=== PATIENT | male | born 1970 | race Caucasian/White ===

== ENCOUNTER 2020-06-16 12:19 | Emergency (ER) | payer BC, SELFPAY ==
[2020-06-16 12:20] VITALS: BP 138/101; PULSE 63; RESP 19; TEMP 36.5; O2SAT 97; BMI 29.3
--- NOTE | 2020-06-16 12:33 | HMH.EDUTC ---
[facility] [place] [facility] [place] Clinical Impression: Acute bronchitis Qualifiers: Bronchitis organism: unspecified organism Qualified Code(s): J20.9 - Acute bronchitis, unspecified Sinusitis Qualifiers: Sinusitis location: unspecified location Chronicity: acute Recurrence: non-recurrent Qualified Code(s): J01.90 - Acute sinusitis, unspecified Disposition: Home, Self-Care Condition on Discharge: Good Instructions: DI for Sinusitis, DI for Acute Bronchitis Additional Instructions: Drink plenty of fluids. Take tylenol or ibuprofen for pain or fever. Take the medications as directed. Follow up with your regular doctor. GO TO THE ER FOR ANY WORSENING SYMPTOMS The cough medication (promethazine dm) will make you drowsy, so don't drive or operate heavy machinery after taking it. Prescriptions: Albuterol Sulfate [Albuterol Sulfate Hfa] 2 puffs IH Q6HP PRN 30 Days #1 hfa.aer.ad PRN Reason: Shortness Of Breath Transmission Status: Received by [facility] Promethazine/Dextromethorphan [Promethazine-Dm Syrup] 5 ml PO Q6HP PRN #240 syrup PRN Reason: Cough Transmission Status: Received by [facility] Amoxicillin/Potassium Clav [Augmentin 875-125 Tablet] 1 tab PO Q12H 10 Days #20 tab Transmission Status: Received by [facility] predniSONE [Prednisone 20mg Tab] 20 mg PO BID 5 Days #10 tab Transmission Status: Received by [facility] Referrals: PCP,No [Primary Care Provider] - Forms: Work/School Release Time of Disposition: 12:52 Medical Decision Making - Medical Records Medical records reviewed: No: I reviewed the patient's medical records. - Fran Inquiry Pt receiving controlled substance: No Vital Signs: 06/16/20 12:20 06/16/20 13:15 Temperature 97.7 F 98 F Temperature Source Oral Pulse Rate 67 Pulse Rate [Right] 63 Respiratory Rate 19 16 Blood Pressure 133/90 Blood Pressure [Right Arm] 138/101 H Blood Pressure Mean [Right Arm] 113 Blood Pressure Source [Right Arm] Automatic Cuff Blood Pressure Position [Right Arm] Sitting 02 Sat by Pulse Oximetry 97 Oxygen Delivery Method Room Air [facility] [place] [facility] [place] - General Stated complaint: possible bronchitis, ear pian, sinus Time Seen by Provider: 06/16/20 12:33 - History of Present Illness Provider Complaint: He states that for the past 3 days he has been getting more congested in his chest and sinuses. He usually gets a sinus infection and bronchitis at this time every year. He denies that he has had any contact with someone with covid-19. He refuses a covid test today. - Related Data Previous Rx's Medication Instructions Recorded Ibuprofen [Ibuprofen 600mg Tab] 600 mg PO Q6H PRN #20 tab 07/21/17 Sulfamethoxazole/Trimethoprim 1 each PO BID #20 tab 07/21/17 [Bactrim DS tablet] cephALEXin [Keflex 500mg Cap] 500 mg PO QID #40 cap 07/21/17 Albuterol Sulfate [Albuterol 2 puffs IH Q6HP PRN 30 Days #1 06/16/20 Sulfate Hfa] hfa.aer.ad Amoxicillin/Potassium Clav 1 tab PO Q12H 10 Days #20 tab 06/16/20 [Augmentin 875-125 Tablet] Promethazine/Dextromethorphan 5 ml PO Q6HP PRN #240 syrup 06/16/20 [Promethazine-Dm Syrup] predniSONE [Prednisone 20mg 20 mg PO BID 5 Days #10 tab 06/16/20 Tab] Allergies Allergy/AdvReac Type Severity Reaction Status Date / Time grass pollen-perennial rye, Allergy Verified 07/21/17 13:52 standar shellfish derived Allergy Verified 07/21/17 13:52 [facility] History - Hepatitis A Screen Attestation statement:: This patient has been screened for Hepatitis A risk factors. I have reviewed the patient's past medical history: Yes - Social History Smoking Status: Current every day smoker Tobacco Type: cigarettes Alcohol Intake: never ROS Obtained: Yes All systems reviewed & no additional complaints - Constitutional Constitutional: Denies body ache, Denies chills, Denies fever(s), Reports poor appetite, Reports malaise - Eyes Eyes: Denies eye disch
[2020-06-16 13:15] VITALS: BP 133/90; PULSE 67; RESP 16; TEMP 36.6
== END 2020-06-16 13:16 | disposition home or self-care (01) ==
PROVIDERS: Emergency Provider Nurse Practitioner Family
DX: J20.9 Acute bronchitis, unspecified (principal); J01.90 Acute sinusitis, unspecified; F17.210 Nicotine dependence, cigarettes, uncomplicated
CPT/HCPCS: 99202; G0463

== ENCOUNTER 2020-09-14 19:10 | Emergency (ER) | payer BC, SELFPAY ==
[2020-09-14 19:39] VITALS: BP 142/100; PULSE 70; RESP 20; TEMP 36.4; O2SAT 98; BMI 29.9
[2020-09-14 19:43] VITALS: BP 142/100; PULSE 70; RESP 20; TEMP 36.4; O2SAT 98
--- NOTE | 2020-09-14 19:51 | HMH.EDUTC ---
[facility] [place] Clinical Impression: Schamberg's disease Tinea pedis Qualifiers: Laterality: bilateral Qualified Code(s): B35.3 - Tinea pedis Foot pain Qualifiers: Laterality: bilateral Qualified Code(s): M79.671 - Pain in right foot Disposition: Home, Self-Care Condition on Discharge: Good Instructions: DI for Athlete's Foot Additional Instructions: Use the medication as directed. Rest and elevated your feet frequently for next few days. Follow up with your primary care doctor. Follow up with the school bus driver/teacher assistant (Dr. Carlton). I put in a referral but you will need to call her office to schedule an appointment. Her office number will be on this paperwork. GO TO THE ER FOR ANY WORSENING SYMPTOMS OR CONCERNS Prescriptions: Clotrimazole 1 applicatio TP BID 14 Days #1 tube Transmission Status: Received by [id number] Referrals: Provider,Referral, [Primary Care Provider] - Akilah Foster DPM [Staff Physician] - Forms: Work/School Release Time of Disposition: 20:08 Medical Decision Making - Medical Records Medical records reviewed: No: I reviewed the patient's medical records. - Fran Inquiry Pt receiving controlled substance: No Vital Signs: 09/14/20 19:39 09/14/20 19:43 Temperature 97.5 F L 97.5 F L Temperature Source Oral Pulse Rate 70 Pulse Rate [Left] 70 Respiratory Rate 20 20 Blood Pressure 142/100 H Blood Pressure [Right Arm] 142/100 H Blood Pressure Mean [Right Arm] 114 02 Sat by Pulse Oximetry 98 [facility] [place] - General Stated complaint: Rash on both feet Time Seen by Provider: 09/14/20 19:51 Mode of Arrival: Ambulatory Source of Information: Patient Limitations: No Limitations Description of Symptoms (Recalled from Triage Doc. by RN): Rash with blisters on bilateral feet that pt noticed tonight. HEENT Symptoms (Recalled from RN notes): No Resp Symptoms (Recalled from RN notes): No Skin Symptoms (Recalled from RN notes): Yes MS Symptoms (Recalled from RN notes): No Functional Status (Recalled from RN notes): wnl - History of Present Illness Provider Complaint: He states that for the past 2 weeks he has noted orangish small spots on both his feet. He also has had itching between his toes on both his feet. He denies any history of diabetes. - Related Data Previous Rx's Medication Instructions Recorded Ibuprofen [Ibuprofen 600mg Tab] 600 mg PO Q6H PRN #20 tab 07/21/17 Albuterol Sulfate [Albuterol 2 puffs IH Q6HP PRN 30 Days #1 06/16/20 Sulfate Hfa] hfa.aer.ad Clotrimazole 1 applicatio TP BID 14 Days #1 tube 09/14/20 Allergies Allergy/AdvReac Type Severity Reaction Status Date / Time grass pollen-perennial rye, Allergy Verified 09/14/20 19:42 standar shellfish derived Allergy Verified 09/14/20 19:42 - Worker's Comp Is this a Worker's Comp case?: No [facility] History - Hepatitis A Screen Drug use history?: No High risk sexual behaviors?: No History of sexually transmitted infection?: No Currently employed?: No Childcare worker?: No Do you have indoor plumbing?: Yes Do you have electricity?: Yes Attestation statement:: This patient has been screened for Hepatitis A risk factors. I have reviewed the patient's past medical history: Yes Medical History: Reports:: Anxiety, Gastroesophageal Reflux Disease(GERD), Hypertension Comment: Exploratory surgery of testicles - Social History Smoking Status: Current every day smoker Tobacco Type: cigarettes # Packs/Day (cigarettes): 1 Alcohol Intake: never Occupational Status: other - Psychiatric History Pschychiatric History:: Reports:: Anxiety Family Hx:: Cancer ROS Obtained: Yes All systems reviewed & no additional complaints - Constitutional Constitutional: Denies chills, Denies fever(s) - Musculoskeletal Musculoskeletal: Reports system reviewed and no additional complaints, except as docu, Denies joint pain, Denies neck pain - Integumentary/Breasts Skin/Breast: Reports
== END 2020-09-14 20:11 | disposition home or self-care (01) ==
PROVIDERS: Emergency Provider Nurse Practitioner Family
DX: L81.7 Pigmented purpuric dermatosis (principal); B35.3 Tinea pedis; K21.9 Gastro-esophageal reflux disease without esophagitis; I10 Essential (primary) hypertension; F41.9 Anxiety disorder, unspecified; F17.210 Nicotine dependence, cigarettes, uncomplicated
CPT/HCPCS: 99202; G0463

== ENCOUNTER 2020-11-05 23:43 | Emergency (ER) | payer BC, SELFPAY ==
[2020-11-06 00:13] VITALS: BP 135/85; PULSE 85; RESP 16; TEMP 36.8; O2SAT 96; BMI 29.9
--- NOTE | 2020-11-06 00:19 | XR_ITS ---
PROCEDURE INFORMATION: Exam: XR Left Knee Exam date and time: 11/06/2020 12:19 AM Age: 50 years old Clinical indication: Patient HX: Pain and swelling left knee no known injury; Additional info: Pain, swelling TECHNIQUE: Imaging protocol: XR Left knee. Views: 3 views. COMPARISON: No relevant prior studies available. FINDINGS: Bones/joints: No acute fracture. No dislocation. No joint effusion. Joint space is preserved. Soft tissues: Normal. IMPRESSION: No acute findings.
--- NOTE | 2020-11-06 02:40 | HMH.EDGENADL ---
ED Disposition Clinical Impression: Swelling Disposition: Home, Self-Care Condition on Discharge: Good Referrals: Preston Vallejo APRN [Primary Care Provider] - - Critical Care Critical Care Time: No Attestation: On 11/05/20, the high probability of a clinically significant, sudden or life threatening deterioration of the following system(s) required my full and direct attention, intervention and personal management. The time I documented below is in addition to time spent performing reported procedures but includes the following listed in this critical care notation. Medical Decision Making - Fran Inquiry Pt receiving controlled substance: No Vital Signs: 11/06/20 00:13 Temperature 98.3 F Temperature Source Oral Pulse Rate [Right Brachial] 85 Respiratory Rate 16 Blood Pressure [Right Arm] 135/85 Blood Pressure Mean [Right Arm] 101 02 Sat by Pulse Oximetry 96 Oxygen Delivery Method Room Air Medical Decision Narrative: The patient is a 50-year-old male who presents to the emergency department with bilateral lower extremity swelling worse at the end of the day that seems to improve by morning. He reports it is worse when he is on his feet all day. He denies any current pain but reports when he is swelling his legs feel tight. He denies any difficulty with ambulation. He denies any calf pain. On physical exam he has no tenderness, edema, full range of motion. X-ray of left knee obtained because he complained of pain to the nurse. X-rays were negative. This was all discussed with the patient. I recommended compression socks and elevation. He will follow-up with his primary care doctor next week for further work-up. He was given return precautions and discharged. General Adult HPI - General Chief complaint: PAIN Stated complaint: Swelling in Left Leg Time Seen by Provider: 11/06/20 00:02 Mode of Arrival: Ambulatory Source of Information: Patient Limitations: No Limitations Description of Symptoms (Recalled from ER Triage Doc. by RN): Pt here with pain in the left knee. No known injury. Reports swelling, pain, and difficulty bearing weight. - History of Present Illness HPI narrative: The patient is a 50-year-old male who presents to the emergency department with bilateral swelling. He reports it is worse at the end of the day after he is on his feet all day. He reports his left leg is sometimes worse. He denies pain but does report they sometimes feel tight near the end of the day and sometimes looks slightly reddish in color. The symptoms resolved by the next morning. He denies any chest pain or shortness of breath. He has never had a blood clot. He denies any issues with his heart. He denies any current pain or swelling he has not taken any medication for his symptoms. He did complain to the nurse of left knee pain which he denies for me and has full range of motion with no tenderness to palpation. - Related Data Home Medications Medication Instructions Recorded Confirmed Cariprazine HCl [Vraylar] 3 mg PO DAILY 11/06/20 11/06/20 Clotrimazole 1 applicatio TP BID 11/06/20 11/06/20 hydroCHLOROthiazide 12.5 mg PO DAILY 11/06/20 11/06/20 [Hydrochlorothiazide 12.5mg Tab] Previous Rx's Medication Instructions Recorded albuterol sulfate 90 mcg/actuation 2 inh INHALATION Q4-6H PRN #1 each 10/19/20 breath activated powder inhaler Allergies Allergy/AdvReac Type Severity Reaction Status Date / Time grass pollen-perennial rye, Allergy Verified 11/06/20 00:17 standar shellfish derived Allergy Verified 11/06/20 00:17 [facility] History - Hepatitis A Screen Drug use history?: No High risk sexual behaviors?: No History of sexually transmitted infection?: No Currently employed?: No Childcare worker?: No Do you have indoor plumbing?: Yes Do you have electricity?: Yes Attestation statement:: This patient has been screened for Hepatitis A risk factors. Medical Histor
[2020-11-06 02:49] VITALS: BP 129/75; PULSE 81; RESP 16; TEMP 36.8; O2SAT 98
== END 2020-11-06 02:50 | disposition home or self-care (01) ==
PROVIDERS: Emergency Provider Emergency Medicine; PCP Nurse Practitioner Family
DX: R60.0 Localized edema (principal); M25.562 Pain in left knee; K21.9 Gastro-esophageal reflux disease without esophagitis; I10 Essential (primary) hypertension; F41.9 Anxiety disorder, unspecified; F17.210 Nicotine dependence, cigarettes, uncomplicated
CPT/HCPCS: 73562; 99282

== ENCOUNTER 2020-12-10 09:11 | Emergency (ER) | payer SELFPAY ==
[2020-12-10 09:51] VITALS: BP 172/102; PULSE 65; RESP 22; TEMP 36.8; O2SAT 95; BMI 29.5
[2020-12-10 09:57] VITALS: BP 172/102; PULSE 65; RESP 21; TEMP 36.8
--- NOTE | 2020-12-10 10:30 | XR_ITS ---
PROCEDURE: XR CHEST 2V CLINICAL HISTORY: cough, congestion COMPARISON: No exams were available for comparison FINDINGS: The cardiomediastinal silhouette and pulmonary vascularity are within normal limits. The lungs are clear without infiltrates, suspicious nodules, or pleural effusions. No acute bony abnormalities. IMPRESSION: No acute findings. Dictated by: Carlos A Mcmahon MD 12/10/2020 11:03 Carlos A Mcmahon MD in [place] 12/10/2020 11:03
--- NOTE | 2020-12-10 11:13 | HMH.EDUTC ---
[facility] [place] Clinical Impression: Acute bronchitis Qualifiers: Bronchitis organism: unspecified organism Qualified Code(s): J20.9 - Acute bronchitis, unspecified Sinusitis Qualifiers: Sinusitis location: unspecified location Chronicity: acute Recurrence: non-recurrent Qualified Code(s): J01.90 - Acute sinusitis, unspecified Disposition: Home, Self-Care Condition on Discharge: Good Instructions: How to Use a Metered-Dose Inhaler, DI for Sinusitis, DI for Acute Bronchitis, Albuterol Oral Inhalation Additional Instructions: Drink plenty of fluids. Take tylenol or ibuprofen for pain or fever. Take the medications as directed. Follow up with your regular doctor. GO TO THE ER FOR ANY WORSENING SYMPTOMS Quarantine until you know the results of your covid-19 test. If it is positive, the health department should call you and give you further instructions about your length of Quarantine and other things. Notify your school or workplace of your results and follow their instructions regarding return to work/school. The cough medication (promethazine dm) will make you drowsy, so don't drive or operate heavy machinery after taking it. Take it at bed time if you are coughing too bad to sleep. The tessalon perles should help your cough some during the day and not make you drowsy. Follow up with your primary care physician regarding your elevated blood pressure. Prescriptions: Albuterol Sulfate [Albuterol Sulfate Hfa] 2 puffs IH Q6HP PRN 30 Days #1 each PRN Reason: Shortness Of Breath Transmission Status: Received by [facility] Promethazine/Dextromethorphan [Promethazine-Dm Syrup] 5 ml PO Q6HP PRN #240 ml PRN Reason: Cough Transmission Status: Received by [facility] Amoxicillin/Potassium Clav [Augmentin 875-125 Tablet] 1 tab PO Q12H 10 Days #20 tab Transmission Status: Received by [facility] methylPREDNISolone [Medrol] 4 mg PO DIRECTED 6 Days #21 packet Transmission Status: Received by [facility] Benzonatate [Tessalon Perle 100mg Cap] 100 mg PO TIDP PRN #30 cap PRN Reason: Cough Transmission Status: Received by [facility] Referrals: Klaber,Preston, [employer] [Primary Care Provider] - Forms: Work/School Release Time of Disposition: 11:24 Medical Decision Making - Medical Records Medical records reviewed: No: I reviewed the patient's medical records. - Fran Inquiry Pt receiving controlled substance: No Vital Signs: 12/10/20 09:51 12/10/20 09:57 Temperature 98.2 F 98.2 F Temperature Source Oral Pulse Rate 65 Pulse Rate [Left] 65 Respiratory Rate 22 21 Blood Pressure 172/102 H Blood Pressure [Right Arm] 172/102 H Blood Pressure Mean [Right Arm] 125 02 Sat by Pulse Oximetry 95 Oxygen Delivery Method Room Air Orders (Tests/Meds): ED MEDICATIONS Discontinued Medications Generic Name Dose Route Start Last Admin Trade Name Freq PRN Reason Stop Dose Admin Ceftriaxone Sodium 1 gm 12/10/20 11:13 Ceftriaxone 1gm Vial IM 12/10/20 11:14 ONCE ONE Lidocaine HCl 0 ml 12/10/20 11:13 Lidocaine 1% 5ml Pf Vial IM 12/10/20 11:14 ONCE ONE Methylprednisolone Sodium Succinate 125 mg 12/10/20 11:13 Methylprednisolone Sod Succ 125mg Vial IM 12/10/20 11:14 ONCE ONE ORDERS Category Date Time Status Covid-19 Nasal PCR ([facility]) Routine Lab 12/10/20 11:27 Re[place] [facility] [place] - General Stated complaint: Covid test / throat, cough, sob, jordan,wk, aches Time Seen by Provider: 12/10/20 10:00 Mode of Arrival: Ambulatory Source of Information: Patient Limitations: No Limitations Description of Symptoms (Recalled from Triage Doc. by RN): pt c/o L ear draining, drainage in the back of his throat, and cough x1wk. pt states he thinks he has bronchitis. HEENT Symptoms (Recalled from RN notes): Yes (L ear drainage and nasal drainage down throat) Resp Symptoms (Recalled from RN notes): Yes (cough) Skin Symp
== END 2020-12-10 11:32 | disposition home or self-care (01) ==
PROVIDERS: Emergency Provider Nurse Practitioner Family; PCP Nurse Practitioner Family
DX: J20.9 Acute bronchitis, unspecified (principal); J01.90 Acute sinusitis, unspecified; Z20.822 Contact with and (suspected) exposure to COVID-19; K21.9 Gastro-esophageal reflux disease without esophagitis; I10 Essential (primary) hypertension; F17.210 Nicotine dependence, cigarettes, uncomplicated
CPT/HCPCS: 71046; 99202; G0463; U0003

== ENCOUNTER 2021-03-05 11:48 | Emergency (ER) | payer BC, SELFPAY ==
--- NOTE | 2021-03-05 12:33 | XR_ITS ---
PROCEDURE INFORMATION: Exam: XR Chest Exam date and time: 03/05/2021 12:33 PM Age: 50 years old Clinical indication: Cough TECHNIQUE: Imaging protocol: XR of the chest. Views: 2 views. COMPARISON: CR XR CHEST 2V 12/10/2020 10:32 AM FINDINGS: Lungs: Hyperexpanded lung valle consistent with COPD. Mild opacities in the left lung base may represent atelectasis or pneumonia.. Pleural spaces: Unremarkable. No pleural effusion. No pneumothorax. Heart/Mediastinum: Unremarkable. No cardiomegaly. Bones/joints: Unremarkable. IMPRESSION: Mild opacities in the left lung base may represent atelectasis or pneumonia..
[2021-03-05 12:38] VITALS: BP 146/107; PULSE 68; RESP 28; TEMP 37.5; O2SAT 100; BMI 29.5
[2021-03-05 13:00] LABS: Adenovirus,PCR Not Detected (NotDetected); Bordetella Pertussis Not Detected (NotDetected); Chlamydophila Pneumoniae, PCR Not Detected (NotDetected); Coronavirus 229E Not Detected (NotDetected); Coronavirus NL63 Not Detected (NotDetected); Coronavirus OC43 Not Detected (NotDetected); Coronovirus HKU1,PCR Not Detected (NotDetected); Human Metapneumovirus Not Detected (NotDetected); Influenza A, PCR Not Detected (NotDetected); Influenza AH1, 2009 Not Detected (NotDetected); Influenza AH1, PCR Not Detected (NotDetected); Influenza AH3,PCR Not Detected (NotDetected); Influenza B, PCR Not Detected (NotDetected); Mycoplasma Pneumoniae, PCR Not Detected (NotDetected); Parainfluenza 1, PCR Not Detected (NotDetected); Parainfluenza 2, PCR Not Detected (NotDetected); Parainfluenza 3, PCR Not Detected (NotDetected); Parainfluenza 4, PCR Not Detected (NotDetected); Respiratory Syncytial Virus Not Detected (NotDetected); Rhinovirus/Enterovirus Not Detected (NotDetected)
--- NOTE | 2021-03-05 13:03 | HMH.EDUTC ---
[facility] [place] Clinical Impression: Bronchitis Sinusitis Qualifiers: Sinusitis location: unspecified location Chronicity: acute Recurrence: non-recurrent Qualified Code(s): J01.90 - Acute sinusitis, unspecified Disposition: Home, Self-Care Condition on Discharge: Good Instructions: DI for Sinusitis Additional Instructions: Drink plenty of fluids. Take tylenol or ibuprofen for pain or fever. Take the medications as directed. Follow up with your regular doctor. GO TO THE ER FOR ANY WORSENING SYMPTOMS Quarantine until you know the results of your covid-19 test. If it is positive, the health department should call you and give you further instructions about your length of Quarantine and other things. Notify your school or workplace of your results and follow their instructions regarding return to work/school. Prescriptions: Promethazine/Dextromethorphan [Promethazine-Dm Syrup] 5 ml PO Q6HP PRN #240 ml PRN Reason: Cough Transmission Status: Received by [facility] Amoxicillin/Potassium Clav [Augmentin 875-125 Tablet] 1 tab PO Q12H 10 Days #20 tab Transmission Status: Received by [facility] predniSONE [Deltasone 10mg tablet] 10 mg PO DAILY 9 Days #21 tab Transmission Status: Received by [facility] guaiFENesin [Mucinex 600mg tablet] 1 - 2 tab PO BIDP PRN #30 tab PRN Reason: Congestion Transmission Status: Received by [facility] Referrals: Preston Vallejo APRN [Primary Care Provider] - Forms: Work/School Release Time of Disposition: 13:37 Medical Decision Making - Medical Records Medical records reviewed: No: I reviewed the patient's medical records. - Fran Inquiry Pt receiving controlled substance: No Vital Signs: 03/05/21 12:38 03/05/21 13:56 Temperature 99.5 F 99.5 F Temperature Source Oral Pulse Rate 68 Pulse Rate [Left] 68 Respiratory Rate 28 H 26 H Blood Pressure 146/107 H Blood Pressure [Right Arm] 146/107 H Blood Pressure Mean [Right Arm] 120 02 Sat by Pulse Oximetry 100 - Lab Data Lab Results 03/05/21 12:42: Chlamy pneumoniae PCR Not detected, Adenovirus (PCR) Not detected, B. pertussis DNA (PCR) Not detected, Coronavirus OC43 (PCR) Not detected, Coronavirus HKU1 (PCR) Not detected, Coronavirus 229E (PCR) Not detected, SARS-CoV-2 (PCR) Detected A, Coronavirus NL63 (PCR) Not detected, Human Metapneumovir PCR Not detected, Influenza A (H1) PCR Not detected, Influ A (H1N1/09) PCR Not detected, Influenza A (H3) PCR Not detected, Influenza Type A (PCR) Not detected, Influenza Type B (PCR) Not detected, M. pneumoniae (PCR) Not detected, Parainfluenza 1 (PCR) Not detected, Parainfluenza 2 (PCR) Not detected, Parainfluenza 3 (PCR) Not detected, Parainfluenza 4 (PCR) Not detected, RSV (PCR) Not detected, Entero/Rhino (PCR) Not detected 03/05/21 12:42: Strep Scn Rapid Clinic Negative Orders (Tests/Meds): ORDERS Category Date Time Status Strep Screen Confirmation Stat Micro 03/05/21 12:42 Received [facility] [place] HPI - General Stated complaint: weakness, runny nose, headache, congestion Time Seen by Provider: 03/05/21 13:03 Mode of Arrival: Ambulatory Source of Information: Patient Limitations: No Limitations Description of Symptoms (Recalled from Triage Doc. by RN): pt c/o myalgia, chills, weakness, loss of appetite, congestion, MIXON, diarrhea, bilateral ear aches, dizziness and SOA. HEENT Symptoms (Recalled from RN notes): Yes (MIXON, bilateral ear aches, congestion and dizziness) Resp Symptoms (Recalled from RN notes): Yes (SOA and nonproductive cough) Skin Symptoms (Recalled from RN notes): No MS Symptoms (Recalled from RN notes): No Functional Status (Recalled from RN notes): wnl - History of Present Illness Provider Complaint: He c/o body aches, cough, sinus congestion for the past 4 days. - Related Data Home Medications Medication Instructions Recorded Confirmed Cariprazine HCl [Vraylar] 3 mg PO DAILY 11/06/20
[2021-03-05 13:49] LABS: UTC Strep Screen (Rapid) Negative (Negative)
[2021-03-05 13:56] VITALS: BP 146/107; PULSE 68; RESP 26; TEMP 37.5
[2021-03-05 18:44] LABS: Coronavirus 19, PCR Detected (NotDetected)
== END 2021-03-05 13:58 | disposition home or self-care (01) ==
PROVIDERS: Emergency Provider Nurse Practitioner Family; PCP Nurse Practitioner Family
DX: J01.90 Acute sinusitis, unspecified (principal); J20.9 Acute bronchitis, unspecified; U07.1 COVID-19; K21.9 Gastro-esophageal reflux disease without esophagitis; I10 Essential (primary) hypertension; F41.9 Anxiety disorder, unspecified; F17.210 Nicotine dependence, cigarettes, uncomplicated
CPT/HCPCS: 71046; 87581; 87632; 87798; 87880; 99202; C9803; G0463; U0003; U0005

== ENCOUNTER 2021-03-14 10:44 | Emergency (ER) | payer BC, SELFPAY ==
[2021-03-14 11:09] VITALS: BP 140/90; PULSE 68; RESP 20; TEMP 36.7; O2SAT 97; BMI 29.5
--- NOTE | 2021-03-14 12:04 | HMH.EDUTC ---
[facility] [place] Clinical Impression: COVID-19 Gastritis Qualifiers: Gastritis type: unspecified gastritis Chronicity: acute Gastritis bleeding: without bleeding Qualified Code(s): K29.00 - Acute gastritis without bleeding Disposition: Home, Self-Care Condition on Discharge: Good Instructions: DI for Gastritis, DI for COVID-19 (Suspected or Confirmed ), Preventing the Spread of Coronavirus Discharge Instructions Additional Instructions: Drink plenty of fluids. Take tylenol or ibuprofen for pain or fever. Follow up with your regular doctor. GO TO THE ER FOR ANY WORSENING SYMPTOMS Prescriptions: Ondansetron [Zofran 4mg ODT] 4 mg PO Q8HP PRN #20 tab PRN Reason: Nausea Transmission Status: Received by [id number] Famotidine [Pepcid 20mg Tablet] 20 mg PO BID 10 Days #20 tab Transmission Status: Received by [id number] Referrals: Preston Vallejo APRN [Primary Care Provider] - Forms: Work/School Release Time of Disposition: 13:11 Medical Decision Making - Medical Records Medical records reviewed: No: I reviewed the patient's medical records. - Fran Inquiry Pt receiving controlled substance: No Vital Signs: 03/14/21 11:09 03/14/21 13:29 Temperature 98.1 F 98.1 F Temperature Source Oral Pulse Rate 68 Pulse Rate [Left] 68 Respiratory Rate 20 20 Blood Pressure 140/90 Blood Pressure [Right Arm] 140/90 Blood Pressure Mean [Right Arm] 106 02 Sat by Pulse Oximetry 97 - Radiology Data #1 Image(s): Chest Image Reviewed: Yes I reviewed the patient's radiology image, Yes I have reviewed radiologist's interpretation Preliminary Findings: Normal/NAD, No Infiltrates Seen PROCEDURE: XR CHEST 2V CLINICAL HISTORY: cough, congestion COMPARISON: CR XR CHEST 2V from 12/10/2020 CR XR CHEST 2V from 03/05/2021 FINDINGS: The cardiomediastinal silhouette and pulmonary vascularity are within normal limits. The lungs are clear without infiltrates, suspicious nodules, or pleural effusions. Minimal thoracic curvature convex left. IMPRESSION: No acute findings. Dictated by: Carlos A Mcmahon MD 03/14/2021 12:27 Carlos A Mcmahon MD in 03/14/2021 12:27 Medical Decision Narrative: His primary goal for coming in today was to get excused for work b/c he was scheduled to return tonight and he still feels weak. He is afraid he will get hurt at work if he goes back feeling weak. [facility] [place] - General Stated complaint: weakness, loss of taste and smell Time Seen by Provider: 03/14/21 12:04 Mode of Arrival: Ambulatory Source of Information: Patient Limitations: No Limitations Description of Symptoms (Recalled from Triage Doc. by RN): pt states this is day 10 of his positive covid quarentine. pt states he is not feeling any better. his main complaints are weakness and diarrhea. HEENT Symptoms (Recalled from RN notes): No Resp Symptoms (Recalled from RN notes): No Skin Symptoms (Recalled from RN notes): No MS Symptoms (Recalled from RN notes): No Functional Status (Recalled from RN notes): weakness - History of Present Illness Provider Complaint: He was diagnosed with Covid-19 10 days ago. He is doing much better, but he is still having weakness and he doesn't feel like he is 100% able to go back to work tonight as scheduled. He denies any shortness of breath or chest pain. He has not ran a fever in about 6 days. He does still have some diarrhea, but he states that is has got much better over the past few days. He has some nausea when he tries to eat much, but he has not vomited. He did not take any antibiotics when he found out that he had covid and antibiotics would not help. So, he is not worried about c. diff. - Related Data Home Medications Medication Instructions Recorded Confirmed Cariprazine HCl [Vraylar] 3 mg PO DAILY 11/06/20 01/11/21 hydroCHLOROthiazide 12.5 mg PO DAILY 11/06/20 01/11/21 [Hydrochlorothiazide 12.5mg Tab] Previous R
[2021-03-14 13:29] VITALS: BP 140/90; PULSE 68; RESP 20; TEMP 36.7
== END 2021-03-14 13:30 | disposition home or self-care (01) ==
PROVIDERS: Emergency Provider Nurse Practitioner Family; PCP Nurse Practitioner Family
DX: U07.1 COVID-19 (principal); K29.00 Acute gastritis without bleeding
CPT/HCPCS: 71046; 99202; G0463

== ENCOUNTER 2021-08-10 11:30 | Emergency (ER) | payer SELFPAY ==
[2021-08-10 12:37] VITALS: BP 172/114; PULSE 89; RESP 21; TEMP 37.1; O2SAT 95; BMI 28.8
[2021-08-10 12:51] LABS: Strep Scrn Group A (Rapid) Negative (Negative)
--- NOTE | 2021-08-10 12:56 | HMH.EDUTC ---
[facility] [place] Clinical Impression: Viral syndrome, Bronchitis Disposition: Home, Self-Care Condition on Discharge: Good Instructions: DI for Acute Bronchitis, DI for Viral Syndrome Additional Instructions: Drink plenty of fluids. Take tylenol or ibuprofen for pain or fever. Take the medications as directed. Follow up with your regular doctor. GO TO THE ER FOR ANY WORSENING SYMPTOMS Quarantine until you know the results of your covid-19 test. Notify your school or workplace of your results and follow their instructions regarding return to work/school. The cough medication (promethazine dm) will make you drowsy, so don't drive or operate heavy machinery after taking it. Prescriptions: Promethazine/Dextromethorphan [Promethazine-Dm Syrup] 5 ml PO Q6HP PRN #240 ml PRN Reason: Cough Transmission Status: Received by [id number] methylPREDNISolone [Medrol] 4 mg PO DIRECTED 6 Days #21 packet Transmission Status: Received by [id number] Azithromycin [Z-Irving 250mg Tab*] 250 mg PO UD DOSE PK #6 tab Transmission Status: Received by [facility] Referrals: Provider,Referral, [Primary Care Provider] - Forms: Work/School Release Time of Disposition: 14:06 Medical Decision Making - Medical Records Medical records reviewed: No: I reviewed the patient's medical records. - Fran Inquiry Pt receiving controlled substance: No Vital Signs: 08/10/21 12:37 08/10/21 14:07 Temperature 98.7 F 98.7 F Temperature Source Oral Pulse Rate 89 Pulse Rate [Radial] 89 Respiratory Rate 21 21 Blood Pressure 160/95 H Blood Pressure [Right Arm] 172/114 H Blood Pressure Mean [Right Arm] 133 02 Sat by Pulse Oximetry 95 - Lab Data Lab results reviewed: Yes: I reviewed the patient's lab results. Lab Results 08/10/21 12:33: Group A Strep Rapid Negative 08/10/21 12:38: Influenza Type A Ag Negative, Influenza Type B Ag Negative 08/10/21 13:32: Chlamy pneumoniae PCR Not detected, Adenovirus (PCR) Not detected, B. pertussis DNA (PCR) Not detected, Coronavirus OC43 (PCR) Not detected, Coronavirus HKU1 (PCR) Not detected, Coronavirus 229E (PCR) Detected A, SARS-CoV-2 (PCR) Not detected, Coronavirus NL63 (PCR) Not detected, Human Metapneumovir PCR Not detected, Influenza A (H1) PCR Not detected, Influ A (H1N1/09) PCR Not detected, Influenza A (H3) PCR Not detected, Influenza Type A (PCR) Not detected, Influenza Type B (PCR) Not detected, M. pneumoniae (PCR) Not detected, Parainfluenza 1 (PCR) Not detected, Parainfluenza 2 (PCR) Not detected, Parainfluenza 3 (PCR) Not detected, Parainfluenza 4 (PCR) Not detected, RSV (PCR) Not detected, Entero/Rhino (PCR) Not detected Orders (Tests/Meds): ORDERS Category Date Time Status Strep Screen Confirmation Stat Micro 08/10/21 12:33 Received [facility] [place] HPI - General Stated complaint: h/a, cough, congestion, lt ear ache Time Seen by Provider: 08/10/21 12:57 Mode of Arrival: Ambulatory Source of Information: Patient Limitations: No Limitations Description of Symptoms (Recalled from Triage Doc. by RN): pt c/o sough, chillls, earache and congestion HEENT Symptoms (Recalled from RN notes): Yes Resp Symptoms (Recalled from RN notes): Yes Skin Symptoms (Recalled from RN notes): No MS Symptoms (Recalled from RN notes): No Functional Status (Recalled from RN notes): wnl - History of Present Illness Provider Complaint: He states that he has been feeling bad for the past 2 days. HE has had chiling, body aches, low grade fever, sore throat and a cough. - Related Data Home Medications Medication Instructions Recorded Confirmed Cariprazine HCl [Vraylar] 3 mg PO DAILY 11/06/20 01/11/21 hydroCHLOROthiazide 12.5 mg PO DAILY 11/06/20 01/11/21 [Hydrochlorothiazide 12.5mg Tab] Previous Rx's Medication Instructions Recorded lisinopril 10 mg tablet 10 mg PO DAILY #30 tab 01/11/21 naproxen 500 mg tablet 500 mg PO BID #30 tab 01/11/21
[2021-08-10 13:21] LABS: UTC Influenza A Antigen Negative (Negative); UTC Influenza B Antigen Negative (Negative)
[2021-08-10 13:52] LABS: Adenovirus,PCR Not Detected (NotDetected); Bordetella Pertussis Not Detected (NotDetected); Chlamydophila Pneumoniae, PCR Not Detected (NotDetected); Coronavirus 19, PCR Not Detected (NotDetected); Coronavirus NL63 Not Detected (NotDetected); Coronavirus OC43 Not Detected (NotDetected); Coronovirus HKU1,PCR Not Detected (NotDetected); Human Metapneumovirus Not Detected (NotDetected); Influenza A, PCR Not Detected (NotDetected); Influenza AH1, 2009 Not Detected (NotDetected); Influenza AH1, PCR Not Detected (NotDetected); Influenza AH3,PCR Not Detected (NotDetected); Influenza B, PCR Not Detected (NotDetected); Mycoplasma Pneumoniae, PCR Not Detected (NotDetected); Parainfluenza 1, PCR Not Detected (NotDetected); Parainfluenza 2, PCR Not Detected (NotDetected); Parainfluenza 3, PCR Not Detected (NotDetected); Parainfluenza 4, PCR Not Detected (NotDetected); Respiratory Syncytial Virus Not Detected (NotDetected); Rhinovirus/Enterovirus Not Detected (NotDetected)
[2021-08-10 14:07] VITALS: BP 160/95; PULSE 89; RESP 21; TEMP 37.1
[2021-08-10 16:10] LABS: Coronavirus 229E Detected (NotDetected)
== END 2021-08-10 14:30 | disposition home or self-care (01) ==
PROVIDERS: Emergency Provider Nurse Practitioner Family
DX: J20.9 Acute bronchitis, unspecified (principal); B34.2 Coronavirus infection, unspecified; K21.9 Gastro-esophageal reflux disease without esophagitis; I10 Essential (primary) hypertension; F41.9 Anxiety disorder, unspecified
CPT/HCPCS: 87430; 87581; 87632; 87798; 87804; 99213; C9803; G0463; U0003; U0005

== ENCOUNTER 2021-08-22 13:35 | Emergency (ER) | payer SELFPAY ==
[2021-08-22 15:10] VITALS: BP 158/111; PULSE 61; RESP 18; TEMP 36.7; O2SAT 96; BMI 32.3
--- NOTE | 2021-08-22 16:21 | HMH.EDUTC ---
[facility] [place] Disposition Clinical Impression: Acute hemorrhoid Disposition: Home, Self-Care Condition on Discharge: Good Instructions: Hemorrhoids, DI for Hemorrhoids Additional Instructions: Take a sitz bath two to three times daily for 15 to 20 minutes. Sit in warm water, covering just your hips and buttocks. This can help reduce itching and irritation. You can take a sitz bath in a few inches of water in a regular tub, but small tubs that fit over toilet seats are also available for this purpose at pharmacies. Following a sitz bath, gently pat the area dry to avoid further irritation. (2) Use ice packs on the area to relieve swelling and pain. but do not place directly on skin Don't push too hard or strain while passing a bowel movement. stool softners may help Clean your anus after each bowel movement by gently patting (rather than wiping) with moistened pads, such as baby wipes. Using hard, dry toilet paper, which may contain fragrance, can cause further irritation. Keep the area clean by bathing or showering daily with warm water. After bathing, gently pat the area dry. (2) Sit on cushions rather than hard surfaces to help lessen the swelling of hemorrhoids and keep new ones from forming. Over the counter Preparation H wipes and suppositories may help with irritation and swelling of hemorroids you can use as directed on package Follow up immediately if any worsening of symptoms Return if needed Prescriptions: Docusate Sodium [Docusate Sodium 100mg Cap] 100 mg PO DAILY #30 cap Transmission Status: Pending to [id number] Referrals: Provider,Referral, [Primary Care Provider] - As needed Forms: Work/School Release Time of Disposition: 16:36 Medical Decision Making - Fran Inquiry Pt receiving controlled substance: No Fran was queried for this patient: No Vital Signs: 08/22/21 15:10 Temperature 98.0 F Temperature Source Oral Pulse Rate [Left Brachial] 61 Respiratory Rate 18 Blood Pressure [Left Arm] 158/111 H Blood Pressure Mean [Left Arm] 126 Blood Pressure Source [Left Arm] Automatic Cuff Blood Pressure Position [Left Arm] Sitting 02 Sat by Pulse Oximetry 96 Oxygen Delivery Method Room Air Medical Decision Narrative: Discussed prescription medication for hemorrhoids and patient declined states that he doesnt have any insurance and wanted to try OTC medications first and he would return if they did not work for prescription medications [facility] [place] HPI - General Stated complaint: hemorrhoid pain Time Seen by Provider: 08/22/21 16:21 Mode of Arrival: Ambulatory Source of Information: Patient, Spouse Limitations: No Limitations Description of Symptoms (Recalled from Triage Doc. by RN): PATIENT C/O BLEEDING HEMMORHOIDS SINCE SUNDAY HEENT Symptoms (Recalled from RN notes): No Resp Symptoms (Recalled from RN notes): No Skin Symptoms (Recalled from RN notes): No MS Symptoms (Recalled from RN notes): No Functional Status (Recalled from RN notes): WNL - History of Present Illness Provider Complaint: Patient states that he has had problems with hemorrhoids for years and constipatin States that he was constipated recently and strained to go to the bathroom and every since he has been having issues with a hemorrhoid States that it bleed last week but not since States that he has been using some cream on it but not helping much so he came in to see if there was something else he could get to make it go down - Related Data Home Medications Medication Instructions Recorded Confirmed Cariprazine HCl [Vraylar] 3 mg PO DAILY 11/06/20 01/11/21 hydroCHLOROthiazide 12.5 mg PO DAILY 11/06/20 01/11/21 [Hydrochlorothiazide 12.5mg Tab] Previous Rx's Medication Instructions Recorded lisinopril 10 mg tablet 10 mg PO DAILY #30 tab 01/11/21 naproxen 500 mg tablet 500 mg PO BID #30 tab 01/11/21 Famotidine [Pepcid 20mg Tablet] 20 mg PO BID 10 Days #20 tab 03/14/21 Ondansetron [Zofran 4mg ODT] 4 mg PO Q8
[2021-08-22 16:37] VITALS: BP 158/111; PULSE 61; RESP 18; TEMP 36.7; O2SAT 96
== END 2021-08-22 16:41 | disposition home or self-care (01) ==
PROVIDERS: Emergency Provider Nurse Practitioner
DX: K64.8 Other hemorrhoids (principal); I10 Essential (primary) hypertension; K59.00 Constipation, unspecified; K21.9 Gastro-esophageal reflux disease without esophagitis; F17.210 Nicotine dependence, cigarettes, uncomplicated
CPT/HCPCS: 99212; G0463

== ENCOUNTER 2022-03-17 17:12 | Emergency (ER) | payer BC, SELFPAY ==
[2022-03-17 17:30] VITALS: BP 156/98; PULSE 70; RESP 19; TEMP 36.8; O2SAT 98; BMI 29.0
--- NOTE | 2022-03-17 17:37 | EXP.UTC ---
Discharge Plan Disposition Patient Disposition: Home, Self-Care Condition: Good Prescriptions Prescriptions: New prednisone [prednisone] 20 mg tablet 20 mg PO BID 5 Days Qty: 10 0RF pseudoephedrine HCl [12 Hour Decongestant] 120 mg Tablet Extended Release 120 mg PO Q12H Qty: 20 0RF cefdinir 300 mg capsule 300 mg PO BID 20 Days Qty: 20 0RF hydroxyzine pamoate [Vistaril] 25 mg capsule 25 mg PO TID Qty: 30 0RF Referrals Follow up/Referrals: Kristina Wright APRN [Primary Care Provider] - See instructions Activity Restrictions/Add. Instructions Additional Instructions/Restrictions: Follow up with Kristina if not improving Warm salt water gargles Clinical Impressions Clinical Impression: Uvulitis, Post-nasal drainage Instructions Patient Instructions: DI for Uvulitis [place]charge ED Provider[place] Ignacia Casas [facility] [place] General Stated complaint: sore throat, Congestion Time Seen by Provider: 03/17/22 17:38 History of Present Illness Provider Complaint: Patient has had cough, congestion, burning in chest for about a week. Thought he had bronchitis and it would run its course. Woke up today just [employer] and felt like he was choking. States he is gagging on mucous in the back of his throat and his uvula is swollen. If he drops his chin towards his chest, he feels as if uvula is blocking his airway. No fever. Onset (ago): hour(s) (3) Location: mouth Radiation: non-radiation Severity: moderate Severity scale (1-10): 8 Quality: burning Relieving factors: none Exacerbating factors: none Associated symptoms: denies other symptoms Treatments prior to arrival: none Related Data Previous Rx's Medication Instructions Recorded cefdinir 300 mg capsule 300 mg PO BID 20 days #20 caps 03/17/22 hydroxyzine pamoate 25 mg capsule 25 mg PO TID #30 caps 03/17/22 (Vistaril) prednisone 20 mg tablet 20 mg PO BID 5 days #10 tabs 03/17/22 pseudoephedrine HCl 120 mg 120 mg PO Q12H #20 tabs 03/17/22 tablet,extended release (12 Hour Decongestant ER) Allergies Allergy/AdvReac Type Severity Reaction Status Date / Time grass pollen-perennial rye, Allergy Verified 09/13/21 16:05 standar shellfish derived Allergy Verified 09/13/21 16:05 [facility] Disclaimer: The information contained in this section may have been updated after the patient was seen, as this information can be updated by other users. Medical History (Updated 03/17/22 @ 18:06 by CARMELA Beck) Anxiety Depression Social History (Updated 03/17/22 @ 17:39 by Kami Munroe RN) Smoking Status: Current every day smoker tobacco type: cigarettes packs per day: 1 second hand exposure: No alcohol intake: never current occupational status: other Travel in the last 8 weeks: None ROS Obtained: Yes All systems reviewed & no additional complaints except as documented ENT Ears, Nose, Mouth, and Throat: Reports as per HPI and Reports sore throat Physical Exam General General appearance: alert and in no apparent distress Head Head exam: atraumatic, normocephalic and normal inspection Eye Eye exam: Present normal appearance, PERRL and EOMI ENT ENT exam: Present TM's normal bilaterally Expanded ENT Exam Mouth exam: Absent drooling or tongue swelling Throat exam: Absent tonsillar erythema, tonsillomegaly or tonsillar exudate Comment: thick discolored PND Uvula swollen, without deviation Neck Neck exam: Present normal inspection, full ROM and trachea midline; Absent meningismus or lymphadenopathy Chest Chest inspection: Present normal inspection and symmetric chest wall rise; Absent tenderness Respiratory Respiratory exam: Present normal lung sounds bilaterally; Absent respiratory distress Cardiovascular Cardiovascular exam: Present regular rate and normal rhythm; Absent JVD Abdominal Exam Abdominal exam: Present soft and normal bowel sounds; Absent distention, tenderness or guarding Extremities Exam
[2022-03-17 18:10] VITALS: BP 156/98; PULSE 70; RESP 19; TEMP 36.8; O2SAT 98
[2022-03-17 18:11] LABS: UTC Strep Screen (Rapid) Negative (Negative)
== END 2022-03-17 18:18 | disposition home or self-care (01) ==
PROVIDERS: Emergency Provider Physician Assistant; PCP Nurse Practitioner Family
DX: R09.82 Postnasal drip (principal); K12.2 Cellulitis and abscess of mouth
CPT/HCPCS: 87880; 99212; G0463

== ENCOUNTER → 2022-10-11 13:56 | Outpatient (CLI) | payer BC, SELFPAY ==
--- NOTE | 2022-10-11 14:07 | XR_ITS ---
FINAL REPORT CLINICAL HISTORY: RT HIP/JOINT PAIN FINDINGS: RIGHT HIP AND PELVIS SERIES Two views of the right hip were obtained and a single AP view of the pelvis was obtained. There is no acute fracture or dislocation. The joint spaces are preserved. There is no soft tissue abnormality. There is a 7.3 cm expansile lytic lesion located in the left ischium of uncertain etiology, may represent cyst or neoplasm. IMPRESSION: No acute abnormality of the right hip. Expansile lytic lesion measuring 7.3 cm located in the left ischium of uncertain etiology, may represent cyst or neoplasm. Recommend bone scan and/MRI for further eval. Reviewed, Interpreted and Dictated by Alfonso Gleason III, MD Transcribed by Mike Awad Authenticated and [facility]
--- NOTE | 2022-10-11 14:07 | XR_ITS ---
FINAL REPORT CLINICAL HISTORY: RT HIP/JOINT PAIN FINDINGS: LUMBAR SPINE Three views demonstrate no acute fracture. There is mild degenerative change to the lumbar spine with small osteophytes. There is no malalignment. IMPRESSION: Mild degenerative change to the lumbar spine with small osteophytes. Reviewed, Interpreted and Dictated by Alfonso Gleason III, MD Transcribed by Mike Awad Authenticated and [facility]
== END ==
LOC: RAD 14:00
PROVIDERS: PCP Nurse Practitioner Family; Visit Provider Nurse Practitioner Family
DX: M25.551 Pain in right hip (principal)
CPT/HCPCS: 72100; 73502

== ENCOUNTER → 2022-10-17 09:06 | Outpatient (CLI) | payer BC, SELFPAY ==
--- NOTE | 2022-10-17 | CA_ITS ---
FINAL REPORT CLINICAL HISTORY: Spider veins- Lower leg varicosities, Smoker, DJD, Sciatica, Leg pain COMPARISON: None FINDINGS: DUPLEX VENOUS SONOGRAPHY OF THE RIGHT LOWER EXTREMITY Multiple transverse and longitudinal scans were performed of the femoropopliteal deep venous system, with augmentation and compression maneuvers. HISTORY: Varicosities, pain FINDINGS: Normal phasic flow was noted in the visualized deep venous system. No intraluminal increased echogenicity is noted to suggest thrombus. There is normal compression and augmentation of the venous structures. No abnormal venous collaterals are seen. IMPRESSION: No evidence of deep venous thrombosis of the right lower extremity. Reviewed, Interpreted and Dictated by Neeru Jackson MD Transcribed by Milagros Hansen Authenticated and [facility]
== END ==
PROVIDERS: PCP Nurse Practitioner Family; Visit Provider Nurse Practitioner Family
DX: I87.2 Venous insufficiency (chronic) (peripheral) (principal); M79.604 Pain in right leg
CPT/HCPCS: 93971

== ENCOUNTER → 2023-03-07 10:41 | Outpatient (CLI) | payer OTHER, BC, SELFPAY ==
--- NOTE | 2023-03-07 10:49 | XR_ITS ---
FINAL REPORT CLINICAL HISTORY: Foot Pain COMPARISON: None FINDINGS: RIGHT FOOT: Three views of the right foot were obtained. There is no acute fracture or dislocation. The joint spaces are intact. There is no soft tissue abnormality. IMPRESSION: No acute bony abnormality. Reviewed, Interpreted and Dictated by Alfonso Gleason III, MD Transcribed by Milagros Hansen Authenticated and [facility]
--- NOTE | 2023-03-07 10:49 | XR_ITS ---
FINAL REPORT CLINICAL HISTORY: Ankle Pain COMPARISON: None FINDINGS: RIGHT ANKLE: Three views of the right ankle were obtained. There is no acute fracture or dislocation. The joint spaces and mortise are intact. Soft tissue swelling is present. IMPRESSION: Soft tissue swelling right ankle without acute bony abnormality identified. Reviewed, Interpreted and Dictated by Alfonso Gleason III, MD Transcribed by Milagros Hansen Authenticated and [facility]
--- NOTE | 2023-03-07 10:49 | XR_ITS ---
FINAL REPORT CLINICAL HISTORY: Ankle Pain COMPARISON: None FINDINGS: LEFT ANKLE: Three views of the left ankle were obtained. There is no acute fracture or dislocation. The joint spaces and mortise are intact. There is no soft tissue abnormality. IMPRESSION: No acute bony abnormality. Reviewed, Interpreted and Dictated by Alfonso Gleason III, MD Transcribed by Milagros Hansen Authenticated and [facility]
--- NOTE | 2023-03-07 10:49 | XR_ITS ---
FINAL REPORT CLINICAL HISTORY: Foot Pain COMPARISON: None FINDINGS: LEFT FOOT: Three views of the left foot were obtained. There is no acute fracture or dislocation. The joint spaces are intact. There is no soft tissue abnormality. IMPRESSION: No acute bony abnormality. Reviewed, Interpreted and Dictated by Alfonso Gleason III, MD Transcribed by Milagros Hansen Authenticated and [facility]
[2023-03-07 13:34] LABS: Basophils # 0.1 K/mm3 (0-0.2); Basophils % 0.4 % (0.1-2.0); Eosinophils # 0.3 K/mm3 (0.0-0.4); Eosinophils % 2.7 % (0.1-12.0); Hematocrit 48.4 % (42.0-52.0); Hemoglobin 16.5 g/dL (14.1-18.0); Lymphocytes # 4.6 K/mm3 (0.7-4.5); Lymphocytes % 37.4 % (10-50); Mean Corpuscular HGB Conc 34.1 g/dL (31.8-35.4); Mean Corpuscular Hemoglobin 29.8 pg (27.0-31.2); Mean Corpuscular Volume 87.6 fl (80-94); Monocytes # 1.1 K/mm3 (0.1-1.0); Neutrophils # 6.3 K/mm3 (1.8-7.8); Neutrophils % 50.4 % (37.0-80.0); Platelet Count 282 K/mm3 (142-424); Red Blood Count 5.53 M/mm3 (4.60-6.20); Red Cell Distribution Width 14.1 % (11.5-17.5); White Blood Count 12.4 K/mm3 (4.8-10.8)
[2023-03-07 14:26] LABS: Alanine Aminotransferase 29 U/L (12-78); Albumin Level 4.3 g/dl (3.5-5.0); Albumin/Globulin Ratio 1.6 (1.1-1.8); Alkaline Phosphatase 89 U/L (38-126); Aspartate Amino Transferase 21 U/L (17-59); Bilirubin,Total 0.4 mg/dl (0.2-1.3); Blood Urea Nitrogen 15 mg/dl (9-20); Calcium 9.3 mg/dl (8.4-10.2); Carbon Dioxide 25 mmol/L (22.0-30.0); Chloride 105 mmol/L (98-107); Estimated Glomerular Filt Rate 78 ml/min (>60); GFR (African American) 95 ML/MIN (>60); Globulin 2.7 g/dL (1.3-3.2); Glucose 98 mg/dl (74-100); Sodium 138 mmol/L (136-145)
[2023-03-07 14:32] LABS: C-Reactive Protein 43.2 mg/L (0-4)
[2023-03-07 14:35] LABS: Erythrocyte Sedimentation Rate 29 mm/hr (0-20)
== END ==
PROVIDERS: PCP Nurse Practitioner Family; Visit Provider Nurse Practitioner Family
DX: M79.672 Pain in left foot (principal); M79.671 Pain in right foot; M25.571 Pain in right ankle and joints of right foot; M25.572 Pain in left ankle and joints of left foot; R60.9 Edema, unspecified
CPT/HCPCS: 36415; 73610; 73630; 80053; 85025; 85651; 86140

== ENCOUNTER 2023-12-10 17:49 | Emergency (ER) | payer BC, SELFPAY ==
[2023-12-10] VITALS (8 sets, daily range): BP systolic 132–171; BP diastolic 82–114; PULSE 54–87; RESP 13–18; TEMP 36.8–37.1; O2SAT 93–97; BMI 30.5
--- NOTE | 2023-12-10 18:01 | ECG_ITS ---
APPROVED REPORT Exam: Resting ECG HR:73 bpm ECG Measurements Heart Rate 73 AXES NV 162 P 53 QRSd 94 QRS 11 QT 381 T 49 QTc 407 Conclusion SINUS RHYTHM POSSIBLE LEFT ATRIAL ENLARGEMENT [-0.1mV P-WAVE IN V1/V2] BORDERLINE ECG Electronically signed by : CARLITOS TOSCANO, 12/10/2023 22:07:48
--- NOTE | 2023-12-10 18:17 | ED_ITS ---
Discharge Plan Disposition Patient Disposition: Home, Self-Care Condition: Good Prescriptions Prescriptions: New prednisone 50 mg tablet 50 mg PO DAILY 5 Days Qty: 5 0RF No Action ibuprofen 800 mg tablet 800 mg PO Q8H Qty: 90 2RF Referrals Follow up/Referrals: Daljit Wright APRN [Primary Care Provider] - See instructions Activity Restrictions/Add. Instructions Additional Instructions/Restrictions: Follow-up with your PCP for further workup of your cervical bone disease and upper extremity symptoms. I have sent in a prescription to your pharmacy please take till complete. Return to ER for any worsening signs or symptoms as needed. Clinical Impressions Clinical Impression: Paresthesia and pain of left extremity, Cervical spine disease, Acute chest wall pain Print Language Print Language: Georgian Discharge ED Provider: Guillermo Doyle General Adult HPI <CARMELA Vaughn - Last Filed: 12/10/23 21:39> General Chief complaint: Neuro Symptoms/Deficit Stated complaint: sent by Daljit-EKG abd Time Seen by Provider: 12/10/23 18:08 Mode of Arrival: Ambulatory Source of Information: Patient Limitations: No Limitations Description of Symptoms (Recalled from ER Triage Doc. by RN): pt presents to ED with c/o left arm numbness. pt was sent by pcp daljit wright for abnormal ekg. pt reports chest pain ongoing intermittent, left arm numbness intermittent for the past two weeks. pt reports he does have high anxiety and coming to the doctor does give him some anxiety. History of Present Illness HPI narrative: Patient presents for evaluation of left upper extremity paresthesia and left- sided chest wall pain. Patient reports that he has had intermittent left upper extremity tingling from his neck shoulder down to the tips of all 5 fingers. 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 He states that the paresthesias come and go and seem to be somewhat positional occasionally. Then today he began having left- sided focal chest wall pain just underneath the left nipple. It does not radiate. He denies any trauma fall fever chills shortness of breath hemoptysis hematochezia melena nausea vomiting diarrhea. Related Data Previous Rx's ?Medication ?Instructions ?Recorded ibuprofen 800 mg tablet 800 mg PO Q8H #90 tabs 04/27/23 prednisone 50 mg tablet 50 mg PO DAILY 5 days #5 tabs 12/10/23 Allergies Allergy/AdvReac Type Severity Reaction Status Date / Time grass pollen-perennial rye, Allergy Verified 04/26/23 11:04 standar shellfish derived Allergy Verified 04/26/23 11:04 PFSH <CARMELA Vaughn - Last Filed: 12/10/23 21:39> [facility], [facility] Disclaimer: The information contained in this section may have been updated after the patient was seen, as this information can be updated by other users. Medical History Anxiety Depression Social History Smoking Status: Current every day smoker tobacco type: cigarettes packs per day: 1 second hand exposure: No alcohol intake: never current occupational status: other Travel in the last 8 weeks: None <CARMELA Vaughn - Last Filed: 12/10/23 21:39> ROS Obtained: Yes Systems reviewed as appropriate & no additional complaints except as documented Physical Exam <CARMELA Vaughn - Last Filed: 12/10/23 21:39> General General appearance: alert and in no apparent distress Respiratory Respiratory exam: Present normal lung sounds bilaterally Cardiovascular Cardiovascular exam: Present regular rate Neurological Exam Neurological exam: Present alert, oriented X3 and CN II-XII intact Expanded Neurological Exam Patient oriented to: Present person, place and time Speech: Present fluid speech Cranial nerves: Normal: EOM function (II, III, IV, ), facial sensation (V), facial palsy (VII), gag reflex (IX), spinal accessory function (XI) and tongue deviation (XII) Cerebellar function: Normal: finger to nose and heel to corral Cerebellar function: normal gait Motor strength - LUE: 5/5 Motor strength - RUE: 5/5 Motor strength - LLE: 5/5 Motor strength - RLE: 5/5 Upper motor neuron exam: Normal: amisha neglect, pronator drift, Babinski sign and sensory extinction Sensory exam upper extremity: Normal: light touch, pin prick, temperature and 2 point discrimination Sensory exam lower extremity: Normal: light touch, pin prick, temperature and 2 point discrimination DTR: 0: biceps (L), biceps (R), brachioradialis (L), brachioradialis (R), triceps (L) and triceps (R) Coma scale eye opening: Spontaneous Coma scale motor response: Obeys commands Coma scale verbal response: Oriented Coma scale total: 15 <Guillermo Doyle MD - Last Filed: 12/10/23 21:49> Expanded Neurological Exam Coma scale total: 15 Medical Decision Making <CARMELA Vaughn - Last Filed: 12/10/23 21:39> Medical Records Medical records reviewed: Yes I reviewed the patient's medical records. Fran Inquiry Pt receiving controlled substance: No Vital Signs: 12/10/23 17:49 12/10/23 19:05 12/10/23 19:30 Temperature 98.2 F Temperature Source Oral Pulse Rate 61 62 Pulse Rate [Left Radial] 69 Respiratory Rate 13 Blood Pressure 156/97 H 144/88 H Blood Pressure [Right Arm] 171/114 H Blood Pressure Mean Blood Pressure Mean [Right Arm] 133 Blood Pressure Source Blood Pressure Position 02 Sat by Pulse Oximetry 96 93 L 93 L Oxygen Delivery Method Room Air Room Air 12/10/23 20:00 12/10/23 20:30 12/10/23 21:00 Temperature Temperature Source Pulse Rate 54 L 54 L 58 L Pulse Rate [Left Radial] Respiratory Rate Blood Pressure 143/91 H 132/82 132/87 Blood Pressure [Right Arm] Blood Pressure Mean Blood Pressure Mean [Right Arm] Blood Pressure Source Blood Pressure Position 02 Sat by Pulse Oximetry 96 94 L 93 L Oxygen Delivery Method 12/10/23 21:30 12/10/23 21:46 Temperature 98.7 F Temperature Source Oral Pulse Rate 87 Pulse Rate [Left Radial] Respiratory Rate 18 Blood Pressure 141/89 H 141/89 H Blood Pressure [Right Arm] Blood Pressure Mean 106 Blood Pressure Mean [Right Arm] Blood Pressure Source Automatic Cuff Blood Pressure Position Sitting 02 Sat by Pulse Oximetry Oxygen Delivery Method Room Air Lab Data Lab results reviewed: Yes I reviewed the patient's lab results. Lab Results 12/10/23 18:08: WBC 12.8 H, RBC 5.47, Hgb 15.6, Hct 48.3, MCV 88.3, MCH 28.5, MCHC 32.3, RDW 14.7, Plt Count 358, MPV 7.9, Neut % (Auto) 44.2, Lymph % (Auto) 44.6, [place] % (Auto) 7.7, Eos % (Auto) 2.3, Baso % (Auto) 1.3, Neut # (Auto) 5.6, Lymph # (Auto) 5.7 H, [place] # (Auto) 1.0, Eos # (Auto) 0.3, Baso # (Auto) 0.2, Sodium 139, Potassium 3.5, Chloride 107, Carbon Dioxide 26, Anion Gap 9.5, BUN 17, Creatinine 1.00, Estimated Creat Clear 122, Estimated GFR 78, Est GFR ( Amer) 94, Glucose 106 H, Calcium 8.7, Magnesium 2.1, Total Bilirubin 0.7, AST 21, ALT 29, Alkaline Phosphatase 87, Troponin I < 0.01, C-Reactive Protein 13.7 H, Total Protein 7.4, Albumin 4.2, Globulin 3.2, Albumin/Globulin Ratio 1.3 12/10/23 18:08 12/10/23 18:08 Orders (Tests/Meds): ED MEDICATIONS Discontinued Medications Generic Name Dose Route Start Last Admin Trade Name Freq PRN Reason Stop Dose Admin Acetaminophen 1,000 mg 12/10/23 19:17 12/10/23 19:31 Acetaminophen 1,000mg/100ml Vial IV 12/10/23 19:18 1,000 mg ONCE ONE Administration Dexamethasone Sodium Phosphate 10 mg 12/10/23 19:17 12/10/23 19:31 Dexamethasone 4mg/Ml 5ml Mdv IV 12/10/23 19:18 10 mg ONCE ONE Administration Lactated Ringer's 1,000 mls @ 999 mls/hr 12/10/23 19:17 12/10/23 19:31 Lactated Ringer's 1000 Ml Bag IV 12/10/23 20:17 999 mls/hr .Q1H1M ONE Administration Ketorolac Tromethamine 15 mg 12/10/23 19:17 12/10/23 19:31 Ketorolac 30mg/Ml Vial IV 12/10/23 19:18 15 mg ONCE ONE Administration Ondansetron HCl 4 mg 12/10/23 19:17 12/10/23 19:31 Ondansetron 4mg/2ml Vial IV 12/10/23 19:18 4 mg ONCE ONE Administration ORDERS Category Date Time Status CT cervical spine wo con Stat Cat Scan 12/10/23 18:[address] head/brain wo con Stat Cat Scan 12/10/23 18:20 Completed Chest XR 2 view (NOT portable) [XR chest 2V] Stat Exams 12/10/23 18:21 Completed CBC w/Auto Diff [Complete Blood Count Auto Diff] Stat Lab 12/10/23 18:08 Completed CMP [Comprehensive Metabolic Panel] Stat Lab 12/10/23 18:08 Completed CRP [C-Reactive Protein] Stat Lab 12/10/23 18:08 Completed Magnesium Stat Lab 12/10/23 18:08 Completed Trop I [Troponin I] Stat Lab 12/10/23 18:08 Completed HEART Score History (anamnesis): Slightly suspicious ECG: Normal Age: 45-65 years Risk factors: 1-2 risk factors Troponin: </= normal limit HEART Score: 2 Medical Decision Narrative: In summary patient is a 53-year-old male who presents to the emergency department for evaluation of left upper extremity paresthesia and chest wall pain. Patient is actually hypertensive with a systolic blood pressure of 171/114 at the time of my exam but otherwise hemodynamically stable upon arrival, and afebrile.. Physical exam is remarkable for an NIH stroke score of 0 at the time of my exam and patient actually has muscle strength 5 out of 5 in the left upper extremity without any focal neurologic deficits globally. Left upper extremities neurovascularly intact currently. Patient has chest wall pain to palpation just under and over the the rib underneath the left nipple without any palpable bony or cartilaginous deformity or defect and no visible evidence of ecchymosis fluctuation or trauma. Breath sounds are clear and equal bilaterally to the bases.. Differential diagnosis includes musculoskeletal strain of the chest wall, degenerative disc disease of the cervical spine, ACS, brachial plexus injury, space-occupying lesion etc.,. Initial workup will be conducted with hematologic labs, CT T scan of the head and C-spine, chest x-ray. Initial interventions include crystalloid bolus Toradol Tylenol Zofran Decadron. 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 Upon repeat evaluation had complete resolution of his symptoms after initial intervention. Given this patient is appropriate for discharge with referral back to his PCP for further workup of his cervical spine disease, prescription for steroids. <Guillermo Doyle MD - Last Filed: 12/10/23 21:49> Vital Signs: 12/10/23 17:49 12/10/23 19:05 12/10/23 19:30 Temperature 98.2 F Temperature Source Oral Pulse Rate 61 62 Pulse Rate [Left Radial] 69 Respiratory Rate 13 Blood Pressure 156/97 H 144/88 H Blood Pressure [Right Arm] 171/114 H Blood Pressure Mean Blood Pressure Mean [Right Arm] 133 Blood Pressure Source Blood Pressure Position 02 Sat by Pulse Oximetry 96 93 L 93 L Oxygen Delivery Method Room Air Room Air 12/10/23 20:00 12/10/23 20:30 12/10/23 21:00 Temperature Temperature Source Pulse Rate 54 L 54 L 58 L Pulse Rate [Left Radial] Respiratory Rate Blood Pressure 143/91 H 132/82 132/87 Blood Pressure [Right Arm] Blood Pressure Mean Blood Pressure Mean [Right Arm] Blood Pressure Source Blood Pressure Position 02 Sat by Pulse Oximetry 96 94 L 93 L Oxygen Delivery Method 12/10/23 21:30 12/10/23 21:46 Temperature 98.7 F Temperature Source Oral Pulse Rate 87 Pulse Rate [Left Radial] Respiratory Rate 18 Blood Pressure 141/89 H 141/89 H Blood Pressure [Right Arm] Blood Pressure Mean 106 Blood Pressure Mean [Right Arm] Blood Pressure Source Automatic Cuff Blood Pressure Position Sitting 02 Sat by Pulse Oximetry Oxygen Delivery Method Room Air Lab Data Lab Results 12/10/23 18:08: WBC 12.8 H, RBC 5.47, Hgb 15.6, Hct 48.3, MCV 88.3, MCH 28.5, MCHC 32.3, RDW 14.7, Plt Count 358, MPV 7.9, Neut % (Auto) 44.2, Lymph % (Auto) 44.6, [place] % (Auto) 7.7, Eos % (Auto) 2.3, Baso % (Auto) 1.3, Neut # (Auto) 5.6, Lymph # (Auto) 5.7 H, [place] # (Auto) 1.0, Eos # (Auto) 0.3, Baso # (Auto) 0.2, Sodium 139, Potassium 3.5, Chloride 107, Carbon Dioxide 26, Anion Gap 9.5, BUN 17, Creatinine 1.00, Estimated Creat Clear 122, Estimated GFR 78, Est GFR ( Amer) 94, Glucose 106 H, Calcium 8.7, Magnesium 2.1, Total Bilirubin 0.7, AST 21, ALT 29, Alkaline Phosphatase 87, Troponin I < 0.01, C-Reactive Protein 13.7 H, Total Protein 7.4, Albumin 4.2, Globulin 3.2, Albumin/Globulin Ratio 1.3 Orders (Tests/Meds): ED MEDICATIONS Discontinued Medications Generic Name Dose Route Start Last Admin Trade Name Lili PRN Reason Stop Dose Admin Acetaminophen 1,000 mg 12/10/23 19:17 12/10/23 19:31 Acetaminophen 1,000mg/100ml Vial IV 12/10/23 19:18 1,000 mg ONCE ONE Administration Dexamethasone Sodium Phosphate 10 mg 12/10/23 19:17 12/10/23 19:31 Dexamethasone 4mg/Ml 5ml Mdv IV 12/10/23 19:18 10 mg ONCE ONE Administration Lactated Ringer's 1,000 mls @ 999 mls/hr 12/10/23 19:17 12/10/23 19:31 Lactated Ringer's 1000 Ml Bag IV 12/10/23 20:17 999 mls/hr .Q1H1M ONE Administration Ketorolac Tromethamine 15 mg 12/10/23 19:17 12/10/23 19:31 Ketorolac 30mg/Ml Vial IV 12/10/23 19:18 15 mg ONCE ONE Administration Ondansetron HCl 4 mg 12/10/23 19:17 12/10/23 19:31 Ondansetron 4mg/2ml Vial IV 12/10/23 19:18 4 mg ONCE ONE Administration ORDERS Category Date Time Status CT cervical spine wo con Stat Cat Scan 12/10/23 18:[address] head/brain wo con Stat Cat Scan 12/10/23 18:20 Completed Chest XR 2 view (NOT portable) [XR chest 2V] Stat Exams 12/10/23 18:21 Completed CBC w/Auto Diff [Complete Blood Count Auto Diff] Stat Lab 12/10/23 18:08 Completed CMP [Comprehensive Metabolic Panel] Stat Lab 12/10/23 18:08 Completed CRP [C-Reactive Protein] Stat Lab 12/10/23 18:08 Completed Magnesium Stat Lab 12/10/23 18:08 Completed Trop I [Troponin I] Stat Lab 12/10/23 18:08 Completed ECG Data Tracing #1: Independently interpreted by me rate of 73, rhythm is regular, axis normal, no ST elevation in anatomical contiguous leads, QTc 407 HEART Score HEART Score: 2 Medical Decision Narrative: In summary patient is a 53-year-old male who presents to the emergency department for evaluation of left upper extremity paresthesia and chest wall pain. Patient is actually hypertensive with a systolic blood pressure of 171/114 at the time of my exam but otherwise hemodynamically stable upon arrival, and afebrile.. Physical exam is remarkable for an NIH stroke score of 0 at the time of my exam and patient actually has muscle strength 5 out of 5 in the left upper extremity without any focal neurologic deficits globally. Left upper extremities neurovascularly intact currently. Patient has chest wall pain to palpation just under and over the the rib underneath the left nipple without any palpable bony or cartilaginous deformity or defect and no visible evidence of ecchymosis fluctuation or trauma. Breath sounds are clear and equal bilaterally to the bases.. Differential diagnosis includes musculoskeletal strain of the chest wall, degenerative disc disease of the cervical spine, ACS, brachial plexus injury, space-occupying lesion etc.,. Initial workup will be conducted with hematologic labs, CT T scan of the head and C-spine, chest x-ray. Initial interventions include crystalloid bolus Toradol Tylenol Zofran Decadron. 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 Upon repeat evaluation had complete resolution of his symptoms after initial intervention. Given this patient is appropriate for discharge with referral back to his PCP for further workup of his cervical spine disease, prescription for steroids. I was consulted by the SORAYA, and we discussed the complexity of the problems being addressed. I approved the treatment and management plan for this patient's care in the emergency department, thus performing a substantive portion of the medical decision making. Guillermo Doyle MD Critical Care <CARMELA Vaughn - Last Filed: 12/10/23 21:39> Critical Care Time Critical Care Time: No
--- NOTE | 2023-12-10 18:20 | CT_ITS ---
PROCEDURE INFORMATION: Exam: CT Head Without Contrast Exam date and time: 12/10/2023 6:37 PM Age: 53 years old Clinical indication: Other: Chest pain, left upper extremity paresthesia TECHNIQUE: Imaging protocol: Computed tomography of the head without contrast. Radiation optimization: All CT scans at this facility use at least one of these dose optimization techniques: automated exposure control; mA and/or kV adjustment per patient size (includes targeted exams where dose is matched to clinical indication); or iterative reconstruction. COMPARISON: No relevant prior studies available. FINDINGS: Brain: No acute intracranial hemorrhage. No evidence of large vessel infarct. No mass effect or midline shift. Cerebral ventricles: No vertriculomegaly. Paranasal sinuses: Scattered mucosal thickening of the ethmoid air cells. Mild mucosal thickening of the right sphenoid sinus. Included paranasal sinuses are otherwise clear. No air-fluid levels. Mastoid air cells: Visualized mastoid air cells are unremarkable Orbital cavities: Visualized orbits are unremarkable. Bones: Unremarkable. No acute fracture. Soft tissues: Unremarkable. IMPRESSION: No CT evidence of acute intracranial abnormality.
--- NOTE | 2023-12-10 18:21 | XR_ITS ---
PROCEDURE INFORMATION: Exam: XR Chest Exam date and time: 12/10/2023 6:20 PM Age: 53 years old Clinical indication: Pain; Left-sided; Additional info: Chest pain TECHNIQUE: Imaging protocol: Radiologic exam of the chest. Views: 2 views. COMPARISON: CR XR CHEST 2V 03/14/2021 12:06 PM FINDINGS: Lungs: Unremarkable. No consolidation. Pleural spaces: Unremarkable. No pleural effusion. No pneumothorax. Heart/Mediastinum: Unremarkable. No cardiomegaly. Bones/joints: Unremarkable. IMPRESSION: No acute findings.
[2023-12-10 18:27] LABS: Basophils # 0.2 K/mm3 (0-0.2); Basophils % 1.3 % (0.1-2.0); Eosinophils # 0.3 K/mm3 (0.0-0.4); Eosinophils % 2.3 % (0.1-12.0); Hematocrit 48.3 % (42.0-52.0); Hemoglobin 15.6 g/dL (14.1-18.0); Lymphocytes # 5.7 K/mm3 (0.7-4.5); Lymphocytes % 44.6 % (10-50); Mean Corpuscular HGB Conc 32.3 g/dL (31.8-35.4); Mean Corpuscular Hemoglobin 28.5 pg (27.0-31.2); Mean Corpuscular Volume 88.3 fl (80-94); Mean Platelet Volume 7.9 fl (7.4-10.4); Monocytes % 7.7 % (1.7-9.3); Neutrophils # 5.6 K/mm3 (1.8-7.8); Neutrophils % 44.2 % (37.0-80.0); Platelet Count 358 K/mm3 (142-424); Red Blood Count 5.47 M/mm3 (4.60-6.20); Red Cell Distribution Width 14.7 % (11.5-17.5); White Blood Count 12.8 K/mm3 (4.8-10.8)
--- NOTE | 2023-12-10 18:27 | CT_ITS ---
PROCEDURE INFORMATION: Exam: CT Cervical Spine Without Contrast Exam date and time: 12/10/2023 6:40 PM Age: 53 years old Clinical indication: Pain; Other: Left upper extremity paresthesia TECHNIQUE: Imaging protocol: Computed tomography of the cervical spine without contrast. Radiation optimization: All CT scans at this facility use at least one of these dose optimization techniques: automated exposure control; mA and/or kV adjustment per patient size (includes targeted exams where dose is matched to clinical indication); or iterative reconstruction. COMPARISON: CT HEAD/BRAIN WO CON 12/10/2023 6:37 PM FINDINGS: Bones: No acute fracture. Normal alignment. Generalized abnormal appearance of the vertebrae with sclerotic appearance and several lucent foci, most notable at C5 with 5 mm inferior endplate lucency. Mild multilevel degenerative changes, more advanced at C5-C6 which demonstrates disc space narrowing, small endplate osteophytes, mild endplate irregularities, and uncovertebral hypertrophy with moderate versus severe neural foraminal narrowing on the left and mild on the right. No severe spinal canal stenosis. Paranasal sinuses: Mild mucosal thickening of the right sphenoid sinus. Scattered mucosal thickening of the ethmoid air cells. Mastoid air cells: Mastoid air cells are clear. Lungs: Lung apices are unremarkable. Lymph nodes: Few mildly prominent bilateral cervical lymph nodes measuring up to 1 cm in short axis dimension, likely reactive. Soft tissues: Unremarkable. IMPRESSION: Abnormal appearance of the vertebrae which could be secondary to chronic dialysis, correlate clinically. Degenerative change most advanced at C5-C6 which demonstrates endplate irregularity and lucency, findings which may be secondary to discitis, renal osteodystrophy/brown tumor, or amyloidosis. There is moderate versus severe neural foraminal narrowing on the left and mild on the right at this level.
[2023-12-10 18:31] LABS: Albumin Level 4.2 g/dl (3.5-5.0); Chloride 107 mmol/L (98-107); Potassium 3.5 mmoL/L (3.5-5.1); Sodium 139 mmol/L (136-145)
[2023-12-10 18:34] LABS: Alanine Aminotransferase 29 U/L (12-78); Albumin/Globulin Ratio 1.3 (1.1-1.8); Alkaline Phosphatase 87 U/L (38-126); Anion Gap 9.5 mEq/L (5-15); Aspartate Amino Transferase 21 U/L (17-59); Bilirubin,Total 0.7 mg/dl (0.2-1.3); Blood Urea Nitrogen 17 mg/dl (9-20); Carbon Dioxide 26 mmol/L (22.0-30.0); Creatinine Clearance Estimated 122 mL/min (50-200); Estimated Glomerular Filt Rate 78 ml/min (>60); GFR (African American) 94 ML/MIN (>60); Globulin 3.2 g/dL (1.3-3.2); Total Protein,Serum 7.4 g/dl (6.3-8.2)
[2023-12-10 18:35] LABS: Calcium 8.7 mg/dl (8.4-10.2); Glucose 106 mg/dl (74-100)
[2023-12-10 18:40] LABS: C-Reactive Protein 13.7 mg/L (0-4)
[2023-12-10 19:06] LABS: Magnesium 2.1 mg/dl (1.6-2.3)
[2023-12-10] MEDS: LACTATED RINGERS 1000ML 1,000 ML 999 ML IV (19:31)
[2023-12-10] MEDS: DEXAMETHASONE 4MG/ML 5ML MDV 10 MG IV (19:31)
[2023-12-10] MEDS: KETOROLAC 30MG/ML VIAL 15 MG IV (19:31)
[2023-12-10] MEDS: ONDANSETRON 4MG/2ML VIAL 4 MG IV (19:31)
[2023-12-10] MEDS: ACETAMINOPHEN 1,000MG/100ML VIAL 1000 MG IV (19:31)
--- NOTE | 2023-12-10 19:47 | PC.NURSE ---
Provided patient with sandwich, chips, drink at this time. Provider approved PO intake at this time.
[2023-12-10 21:31] LABS: Troponin I < 0.01 ng/ml (0.00-0.034)
== END 2023-12-10 21:47 | disposition home or self-care (01) ==
PROVIDERS: Physician Assistant; Emergency Provider Emergency Medicine; PCP Nurse Practitioner Family
DX: R07.89 Other chest pain (principal); R20.2 Paresthesia of skin; M79.602 Pain in left arm; M50.322 Other cervical disc degeneration at C5-C6 level; M48.02 Spinal stenosis, cervical region
CPT/HCPCS: 70450; 71046; 72125; 80053; 83735; 84484; 85025; 86140; 93005; 96361; 96374; 96375; 99285; J0131; J1100; J1885; J2405; J7120

== ENCOUNTER 2024-01-11 15:58 | Outpatient (CLI) | payer BC, SELFPAY | END 2024-01-11 23:59 | disposition home or self-care (01) | LOC: RAD 15:58 | PROVIDERS: PCP Nurse Practitioner Family; Visit Provider Nurse Practitioner Family | DX: R93.89 Abnormal findings on diagnostic imaging of other specified body structures (principal) ==

== ENCOUNTER 2024-10-07 11:16 | Emergency (ER) | payer BC, SELFPAY ==
--- OUTSIDE RECORDS SUMMARY | 2024-08-14 12:00 | XMS_ITS | Encounter Summary ---
Author Organization [facility] Address [address] [place] [address] Care Team Providers Care Hospitality Job Titles Name Role Phone Kristina Wright EMANI Primary Care Provider [phone] Reason for Visit * Reason Comments Follow-up Encounter Details Date Type Department Care Team ([facility] Contact Info) Description 08/14/2024 12:00 PM EDT Office Visit [facility] [address] , [address] [place] [address] Malia Metz MD [address] [place] [address] Bone lesion (Primary Dx); Chronic low back pain, unspecified back pain laterality, unspecified whether sciatica present Social History Tobacco Use Types Packs/Day Years Used Date Smoking Tobacco: Every Day Cigarettes 1 15 Smokeless Tobacco: Never Tobacco Cessation:Ready to Q uit: Not Asked; Counseling Given: Not Answered Alcohol Use Standard Drinks/Week Comments Never 0 (1 standard drink = 0.6 oz pur e alcohol) PHQ-2 Answer Date Recorded Patient Health Questionnaire-2 Score 1 08/14/2024 PHQ-9 Answer Date Recorded Patient Health Questionnaire-9 Score 0 05/30/2024 Sex and Gender Information Value Date Recorded Sex Assigned at Not on file Legal Sex Male 6:48 PM EDT Gender Identity Not on file Sexual Orientation Not on file documented as of this encounter Last Filed Vital Signs Vital Sign Reading Time Taken Comments Blood Pressure 136/95 08/14/2024 12:02 PM EDT Pulse 62 08/14/2024 12:02 PM EDT Temperature 36.7 C (98.1 F) 08/14/2024 12:02 PM EDT Respiratory Rate - - Oxygen Saturation 95% 08/14/2024 12:02 PM EDT Inhaled Oxygen Concentration - - Weight 106 kg (233 lb 14.5 oz) 08/14/2024 12:02 PM EDT Height 185.4 cm (6' 1 ) 08/14/2024 12:02 PM EDT Body Mass Index 30.86 08/14/2024 12:02 PM EDT documented in this encounter Functional Status * Over the past 2 weeks, how often have you been bothered by any of the following problems? Question Answer Date of Assessment Author Little interest or pleasure in doing things Not at all 08/14/2024 12:01 PM EDT Naveen Quintero Feeling down, depressed, or hopeless Several days 08/14/2024 12:01 PM EDT Naveen Quintero Patient Health Questionnaire-2 Score 1 08/14/2024 12:01 PM EDT Logan Quintero * If you checked off any problems on this questionnaire so far, Question Answer Date of Assessment Author How difficult have these problems made it for you to do your work, take care of things at home, or get along with other people? Not difficult at all 08/14/2024 12:01 PM EDT Barbara Quintero documented as of this encounter Miscellaneous Notes * Progress Notes - Malia Metz MD - 08/14/2024 12:00 PM EDT Demarcus Martin is a 54 y.o. male who is referred by Kristina Davis APRN for evaluation and management of bone lesion of unclear etiology. He is accompanied by his partner. He is seen for follow up today to review results of DXA and labs and discuss treatment He was seen by a neurologist for tremor and started on propranolol. He has noticed significant improvement following that Dt: May 2024 DXA: Lunar T scores Normal bone density TBS L1-L4 of 1.514 indicates normal microarchitecture VFA: no e/o vertebral compression deformity NM bone scan: No abnormal or suspicious radiotracer uptake associated with the radiographic findings in the left ischium. Absence of abnormal bone scan findings suggestive of benign process. No scintigraphic evidence of abnormal osteoblastic bone pathology. Patient presents with history of hip pain and low back pain since 2 years He is very concerned as 1 of possible diagnosis given to him has been osteodystrophy and he feels that his Kidneys are sucking out his bones Prior x-rays appear to have shown a Hip lesion 7.3 cm long Patient has significant anxiety about this issue He has also developed head shaking and tremor Also diagnosed with Cervical disc dis 5-6-7 Taking Wellbutrin for a year No # No prior treatment for bone disease DXA scan Date May 2024 Normal bone density, normal TBS, no VCF on VFA Bone disease history: Height loss none noted Kyphosis/scoliosis none noted Ambulation Independent, Can do stairs Falls one fall Balance poor Pain some in hips Dental history:Dentition intact PMH: No cancers, XRT, renal stones, dental issues/scheduled dental procedures, manager long term care corticosteroid; No thyroid/parathyroid/kidney/liver disease; No RA/GI disease (celiac, IBD, bariatric surgery, short gut, ileostomy)/HIV, meds/prolonged immobility No premature hearing loss, premature dental loss PSH: No surgical history of bariatric surgery, joint surgeries/joint replacements, spine fusion, kyphoplasty/vertebroplasty Smoker frm age 16 yrs to now 1ppd No ETOH Off work since Apr Was a industrial truck operator Family History: mother thyroid dis half sister auto-immune [place] ancestry Medical History[1] Family History[2] Surgical History[3] Social History Tobacco Use Smoking status: Every Day Current packs/day: 1.00 Average packs/day: 1 pack/day for 15.0 years (15.0 ttl pk-yrs) Types: Cigarettes Smokeless tobacco: Never Substance Use Topics Alcohol use: Never Current Outpatient Medications Medication Instructions ALPRAZolam (Xanax) 0.25 MG tablet TAKE ONE (1) TABLET TWICE A DAY BY ORAL ROUTE NEEDED FOR THREE(3) DAYS. buPROPion (Wellbutrin) 75 MG tablet TAKE ONE (1) TABLET BY MOUTH DAILY FOR TWO (2) WEEKS THEN INCREASE TO ONE (1) TABLET TWICE DAILY FOR TWO (2) WEEKS lisinopril 5 MG tablet take one (1) tablet every day by oral route. naproxen (Naprosyn) 375 MG tablet 1 tablet, 2 times daily propranolol (Inderal) 10 MG tablet TAKE ONE (1) TABLET BY MOUTH EVERY 12 HOURS FOR 14 DAYS, THEN TWO (2) TABLETS EVERY 12 HOURS FOR 30 DAYS. Allergies[4] The following portions of the chart were reviewed this encounter and updated as appropriate: Tobacco Allergies Meds Problems Med Hx Surg Hx Fam Hx REVIEW OF SYSTEMS A 14 point ROS was obtained and is negative except as otherwise noted in HPI. PHYSICAL EXAMINATION Visit Vitals BP (!) 136/95 (BP Location: Left arm, Patient Position: Sitting, BP Cuff Size: Adult) Pulse 62 Temp 36.7 ??C (98.1 ??F) (Oral) SpO2 95% Constitutional: No acute distress. Weight 106 kg (233 lb 14.5 oz) Height 1.854 m (6' 1 ) BMI: Body mass index is 30.86 kg/m??. BSA: Body surface area is 2.34 meters squared. HEENT: normal. Cardiovascular: No JVD, no edema Pulmonary: Normal effort of breathing. Abdominal: no distension Musculoskeletal: Normal extremity movements Skin: No rashes or lesions. Neurologic: No focal deficits Psychiatric: Orientated to person, place, and time: Normal Mood and affect LAB RESULTS Renal/MBD Panel: Creatinine 0.94 Calcium 10.3 phos 3.6 Mag 2.1 Albumin 4.4 ALP 114 AST 14 ALT 24 PTH 12 Nutritional: Pre albumin 26 Paraproteinemia Labs: SPEP negative for M spike Endocrine profile: Testosterone 383 free 4.2 Bone Turnover Markers: BSAP 15.3 CTX 221 OC 31 VITAMIN D 25 Vitamin D25 27.1 VITAMIN D 1,25 Calcitriol 29.5 Urine studies: Lab Results Component Value Date CALCIUMUR 17.6 06/11/2024 PHOSUR 59.6 06/11/2024 CREATUR 164 06/11/2024 ASSESSMENT/PLAN Demarcus Martin is a 54 y.o. male who presents for evaluation and management of pain in the right hip associated with a bony lesion radiologically that he is concerned about. Xrays show a well-corticated lesion in the left ischium measuring approximately 2.9 x 7.3 cm with expanded contour of theischium, likely fibrous dysplasia. No cortical destruction or aggressive periosteal reaction. Bone density is normal currently and he has no fracture history He declined labs d/t anxiety for blood draws and these are pending Given his significant head and extremity tremor as well as symptoms of peripheral neuropathy we will request a neurology referral Nuclear medicine bone scan is negative for any activity further supporting a benign etiology The only abnormality in Labs is a borderline calcium. Patient declines a repeat lab draw today. Review of past labs does not show any past instance of a high serum calcium Patient has follow-up with other providers and was advised to have this followed up further lab draws we will see him back in a year to review labs and radiology and ensure that the lesion is not progressive. Problem List Items Addressed This Visit Nervous Chronic low back pain Musculoskeletal Bone lesion - Primary Relevant Orders Vitamin D 25 Hydroxy C-Telopeptide Renal Function Panel, Plasma Bone Specific Alkaline Phosphatase PTH Panel 1 XR Hips Bilateral W or WO Pelvis 3-4 Views We will see him back in a year with labs and imaging Monitoring for drug toxicity: NA for this visit Counseling Documentation: He should continue adequate dietary intake of Ca and take vit D 3096-2264 units daily. He is also advised exercises for fall prevention, muscle strengthening and balance exercises. Avoidance of tobacco and alcohol should be observed. He was also counseled to increase his dietary protein intake. The patient and was counseled regarding COUNSELING TOPICS: diagnostic results, prognosis, risks and benefit of treatment options, risk factor reductions, diagnostic impressions, importance of compliance with treatment, manager long term care nature of condition, and need for continued evaluation and followup. Education provided was verbal counseling. Additional time was spent in care coordination including medical record review. Encounter Timing: I personally spent a total of 25 minutes on this encounter. This time includes face to face with patient, counseling and discussion, lab/result interpretation, coordination of follow-up care, document review. MDM: - was based on the following: History obtained from family Past imaging reviewed Old chart reviewed Imaging directly visualized and personally interpreted DXA scan or [facility] xrays Comorbidities complicating the care of the patient fibrous dysplasia peripheral neuropathy head tremor cervical spine disease anxiety identified SDOH that significantly limit treatment Psychiatric illness, Transportation problems, and Distance traveled for medical care Thank you very much for allowing me to participate in the care of Demarcus Martin. If you have any questions please do not hesitate to contact me. ORDERS PLACED THIS ENCOUNTER Orders Placed This Encounter Procedures XR Hips Bilateral W or WO Pelvis 3-4 Views Standing Status: Future Expected Date: 08/14/2025 Expiration Date: 02/14/2026 Views: AP Views: Lateral Views: AP Pelvis Is this exam for research?: No Reason for exam:: L ischial lesion Release to patient in [facility]: Immediate [1] Vitamin D 25 Hydroxy Standing Status: Future Expected Date: 08/10/2025 Expiration Date: 02/14/2026 Release to patient in [facility]: Immediate [1] C-Telopeptide Standing Status: Future Expected Date: 08/10/2025 Expiration Date: 02/14/2026 Release to patient in [facility]: Immediate [1] Renal Function Panel, Plasma Standing Status: Future Expected Date: 08/10/2025 Expiration Date: 02/14/2026 Release to patient in [facility]: Immediate [1] Bone Specific Alkaline Phosphatase Standing Status: Future Expected Date: 08/10/2025 Expiration Date: 02/14/2026 Release to patient in [facility]: Immediate PTH Panel 1 Standing Status: Future Expected Date: 08/10/2025 Expiration Date: 02/14/2026 Release to patient in [facility]: Immediate Electronically Signed by: Malia Metz MD - 08/24/2024 - 8:05 PM [1] Past Medical History: Diagnosis Date Chronic kidney disease Hypertension 05/2023 Low back pain Sciatica Spinal stenosis [2] Family History Problem Relation Name Age of Onset Autoimmune disease Mother Nevin [3] History reviewed. No pertinent surgical history. [4] No Known Allergies documented in this encounter Plan of Treatment Upcoming Encounters Date Type Department Care Team (Late st Contact Info) Description 08/26/2025 11:40 AM EDT Office Visit [facility] [address], [address] [place] [address] Malia Metz MD [address] [place] [address] Scheduled Orders Name Type Priority Associated Diagnoses Orde r Schedule Vitamin D 25 Hydroxy Lab Routine Bone lesion Expected: 08/10/2025 (Approximate), Expires: 02/14/2026 C-Telopeptide Lab Routine Bone lesion Expected: 08/10/2025 (Approximate), Expires: 02/14/2026 Renal Function Panel, Plasma Lab Routine Bone lesion Expected: 08/10/2025 (Approximate), Expires: 02/14/2026 Bone Specific Alkaline Phosphatase Lab Routine Bone lesion Expected: 08/10/2025 (Approximate), Expires: 02/14/2026 PTH Panel 1 Lab Routine Bone lesion Expected: 08/10/2025 (Approximate), Expires: 02/14/2026 XR Hips Bilateral W or WO Pelvis 3-4 Views Imaging Routine Bone lesion Expected: 08/14/2025 (Approximate), Expires: 02/14/2026 documented as of this encounter Visit Diagnoses Diagnosis Bone lesion- Primary Disorder of bone and cartilage, unspecified Chronic low back pain, unspecified back pain laterality, unspecified whether sciatica present documented in this encounter Additional Health Concerns Assessment Noted Time PHQ-9 Depression Total Score: 0 05/30/19 25 9:38 AM EST A fall risk assessment has been complete d for the patient 08/14/2024 12:01 PM EDT A Body Mass Index follow-up plan has been documented for the patient 08/14/2024 12:37 PM EDT documented as of this encounter Care Teams Hospitality Job Titles Relationship Specialty Start Date End Date Kristina Wright APRN [address] [place] [id number] PCP - General 01/07/24 documented as of this encounter
--- OUTSIDE RECORDS SUMMARY | 2024-09-02 12:50 | XMS_ITS | Encounter Summary ---
Author Organization [facility] Address [address] [place] [address] Care Team Providers Care [employer] Name Role Phone Kristina Wright INDEX CLERK Primary Care Provider [phone] Reason for Visit * Reason Comments Follow-up Encounter Details Date Type Department Care Team (Late st Contact Info) Description 09/02/2024 12:50 PM EDT Office Visit [facility] [address] [place] [address] Nadine Key, INDEX CLERK [address] [place] [address] Arthralgia, unspecified joint (Primary Dx) Social History Tobacco Use Types Packs/Day Years Used Date Smoking Tobacco: Every Day Cigarettes 1 15 Smokeless Tobacco: Never Tobacco Cessation:Ready to Q uit: Not Asked; Counseling Given: Not Answered Alcohol Use Standard Drinks/Week Comments Never 0 (1 standard drink = 0.6 oz pur e alcohol) PHQ-2 Answer Date Recorded Patient Health Questionnaire-2 Score 0 09/02/2024 PHQ-9 Answer Date Recorded Patient Health Questionnaire-9 Score 0 09/02/2024 Sex and Gender Information Value Date Recorded Sex Assigned at Not on file Legal Sex Male 6:48 PM EDT Gender Identity Not on file Sexual Orientation Not on file documented as of this encounter Last Filed Vital Signs Vital Sign Reading Time Taken Comments Blood Pressure 143/84 09/02/2024 12:28 PM EDT Pulse 56 09/02/2024 12:28 PM EDT Temperature 36.7 C (98 F) 09/02/2024 12:28 PM EDT Respiratory Rate 16 09/02/2024 12:28 PM EDT Oxygen Saturation 97% 09/02/2024 12:28 PM EDT Inhaled Oxygen Concentration - - Weight 105 kg (231 lb 7.7 oz) 09/02/2024 12:28 P M EDT Height 185.4 cm (6' 1 ) 09/02/2024 12:28 PM EDT Body Mass Index 30.54 09/02/2024 12:28 PM EDT documented in this encounter Functional Status * Over the past 2 weeks, how often have you been bothered by any of the following problems? Question Answer Date of Assessment Author Little interest or pleasure in doing things Not at all 09/02/2024 12:36 PM EDT Patience Browning Feeling down, depressed, or hopeless Not at all 09/02/2024 12:36 PM EDT Patience Browning Patient Health Questionnaire -2 Score 0 09/02/2024 12:36 PM EDT Patience Browning * Question Answer Date of Assessment Author Trouble falling or staying a sleep, or sleeping too much Not at all 09/02/2024 12:36 PM EDT Patience Browning Feeling tired or having erum le energy Not at all 09/02/2024 12:36 PM EDT Patience Browning Poor appetite or overeating Not at all 09/02/2024 12 :36 PM EDT Patience Browning Feeling bad about yourself - or that you are a failure or have let yourself or your family down Not at all 09/02/2024 12:36 PM EDT Patience Rolon Trouble concentrating on thi ngs, such as reading the newspaper or watching television Not at all 09/02/2024 12:36 PM EDT Patience Browning Moving or speaking so slowly that other people could have noticed? Or the opposite - being so fidgety or restless that you have been moving around a lot more than usual. Not at all 09/02/2024 12:36 PM EDT Patience Browning Thoughts that you would be b ankit off or hurting yourself in some way Not at all 09/02/2024 12:36 PM EDT Patience Browning Patient Health Questionnaire -9 Score 0 09/02/2024 12:36 PM EDT Patience Browning * If you checked off any problems on this questionnaire so far, Question Answer Date of Assessment Author How difficult have these problems made it for you to do your work, take care of things at home, or get along with other people? Not difficult at all 09/02/2024 12:36 PM EDT Patience Browning documented as of this encounter Miscellaneous Notes * Progress Notes - Nadine Key, EMANI - 09/02/2024 12:50 PM EDT Images from the original note were not included. Demarcus Martin is a 54 y.o. male Chief complaint: here for follow up of pain in unspecified joint Subjective HPI Demarcus Martin is a 54 y.o. male with PMH significant for anxiety, venous insufficiency, chronic low back pain, HTN, lesion of bone, who presents today for follow up of pain in unspecified joint Past history: 05/30/24: The patient presents to the clinic for evaluation of joint pain. The patient reports that he has a rare kidney disease called brown tumor 2022, where it is taking vitamins out of his bone and the bone are pinching all his nerve. He reports that his family also has his disease. He reports the veins are narrowing in his bones. He reports he is easily bruising in his feet. The patient reports chronic low back pain. The patient will be seeing the Brown Tumor specialist for this 06/10/24. The patient also has tremors. The patient reports that his hands, wrists , knees and ankles will become painful, swollen and stiff since 2019. The patient has attempted Ibuprofen, which helped some. Thepatient reports he took prednisone, which in the beginning he noticed a change, but towards the endit did not help. Joints: Bilateral hands, wrists, knees and ankles pain, stiffness and swelling. Morning stiffness present 2-3 hours. Activity makes the pain better and sometimes worse. Rheumatological ROS positive for dry mouth, Brown tumor disease, macroscopic hematuria one time 2017, Rest ROS negative for dry eyes, oral ulcers, nasal ulcers, alopecia, serositis, psoriasis, rash, photosensitivity, Raynaud's symptoms or digit ulcerations, macroscopic hematuria, psychosis or delirium, thyroid disease, seizures, IBD, uveitis or episcleritis, blood clots Family History: Mom -SJS Social History: No known exposure to HCV or HIV. No hx IV drug use. Hx of 1 PPD x 36 years tobacco use. No hx of alcohol abuse. No hx of TB. Occupation: Factory works, electric truck driver Rheum medication hx: None Last visit: Initial visit Interim history: Today (09/02/24): The patient presents to the clinic for follow up of joint pain. The patient reports that he does not have a brown tumor, but possibly a fatty lesion, which they will watch. 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 HE was prescribed propanolol, which has seemed to help. The patient reports that his hands hands, right foot hips and knees are swelling. Bilateral hands, wrists, knees pain, stiffness and swelling. The patientreports that the weather affects him. The patient has received a steroid taper from his PCP. Review of Systems Musculoskeletal: Positive for arthralgias, back pain, joint swelling, neck pain and neck stiffness. All other systems reviewed and are negative. The following portions of the chart were reviewed this encounter and updated as appropriate: Past Medical History[1] Surgical History[2] Social History Socioeconomic History Marital status: Spouse name: Not on file Number of children: Not on file Years of education: Not on file Highest education level: Not on file Occupational History Not on file Tobacco Use Smoking status: Every Day Current packs/day: 1.00 Average packs/day: 1 pack/day for 15.0 years (15.0 ttl pk-yrs) Types: Cigarettes Smokeless tobacco: Never Substance and Sexual Activity Alcohol use: Never Drug use: Never Sexual activity: Yes Partners: Female control/protection: None Other Topics Concern Not on file Social History Narrative Not on file Social Drivers of Health Financial Resource Strain: Not on file Food Insecurity: Not on file Transportation Needs: Not on file Physical Activity: Not on file Stress: Not on file Social Connections: Not on file Intimate Partner Violence: Not on file Housing Stability: Not on file Family History[3] Allergies[4] Current Medications[5] Objective Last visit labs: Consult on 06/11/2024 Component Date Value Ref Range Status Calcium, Urine 06/11/2024 17.6 mg/dL Final Creatinine, Urine 06/11/2024 164 mg/dL Final Phosphorus, Urine 06/11/2024 59.6 mg/dL Final Vitals: 09/02/24 1228 BP: (!) 143/84 Pulse: 56 Resp: 16 Temp: 36.7 ??C (98 ??F) SpO2: 97% Physical Exam Constitutional: Appearance: Normal appearance. HENT: Head: Normocephalic and atraumatic. Eyes: Conjunctiva/sclera: Conjunctivae normal. Cardiovascular: Rate and Rhythm: Normal rate and regular rhythm. Heart sounds: Normal heart sounds. Pulmonary: Effort: Pulmonary effort is normal. Breath sounds: Normal breath sounds. Musculoskeletal: General: Tenderness present. Comments: See Homunculus. No allodynia present.Tenderness noted in right elbow, bilateral CMC, left2/3 PIP and right 2nd PIP. No synovitis or dactylitis noted on PE. Full ROM noted on PE today. Skin: General: Skin is warm and dry. Neurological: Mental Status: He is alert and oriented to person, place, and time. Psychiatric: Mood and Affect: Mood normal. Behavior: Behavior normal. Thought Content: Thought content normal. Judgment: Judgment normal. Joint Exam 09/02/2024 Right Left Elbow Tender CMC Tender Tender PIP 2 (finger) Tender Tender PIP 3 (finger) Tender 05/30/2024 09/02/2024 WAY-28 (ESR) -- -- WAY-28 (CRP) -- -- Tender (WAY-28) 16 Swollen (WAY-28) 0 0 Provider Global -- -- Patient Global -- -- ESR -- -- CRP -- -- Swollen Joint Count: Swollen: 0 Tender Joint Count: Tender: 6 Patient global assessment: 6.5 /10 Rapid 3 score: 19.7/30 CDAI: Pt reports % improvement while on current medication Assessment/Plan Diagnosis Plan 1. Arthralgia, unspecified joint predniSONE (Deltasone) 5 MG tablet 1.Polyarthralgia -RF-, CCP-, ESR-, CRP 12 The patient reports that his hands, wrists , knees and ankles will become painful, swollen and stiff since 2019. The patient has attempted Ibuprofen, which helped some. The patient reports he took prednisone, which in the beginning he noticed a change, but towards the end it did not help. -Tenderness noted in right elbow, bilateral CMC, left 2/3 PIP and right 2nd PIP. No synovitis or dactylitis noted on PE. Full ROM noted on PE today. -bilateral hands, wrists and knee xrays-No acute osseous finding or erosive change in the bilateralknees, hands or wrists. Mild degenerative changes of the hands and wrists as described above. -Rx prednisone taper, if >50% will start HCQ 2.Chronic back Pain -Patient reports history of deteriorating discs in cervical and lumbar spine, with neurosurgery wanting to do surgery 3.Brown Tumor Disease The patient reports that he has a rare kidney disease called brown tumor 2022, where it is taking vitamins out of his bone and the bone are pinching all his nerve. He reports that his family also hashis disease. He reports the veins are narrowing in his bones. He reports he is easily bruising in his feet. The patient reports chronic low back pain. The patient will be seeing the Brown Tumor specialist for this 06/10/24. 4.High Risk Medication Use -TB Quant negative 06/09/24 -HBV negative 06/09/24 -HCV not done -Rx CBC, Crea, hepatic panel (reviewed 06/18/24 from 06/09/24-safe to start medication at this time) RTC PRN pending prednisone taper Today, I personally spent 39 minutes on the encounter, including chart review, patient education, counseling, and coordination of care as described above. Issues discussed: Diagnosis and implicationson future health, effects and side effects of present and future potential medications, test results as well as further testing and medications required as applicable. ADDENDUM: -bilateral hands, wrists and knee xrays-No acute osseous finding or erosive change in the bilateralknees, hands or wrists. Mild degenerative changes of the hands and wrists as described above. -RF-, CCP-, ESR-, TB, HBV, CBC, Crea, hepatic panel negative CRP 12 The patient was counseled about diagnostic results, instruction for management, risk factors reduction, prognosis, compliance with visits and treatment, risks and benefits of treatments options. Prior notes (by external physicians) and results were reviewed by me with independent interpretation of labs and imaging. My note will be sent to PCP and other consulting physicians. [1] Past Medical History: Diagnosis Date Chronic kidney disease Hypertension 05/2023 Low back pain Sciatica Spinal stenosis [2] No past surgical history on file. [3] Family History Problem Relation Name Age of Onset Autoimmune disease Mother Nevin [4] No Known Allergies [5] Current Outpatient Medications Medication Sig Dispense Refill ALPRAZolam (Xanax) 0.25 MG tablet TAKE ONE (1) TABLET TWICE A DAY BY ORAL ROUTE NEEDED FOR THREE(3) DAYS. (Patient taking differently: Take 1 tablet by mouth at night as needed.) buPROPion (Wellbutrin) 75 MG tablet TAKE ONE (1) TABLET BY MOUTH DAILY FOR TWO (2) WEEKS THEN INCREASE TO ONE (1) TABLET TWICE DAILY FOR TWO (2) WEEKS (Patient taking differently: Take 1 tablet by mouth 2 times a day.) lisinopril 5 MG tablet take one (1) tablet every day by oral route. (Patient taking differently: Take 1 tablet by mouth daily.) naproxen (Naprosyn) 375 MG tablet Take 1 tablet by mouth 2 times a day. propranolol (Inderal) 10 MG tablet TAKE ONE (1) TABLET BY MOUTH EVERY 12 HOURS FOR 14 DAYS, THEN TWO (2) TABLETS EVERY 12 HOURS FOR 30 DAYS. predniSONE (Deltasone) 5 MG tablet Take 3 tablets for 5 days, then take 2 tablets for 5 days, then take 1 tablet for 5 days. 30 tablet 0 No current facility-administered medications for this visit. documented in this encounter Plan of Treatment Upcoming Encounters Date Type Department Care Team (Late st Contact Info) Description 08/26/2025 11:40 AM EDT Office Visit [facility] [address] , [address] [place] [address] Malia Metz MD [address] [place] [address] documented as of this encounter Visit Diagnoses Diagnosis Arthralgia, unspecified joint- Primary documented in this encounter Additional Health Concerns Assessment Noted Time PHQ-9 Depression Total Score: 0 09/03/19 25 12:36 PM EDT A fall risk assessment has been complete d for the patient 09/02/2024 12:36 PM EDT A Body Mass Index follow-up plan has been documented for the patient 09/02/2024 1:30 PM EDT documented as of this encounter Care Teams [employer] Relationship Specialty Start Date End Date Kristina Wright APRN [address] [place] [address] PCP - General 01/07/24 documented as of this encounter
--- OUTSIDE RECORDS SUMMARY | 2024-10-07 11:25 | XMS_ITS | Continuity of Care Document ---
Author Organization [facility] Address [address] [place] [address] Care Team Providers Care Dermatologist Managing Partner Name Role Phone TAY WRIGHT Primary Care Provider Assessment No assessment recorded. Plan of Treatment Reminders Order Date Submit Date Provider Last Modified By Organization Details Last Modified Time Details Appointments None recorded. Lab None recorded. Referral neurologist referral 2024 [facility], [address], [address], 5 13:41:07 Procedures None recorded. Surgeries None recorded. Imaging None recorded. Medication Orders None recorded. Patient TargetsNo targets recorded. Patient InstructionsNo instructions recorded. Reason for Referral Neurologist Referral for Fun ctional movement disorder Referring Physician: Tay Wright, Family Medicine, Encounter Date: 09/30/2024 Problems Name Problem SNOMED Code Status Onset Date Resolution Date Notes Provider Name and Address Organization Details Recorded Time Hypertensi ve disorder 13018525 [facility] 13:33:52 Pain of right hip joint 7250886001238 02 Active 2022 Tay Wright, [employer] [address], [place], [address] , [facility] 5 13:17:14 Imaging of musculoske letal system abnormal 863198257 Active 2022 Freedom Amin, [employer] [address], [place], [address] , [facility] - [facility] 3 14:09:59 Venous insufficie ncy of leg 091914048 Active 2022 Anthonyedwardstefani Lombardishamekakimberly, [employer] [address], [place], [address] , [place] - [facility] 5 13:17:21 Chronic low back pain 694856980 Active 2022 Anthonyedwardstefani Lombardishamekakimberly, [employer] [address], [place], [address] , [place] - [facility] 5 13:17:08 Acute otitis externa of left ear 3868599032990 108 Active 2022 Freedom Amin, [employer] [address], [place], [address] , [place] - [facility] 3 14:36:40 Lesion of bone 098761128 Active 2022 Anthonytyrone bettye [employer] [address], [place], [address] , [place] - [facility] 5 13:17:11 Anxiety 41087355 Active 2024 Anthonytyrone shamekakimberly, [employer] [address], [place], [address] , [place] - [facility] 5 13:17:03 Functional movement disorder 899315551 Active 2024 Anthonyedwardstefani Lombardishamekakimberly, [employer] [address], [place], [address] , [place] - [facility] 5 16:36:11 Problem Notes None recorded. Procedures Surgical History Date Name Laterality Status Provider Name and Address Organization Details Recorded Time 12/14/19 24 Medication Reconcilliation completed Anamaria Benitez [place] - [facility] 12/14/2023 09:30:53 02/21/20 23 Splint Application completed Tay Wright APRN [address], [place], [address], [place] - [facility] 02/20/2023 15:07:09 02/21/20 23 Medication Reconcilliation completed Anamaria Benitez [place] - [facility] 02/20/2023 14:30:20 Explore scrotum completed Anamaria Benitez [place] - [facility] 12/02/2021 13:35:15 Imaging Results None recorded. Procedure Notes None recorded. Medical Equipment None Reported. Allergies No known drug allergies Medications Name Sig Start Date Stop Date Status Note LastModified by Organization Details LastModified Time terbinafine HCl 1 % topical cream APPLY TO THE AFFECTED AND SURROUNDI NG AREAS OF SKIN BY TOPICAL ROUTE ONCE DAILY 09/30 completed Not Available Not Available Not Available prednisone 10 mg tablet TAKE ONE (1) TABLET TWICE A DAY BY ORAL ROUTE FOR FIVE (5) DAYS. 07/11 completed Not Available Not Available Not Available doxycycline hyclate 100 mg capsule 04/19 completed Not Available Not Available Not Available naproxen 375 mg tablet TAKE ONE (1) TABLET BY MOUTH TWICE DAILY 09/30 completed Not Available Not Available Not Available azithromyci n 250 mg tablet TAKE TWO (2) TABLETS (500 MG) BY ORAL ROUTE ONCE DAILY FOR ONE (1) DAY THEN ONE (1) TABLET (250 MG) BY ORAL ROUTE ONCE DAILY FOR FOUR (4) DAYS 07/12 completed Not Available Not Available Not Available ibuprofen 800 mg tablet TAKE 1 TABLET BY MOUTH EVERY EIGHT (8) HOURS 10/15 completed Not Available Not Available Not Available prednisone 20 mg tablet TAKE ONE (1) TABLET TWICE A DAY BY ORAL ROUTE FOR FIVE (5) DAYS. 10/15 completed Not Available Not Available Not Available prednisone 5 mg tablet TAKE THREE (3) TABLETS BY MOUTH FOR FIVE (5) DAYS, THEN TAKE TWO (2) TABLETS FOR FIVE (5) DAYS, THEN TAKE ONE (1) TABLET FOR FIVE (5) DAYS. 09/30 completed Not Available Not Available Not Available amoxicillin 500 mg tablet Take 1 tablet every day by oral route for 10 days. 01/12 completed Not Available Not Available Not Available meloxicam 7.5 mg tablet Take 1 tablet every day by oral route as needed, for arhtritis . 10/15 completed Not Available Not Available Not Available propranolol 10 mg tablet TAKE TWO (2) TABLETS BY MOUTH EVERY 12 HOURS active Not Available Not Available No t Available alprazolam 0.25 mg tablet TAKE ONE (1) TABLET BY MOUTH TWICE DAILY NEEDED 09/30 completed Not Available Not Available Not Available famotidine 20 mg tablet TAKE ONE (1) TABLET EVERY DAY BY ORAL ROUTE. 05/02 completed Not Available Not Available Not Available prednisone 50 mg tablet TAKE 1 TABLET BY MOUTH EVERY DAY FOR 5 DAYS 05/02 completed Not Available Not Available Not Available bupropion HCl 75 mg tablet TAKE ONE (1) TABLET TWICE A DAY BY ORAL ROUTE DIRECTED FOR 30 DAYS. active Not Available Not Available No t Available omeprazole 20 mg capsule,del ayed release Take 1 capsule every day by oral route. 10/15 completed Not Available Not Available Not Available lisinopril 5 mg tablet TAKE ONE (1) TABLET EVERY DAY BY ORAL ROUTE. active Not Available Not Available No t Available methylpredn isolone 4 mg tablets in a dose pack TAKE BY MOUTH DIRECTED ON INSIDE OF PACKAGE 11/03 completed Not Available Not Available Not Available albuterol sulfate HFA 90 mcg/actuati on aerosol inhaler INHALE ONE (1) PUFF EVERY FOUR (4) HOURS NEEDED FOR WHEEZING 34 DAY SUPPLY active Not Available Not Available No t Available cefdinir 300 mg capsule TAKE ONE (1) CAPSULE EVERY 12 HOURS BY ORAL ROUTE FOR 10 DAYS. 10/15 completed Not Available Not Available Not Available fluticasone propionate 50 mcg/actuati on nasal spray,suspe nsion SPRAY ONE (1) SPRAY EVERY DAY BY INTRANASA L ROUTE. 10/15 completed Not Available Not Available Not Available loratadine 10 mg tablet TAKE ONE (1) TABLET EVERY DAY BY ORAL ROUTE. 10/15 completed Not Available Not Available Not Available neomycin-po lymyxin-hyd rocort 3.5 mg-10,000 unit/mL-1 % ear drops,susp INSTILL 4 DROPS INTO AFFECTED EAR(S) INTO AFFECTED EAR(S) THREE TIMES DAILY 11/03 completed Not Available Not Available Not Available diclofenac 1 % topical gel APPLY TWO (2) GRAMS TO THE AFFECTED AREA(S) BY TOPICAL ROUTE THREE (3) TIMES PER DAY 11/03 completed Not Available Not Available Not Available Vitals Date Recorded Body height Body mass index (BMI) Body weight Heart rate Oxygen saturation Oxygen saturation in Arterial blood by Pulse oximetry Respiratory rate Systolic And Diastolic Provider Name and Address Organization Details Last Updated DateTime 5 187.96 cm 29.4 kg/m2 985335. 65 g 75 /min 96 % 96 % 18 /min 144/88 mm[Hg] Anamaria Benitez [place] - [facility] 15:37:33 Social History Question Answer Notes LastModified by Organizat ion Details LastModified Time Tobacco Smoking Status Current Every Day Smoker Anamaria Olguinmonika hardy, [place] - [facility] 12/02/2021 13:34:35 Do You Have An Advance Directive? No Information not available 04/21/2022 Are You Blind Or Do You Have Difficulty Seeing? Yes Wears Glasses Information not available 04/21/2022 What Is Your Level Of Caffeine Consumption? Moderate Information not available 04/21/2022 How Much Tobacco Do You Chew? None Information not available 06/17/2024 In The 14 Days Before Symptom Onset, Have You Had Close Contact With A Laboratory-confir med COVID-19 While That Case Was Ill? No Information not available 09/14/2022 In The 14 Days Before Symptom Onset, Have You Had Close Contact With A Person Who Is Under Investigation For COVID-19 While That Person Was Ill? No Information not available 09/14/2022 Have You Been To An Area Known To Be High Risk For COVID-19? No Information not available 09/14/2022 Are You Deaf Or Do You Have Serious Difficulty Hearing? No Information not available 04/21/2022 What Type Of Diet Are You Following? REGULAR Information not available 04/21/2022 Have You Processed Blood Or Body Fluids From An Ebola Virus Disease Patient Without Appropriate PPE? No Information not available 09/14/2022 Do You Reside In Or Have You Traveled To An Area Where Ebola Virus Transmission Is Active? No Information not available 09/14/2022 What Is The Highest Grade Or Level Of School You Have Completed Or The Highest Degree You Have Received? [id number] Information not available 06/17/2024 Have There Been Any Changes To Your Family Or Social Situation? No Information no t available 04/21/2022 What Is The Fluoride Status Of Your Home? Unknown Information not available 04/21/2022 Have You Recently Or Are You Planning To Travel To An Area With Zika Virus? No Information not available 09/14/2022 Do You Have A Medical Power Of Border Patrol Agent? No Information not available 04/21/2022 What Was The Date Of Your Most Recent Tobacco Screening? 05/16/2024 Information not available 05/16/2024 How Many Children Do You Have? 4 Information not available 04/21/2022 What Is Your Current Pack Years? 30ormorepack years Information not available 04/21/2022 Do You Use Protection Against STDs? No Information not available 06/17/2024 What Is Your Relationship Status? Information not available 12/02/2021 Do You Use Your Seat Belt Or Car Seat Routinely? Yes Information not available 06/17/2024 Are You Sexually Active? Yes Information not available 06/17/2024 Do You Have Smoke And Carbon Monoxide Detectors In Your Home? Yes Information not available 04/21/2022 At What Age Did You Start Smoking Tobacco? 16 Information not available 12/02/2021 Are You Passively Exposed To Smoke? Yes Information no t available 04/21/2022 How Much Tobacco Do You Smoke? 1 PPD Information not available 12/02/2021 Do You Use Sunscreen Routinely? No Information not available 06/17/2024 Has Tobacco Cessation Counseling Been Provided? Yes Information not available 09/14/2022 On What Date Was Tobacco Cessation Counseling Provided? 05/16/2024 Information not available 05/16/2024 How Many Years Have You Smoked Tobacco? 38 Information not available 08/19/2024 Do You Have Difficulty Walking Or Climbing Stairs? No Information not available 04/21/2022 Sex: Male Functional Status Question Answer Note LastModified by Organizat ion Details LastModified Time How many times per week do you consume alcohol? <1 time per week Information no t available 04/21/2022 Do you or have you ever used smokeless tobacco? Never used smokeless tobacco Information not available 06/17/2024 Are you currently employed? Yes Information not available 04/21/2022 Do you have transportation difficulties? No Information not available 04/21/2022 Are you able to care for yourself? Yes Information n ot available 04/21/2022 Do you have difficulty dressing or bathing? No Information not available 04/21/2022 Do you or have you ever used e-cigarettes or vape? Never used electronic cigarettes Information not available 06/17/2024 What is your exercise level? None Information not available 04/21/2022 Do you use any illicit or recreational drugs? No Information not available 04/21/2022 Do you or have you ever used any other forms of tobacco or nicotine? No Information not available 04/21/2022 What is your level of alcohol consumption? None Information not available 06/17/2024 Are you able to walk? YESWOREST Information not available 04/21/2022 Do you have difficulty doing errands alone? No Information not available 04/21/2022 What is your occupation? [employer] Information not available 06/17/2024 Mental Status Question Answer Note LastModified by Organizat ion Details LastModified Time Do you feel stressed (tense, restless, nervous, or anxious, or unable to sleep at night)? [id number] Information not available 04/21/2022 Do you have difficulty concentrating, remembering or making decisions? No Information no t available 04/21/2022 Family History Relationship Description Onset Age of this Age Resolved Age Notes LastModified by Organization Details LastModified Time Maternal Grandfather Malignant neoplasm of lung bstears Not available 2022 09:04:33 Maternal Aunt Malignant tumor of breast [id number] Not available 2024 13:53:02 Medical History Condition Response Depression Y Anxiety Disorder Y Arthritis Y Hypertension Y Past Encounters Encounter ID Performer Location Encounter Start Date Encounter Closed Date Diagnosis/Indication Diagnosis SNOMED-CT Code Diagnosis ICD10 Code Diagnosis Note [id number] Tay Wright APRN [address] [address] 09/30/2024 15:15:39 09/30/2024 16:25:40 Functional movement disorder 160775191 G25.9 off work until pt completed and mricalled [facility] office to see if they can see him [facility] Concerns Section Related Observation LastModified by Organization Detai ls LastModified Time None Recorded Concern Status LastModified by Organization Details LastModified Time None Recorded Payers Encounter Date Sequence Insurance Name Policy Number Policy Ramos Covered Member ID Ramos Member ID Guarantor Name 09/30/2024 1 [employer]ID[employer]JENNIFER (PPO) [id number] Demarcus Mario [id number] Demarcus Martin 09/30/2024 2 [employer] (MEDICAID REPLACEMENT - HMO) Demarcus Guillaume Mario [id number] Demarcus Martin Notes Date Note Type Note Provider Name and Address Organization Details Recorded Time 09/30/2024 text/html 54 yr old male presents for multiple joint pain and worsening body movements/tremors. pt states his tremors have worsened, pt states at night his body continues to jerk and wakes him from sleep. pt states back pain has increased worse if sitting and then has to stand. pt states he has had a change in bowels and bladder. states he is now constipated and has had a incontinence episode, but not sure if it was because he couldnt get there quick enough or if he lost control. pt states he is wanting to hold his head down due to tremors. states his neurosurgery md as ordered mri but needs PT first. Tay Wright, [employer] [address], [place], [address], [place] - [facility] 09/30/2024 18:24:33
--- OUTSIDE RECORDS SUMMARY | 2024-10-07 11:25 | XMS_ITS | Data Portability ---
Author Organization [facility] Address [address] [place] [address] Care Team Providers Care Arranger Assembler Name Role Phone TAY MAURO Primary Care Provider Assessment Encounter Date Assessment Date Assessment LastModified by Organization Details LastModified Time 09/02/2024 09/02/2024 ASSESSMENT: Mr. Duque is a 54-year-old man that presents to the office for evaluation of right sided low back pain with radiation to his right lower extremity that has been worsening over the last year to year and a half. He is accompanied by his . He reports he has had a history of back issues since he was in his teens, but is was always minimal and intermittent in nature. However, over the last year and a half, he reports the symptoms have gotten worse and are becoming more difficult for him to manage. He is somewhat of a poor historian. 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 He has an appointment with a movement specialist next month. He is reporting right sided low back pain that, when it is severe, will radiate all the way across his waistline to the left side of his low back. This radiates into his right hip and down his anterior thigh to the knee which he reports swells . 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 He does take ibuprofen daily that he reports has helped some with the pain and swelling. He reports some occasional issues with his balance but does not report any dexterity issues. He does feel like he is walking hunched over more. He reports a history of issues with anxiety that he has had for several years and has been somewhat worse as he has gotten older. He denies any bowel or bladder control issues. IMAGING: No new imaging available for review. They did bring a CD with a CT of the head and a CT of the cervical spine from 12/10/2023 completed at [facility] that was returned to them as he wanted to focus on his low back. Nurse practitioner visit PLAN: Lumbar AP, lateral, flexion, extension x-rays Lumbar MRI without contrast Bilateral hip x-rays Follow-up with Dr. Lawler Mr. Duque is going to move forward with updated imaging of his lumbar spine to include x-rays with flexion and extension to evaluate for any instability. We will also get x-rays of his hips bilaterally given the pain he has with internal/externa l rotation of his hips. We will also request a lumbar MRI without contrast to evaluate for any neural impingement that could be causing his back and lower extremity symptoms. He will follow-up with Dr. Lawler to review these results to determine if he would be a candidate for injections or surgical intervention. He verbalized understanding of these instructions and is agreeable to this plan. He has no further questions or concerns at this time. He is satisfied with this plan of care. [email or web address] Not available 09/02/2024 15:21:53 Plan of Treatment Reminders Order Date Submit Date Provider Last Modified By Organization Details Last Modified Time Details Appointments RECHEC Arias arriola 2024 09:45A M DAVID LAWLER MD Not available Not available Not available Lab None record ed. Referral None record ed. Procedures None record ed. Surgeries None record ed. Imaging None record ed. Medication Orders None record ed. Patient TargetsNo targets recorded. Patient InstructionsNo instructions recorded. Reason for Referral None Reported. Results Created Date Observation Date Name Description Value Unit Range Abnormal Flag Note LastModifiedBy Organization Detail LastModifiedTime 09/03/19 25 09/02/2024 XR, hip, bilat eral, 3 or 4 view [facility] [address] [place] [address] Jany anguiano Name: GEMMA anguiano : 970 Jany anguiano 40 Orderi ng Provid er: AME Anguiano EXAM DATE: 2024 EXAM: XR BENNIE HIPS, 3 OR 4 VWS COMPAR ELISA: None. HISTOR Y: Bilate ral hip pain. FINDIN GS: There are minima l degene rative change s in both hips. There is minima l margin al spurri ng. The joint space appear s normal . There are minima l degene rative change s in the SI joints . There is no acute fractu re. IMPRES KAUR: 1. There are minima l degene rative change s in the hips and pelvis . Interp reted By: Nohemy loyd MD Electr onical ly Signed By: Nohemy loyd MD on 09/03/19 3:04 PM INTERFACE [facility] [address] [place], [address], 09/02/2024 15:09:17 09/03/19 25 09/02/2024 XR, lumbo sacra l spine , 4 or more view [facility] [address] [place] [address] Jany anguiano Name: GEMMA anguiano : 970 Jany anguiano 40 Orderi ng Provid er: AME Anguiano EXAM DATE: 2024 EXAM: XR LUMBAR SPINE AP/LAT /FLEX/ EXT CLINIC AL INFORM ATION: Back pain. IMAGES PROVID ED: AP, latera l and coned- down views of the lumbar spine with additi onal latera l views in flexio n and extens ion. COMPAR ELISA: None. FINDIN GS: Verteb ral body height s are normal . Disc spaces are well-m aintai solo. No abnorm ality of alignm ent is seen. No instab ility is seen on flexio n or extens ion. No radiog raphic eviden ce of injury is noted. Mild degene rative endpla te spurri ng is presen t. IMPRES KAUR: Mild DDD. No instab ility. Interp reted By: Barry Mendosa MD Electr on ly Signed By: Barry Mendosa MD on 09/03/19 3:16 PM INTERFACE [facility] [address] [place], [address], 09/02/2024 15:21:27 Result Notes Documentation Provider Name and Address Organization Details Recorded Time Xr, Hip, Bilateral, 3 Or 4 View : [facility] [address] [place] [address] Patient Name: NATASHA DUQUE Patient : 1970 Patient Ordering Provider: AME CASTILLO EXAM DATE: 09/02/2024 EXAM: XR BENNIE HIPS, 3 OR 4 VWS COMPARISON: None. HISTORY: Bilateral hip pain. FINDINGS: There are minimal degenerative changes in both hips. There is minimal marginal spurring. The joint space appears normal. There are minimal degenerative changes in the SI joints. There is no acute fracture. IMPRESSION: 1. There are minimal degenerative changes in the hips and pelvis. Interpreted By: Noah Pandey MD Not Available [facility] 09/02/2024 15:09: 17 Xr, Lumbosacral Spine, 4 Or More View : [facility] [address] [place] [address] Patient Name: NATASHA DUQUE Patient : 1970 Patient Ordering Provider: AME CASTILLO EXAM DATE: 09/02/2024 EXAM: XR LUMBAR SPINE AP/LAT/FLEX/EXT CLINICAL INFORMATION: Back pain. IMAGES PROVIDED: AP, lateral and coned-down views of the lumbar spine with additional lateral views in flexion and extension. COMPARISON: None. FINDINGS: Vertebral body heights are normal. Disc spaces are well-maintained. No abnormality of alignment is seen. No instability is seen on flexion or extension. No radiographic evidence of injury is noted. Mild degenerative endplate spurring is present. IMPRESSION: Mild DDD. No instability. Interpreted By: Barry Mendosa MD Not Available [facility] 09/02/2024 15:21:27 Medical Equipment None Reported. Allergies No known drug allergies Medications Name Sig Start Date Stop Date Status Note LastModified by Organization Details LastModified Time famotidine active Not Available Not Av ailable Not Available naproxen active Not Available Not Avai lable Not Available lisinopril active Not Available Not Av ailable Not Available buprenorphine active Not Available Not Available Not Available Motrin Arthritis Pain active Not Available Not Availab le Not Available Vitals None Recorded Social History None recorded. Functional Status None recorded. Mental Status None recorded. Family History Relationship Description Onset Age of this Age Resolved Age Notes LastModified by Organization Details LastModified Time Father No current problems or disability [email or web address] Not available 0 09/02/2024 14:07:19 Mother No current problems or disability [email or web address] Not available 0 09/02/2024 14:07:19 Medical History Condition Response TENS Unit for current problem N Massage Therapy for current problem N Traction for current problem N Other N Gout N Neuro-modulating Drugs for current probl em N Hyperthyroidism N Narcotic Pain Medication for current pro blem N Emphysema N Black Lung N Steroid Pack for current problem N Hypothyroidism N NSAID Use Y COPD N Injections for current problem N Osteoporosis/Osteopenia N Heart Attack ([place]) N Deep Vein Thrombosis N Mental Illness N Diabetes N Bleeding Disorder N Arthritis Y Tuberculosis N Genetic Disorder N AIDS/HIV N Chiropractor treatment for current probl em N Kidney Failure N Cancer N Stroke N Ultrasound Treatment for current problem N Asthma Y Epilepsy/Seizures N Sleep Apnea N Thyroid Disorder N High Cholesterol Y Physical Therapy Treatments for current problem N Liver Disease N Pulmonary Embolism N Fibromyalgia N Dialysis N Hypertension Y Kidney Disease N Past Encounters Encounter ID Performer Location Encounter Start Date Encounter Closed Date Diagnosis/Indication Diagnosis SNOMED-CT Code Diagnosis ICD10 Code Diagnosis Note [id number] AME CASTILLO, CERTIFIED HOME HEALTH AIDE [facility] [address] [place] [address] 09/02/2024 13:49:51 09/03/2024 04:29:53 Lumbar radiculopathy 269317735 M54.16 Lumbar spondylosis 81807 0009 M47.816 Pain of hip region 58148 002 M25.551 M25.552 Health Concerns Section Related Observation LastModified by Organization Detai ls LastModified Time None Recorded Concern Status LastModified by Organization Details LastModified Time None Recorded Advance Directives Directive None Recorded Payers Insurance Date Sequence Insurance Name Policy Number Policy Ramos Covered Member ID Ramos Member ID Guarantor Name 08/31/2024 1 [place] [id number] Natasha Duque [id number] Natasha Duque 08/31/2024 2 PASSPORT BY [employer] (MEDICAID REPLACEMENT - HMO) Natasha Duque [id number] Natasha Duque Notes Date Note Type Note Provider Name and Address Organization Details Recorded Time 09/02/2024 text/html Mr. Duque is a 54-year-old man that presents to the office for evaluation of right sided low back pain with radiation to his right lower extremity that has been worsening over the last year to year and a half. AME CASTILLO, CERTIFIED HOME HEALTH AIDE [address] [place], [address], [facility] 09/02/2024 15:22:37
--- OUTSIDE RECORDS SUMMARY | 2024-10-07 11:25 | XMS_ITS | Continuity of Care Document ---
Author Organization [facility], NEUROSURGERY [address] [place] [address] Care Team Providers Care Living Manager Name Role Phone TAY MAURO Primary Care Provider [phone] Assessment Encounter Date Assessment Date Assessment LastModified [...] the cervical spine from 12/10/2023 completed at [facility] that was returned to them as he [...] is satisfied with this plan of care. [email or web address] Not available 09/02/2024 15:21:53 Plan of Treatment Reminders Order Date Submit Date Provider Last Modified By Organization Details Last Modified Time Details Appointments RECHEC Arias arriola 2024 09:45A Sultana LAWLER MD Not available Not available Not available Lab None record ed. Referral None record ed. Procedures None record ed. Surgeries None record ed. Imaging None record ed. Medication Orders None record ed. Patient TargetsNo targets recorded. Patient InstructionsNo instructions recorded. Reason for Referral None Reported. Results Created Date Observation Date Name Description Value Unit Range Abnormal Flag Note LastModifiedBy Organization Detail LastModifiedTime 09/03/1909/02/2024 XR, hip, bilat eral, 3 or 4 view [facility] [address] [facility] [place] [address] Jany anguiano Name: GEMMA anguiano : 970 [...] loyd MD on 09/03/19 3:04 PM INTERFACE [facility] [address] [place], [address], 09/02/2024 15:09:17 09/03/19 25 09/02/2024 XR, lumbo sacra l spine , 4 or more view [facility] [address] [place] [address] [phone] Jany anguiano Name: GEMMA anguiano : 970 [...] Interp reted By: Barry Mendosa MD Electr onical ly Signed By: Barry Mendosa MD on 09/03/19 3:16 PM INTERFACE [facility] [address] [place], [address], 09/02/2024 15:21:27 Result Notes Documentation Provider Name and Address Organization Details Recorded Time Xr, Hip, Bilateral, 3 Or 4 View : [facility] [address] [place] [id number] Patient Name: NATASHA DUQUE Patient : 1970 [...] Interpreted By: Noah Pandey MD Not Available [facility] 09/02/2024 15:09: 17 Xr, Lumbosacral Spine, 4 Or More View : [facility] [address] [place] [address] Patient Name: NATASHA DUQUE Patient : 1970 [...] Interpreted By: Barry Mendosa MD Not Available [facility] 09/02/2024 15:21:27 Medical Equipment None Reported. Allergies [...] Response TENS Unit for current problem N Traction for current problem N Massage Therapy for current problem N Other N Gout N Neuro-modulating Drugs for current probl em N Hyperthyroidism N Emphysema N Narcotic Pain Medication for current pro blem N Black Lung N Steroid Pack for current problem N NSAID Use Y Hypothyroidism N COPD N Injections for current problem N Osteoporosis/Osteopenia N Heart Attack ([place]) N Deep Vein Thrombosis N Mental Illness N Diabetes N Bleeding Disorder N Arthritis Y Tuberculosis N Genetic Disorder N AIDS/HIV N Chiropractor treatment for current probl em N Kidney Failure N Cancer N Stroke N Asthma Y Ultrasound Treatment for current problem N Epilepsy/Seizures N Sleep Apnea N Thyroid Disorder N High Cholesterol Y Physical Therapy Treatments for current problem N Liver Disease N Pulmonary Embolism N Fibromyalgia N Dialysis N Hypertension Y Kidney Disease N Past Encounters Encounter ID Performer Location Encounter Start Date Encounter Closed Date Diagnosis/Indication Diagnosis SNOMED-CT Code Diagnosis ICD10 Code Diagnosis Note [id number] AME CASTILLO APRN [facility] [address] [place] [address] 09/02/2024 13:49:51 09/03/2024 04:29:53 Lumbar radiculopathy 046066945 M54.16 Lumbar spondylosis 72558 0009 M47.816 Pain of hip region 17205 002 M25.551 M25.552 Health Concerns Section Related Observation LastModified by Organization Detai ls LastModified Time None Recorded Concern Status LastModified by Organization Details LastModified Time None Recorded Payers Encounter Date Sequence Insurance Name Policy Number Policy Ramos Covered Member ID Ramos Member ID Guarantor Name 09/02/2024 1 [place] [id number] 3 Natasha Duque [id number] Natasha Duque 09/02/2024 2 PASSPORT BY [employer] (MEDICAID REPLACEMENT - HMO) Natasha Duque [id number] Natasha Duque Notes Date Note Type Note Provider Name and Address Organization Details Recorded Time 09/02/2024 text/html Mr. Duque is a 54-year-old man that presents to the office for evaluation of right sided low back pain with radiation to his right lower extremity that has been worsening over the last year to year and a half. AME CASTILLO, FOUNTAIN WORKER [address] [place], [address], [facility] 09/02/2024 15:22:37
--- OUTSIDE RECORDS SUMMARY | 2024-10-07 11:25 | XMS_ITS | Continuity of Care Document ---
Author Organization [facility] Address [address] [place] [address] Care Team Providers Care Ranch Supervisor Name Role Phone TAY WRIGHT Primary Care Provider [phone] Assessment No assessment recorded. Plan of Treatment Reminders Order Date Submit Date Provider Last Modified By Organization Details Last Modified Time Details Appointments None recorded. Lab None recorded. Referral rheumatolog ist referral 2024 025 [facility], [address] [place] [address], [address], 09:08:55 Procedures None recorded. Surgeries None recorded. Imaging None recorded. Medication Orders albuterol sulfate HFA 90 mcg/actuati on aerosol inhaler [address], [address], 16:48:58 Patient TargetsNo targets recorded. Patient InstructionsNo instructions recorded. Reason for Referral Orthotic Finish Grinding Technician Referral for Pain of multiple joints Referring Physician: Tay Wright, Family Medicine, Encounter Date: 08/14/2024 Problems Name Problem SNOMED Code Status Onset Date Resolution Date Notes Provider Name and Address Organization Details Recorded Time Hypertensi ve disorder 94141068 Active Anamaria hardy [facility] 2 13:33:52 Pain of right hip joint 5585092648109 02 Active 2022 Tay Wright, EMANI [facility] [address], [place], [address] , [place] - [facility] 5 13:17:14 Imaging of musculoske letal system abnormal 244499147 Active 2022 Freedom Amin APRN [address], [place], [address] , [place] - [facility] 3 14:09:59 Venous insufficie ncy of leg 521968431 Active 2022 Tay Wright APRN [address], [place], [address] , [place] - [facility] 5 13:17:21 Chronic low back pain 867483025 Active 2022 Tay Wright APRN [address], [place], [address] , [place] - [facility] 5 13:17:08 Acute otitis externa of left ear 3774089161226 108 Active 2022 Freedom Amin APRN [address], [place], [address] , [place] - [facility] 3 14:36:40 Lesion of bone 015111447 Active 2022 Tay Wright APRN [address], [place], [address] , [place] - [facility] 5 13:17:11 Anxiety 74668298 Active 2024 Tay Wright APRN [address], [place], [address] , [place] - [facility] 5 13:17:03 Functional movement disorder 141681925 Active 2024 Tay Wright APRN [address], [place], [address] , [place] - [facility] 5 16:36:11 Problem Notes None recorded. Procedures Surgical History Date Name Laterality Status Provider Name and Address Organization Details Recorded Time 12/14/19 24 Medication Reconcilliation completed Anamaria Benitez [place] - [facility] 12/14/2023 09:30:53 02/21/20 23 Splint Application completed Tay Wright APRN [address], [place], [address], [place] - [facility] 02/20/2023 15:07:09 02/21/20 23 [...] Arterial blood by Pulse oximetry Respiratory rate Body temperature Systolic And Diastolic Provider Name and Address Organization Details Last Updated DateTime 5 187.96 cm 30.2 kg/m2 386242. 21 g 80 /min 98 % 98 % 18 /min 98 [degF] 146/84 mm[Hg] Simona Roland [place] - [facility] 5 16:13:13 Social History Question Answer Notes LastModified by Organizat ion Details LastModified Time Tobacco Smoking Status Current Every Day Smoker Anamaria Benitez [place], [place] - [facility] 12/02/2021 13:34:35 Do You [...] Or The Highest Degree You Have Received? [id number] Information not available 06/17/2024 Have There Been Any Changes To Your Family Or Social Situation? No Information no t available 04/21/2022 What Is The Fluoride Status Of Your Home? Unknown Information not available 04/21/2022 Have You Recently Or Are You Planning To Travel To An Area With Zika Virus? No Information not available 09/14/2022 Do You Have A Medical Power Of University Relations Director? No Information not available 04/21/2022 What Was [...] anxious, or unable to sleep at night)? [id number] Information not available 04/21/2022 Do you have [...] SNOMED-CT Code Diagnosis ICD10 Code Diagnosis Note [id number] Eugonda Fryman, [address] [address] 07/21/2024 14:56:30 07/21/2024 15:51:20 Pain of hip region 44895513 M25.552 call ra richardson for appointmen t asapif symptoms worsen or no improvemen t return or go to [facility] all follow up appointmen ts [id number] Lukestefani Wright [address] [address] 08/07/2024 15:10:48 08/07/2024 16:29:22 Lesion of bone 866391628 M89.9 follow up with mdcopy of all labs given to pt Anxiety 00252399 F41.9 Pt compliant with plan of careFran reviewedme dication compliance discussedL ast uds: 5Control substance agreement on file Low back pain 884999133 M54.50 [id number] Anthonytyrone bettye [address] [address] 08/14/2024 15:53:23 08/14/2024 16:31:34 Acute bronchitis 74002199 J20.9 encouraged to stop smokingret urn if any worsening of symptoms Pain of mu ltiple joints 41303296 M25.50 if worsen or no improvemen t returnfoll ow up with ra richardson- as scheduled Functional movement disorder 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 G25.9 ok to return to trial of work Health Concerns Section Related Observation LastModified by Organization Detai ls LastModified Time None Recorded Concern Status LastModified by Organization Details LastModified Time None Recorded Payers Encounter Date Sequence Insurance Name Policy Number Policy Ramos Covered Member ID Ramos Member ID Guarantor Name 08/14/2024 1 [employer] [id number] Demarcus Martin [id number] Demarcus Martin 08/14/2024 2 PASSPORT BY [employer] (MEDICAID REPLACEMENT - HMO) Demarcus Martin [id number] Demarcus Martin Notes Date Note Type Note Provider Name and Address Organization Details Recorded Time 08/14/2024 text/html 54 year old male who presents to the office today with concerns ofcough when waking up in the morning and wheezing in chest when laying downpt states he is doing much better and would like to return to work 08/23/24.[facility] a [facility] SMOKE CHASER [address], [place], [address], [facility] - [facility] 08/14/2024 16:50:13
--- OUTSIDE RECORDS SUMMARY | 2024-10-07 11:26 | XMS_ITS | Clinical Summary ---
Author Organization [facility] Address [address] [place] [address] Care Team Providers Care Segmental Paver Installer Name Role Phone Other, Physician Georgiana REYES Primary Care Provi gael Unavailable Allergies No known active allergies Medications buPROPion (WELLBUTRIN) 75 MG TABS Take 75 mg by mouth as needed. Active lisinopril (PRINIVIL,ZESTR IL) 5 mg TABS Take 5 mg by mouth daily. Active ALPRAZolam (XANAX) 0.25 MG TABS Take 0.25 mg by mouth 2 (two) times daily as needed. Active terbinafine (LAMISIL) 1 % CREA Apply 1 Application topically daily. Active Active Problems Problem Noted Date Diagnosed Date Anxiety 07/22/2024 Venous insufficiency 07/22/2024 Chronic low back pain 07/22/2024 Pain in joint of right hip 07/22/2024 Hypertensive disorder 07/22/2024 Tinea pedis of both feet 07/22/2024 Resolved Problems Problem Noted Date Diagnosed Date Resolved Date Acute contact otitis externa of left ear 07/22/2024 07/22/2024 Encounters Date Type Department Care Team Description 07/22/2024 Abstract [facility] V[facility] [address] [place] [address] Finesse Eagle MD Anxiety (Primary Dx); Acute contact otitis externa of left ear; Venous insufficiency; Pain in joint of right hip; Tinea pedis of both feet 07/11/[address] [facility] [address] [place] [address] Finesse Eagle MD from Last 3 Months Social History Tobacco Use Types Packs/Day Years Used Date Smoking Tobacco: Every Day Cigarettes Smokeless Tobacco: Never Tobacco Cessation:Ready to Q uit: Not Asked; Counseling Given: Not Answered Alcohol Use Standard Drinks/Week Comments Yes 0 (1 standard drink = 0.6 oz pur e alcohol) less than 1 time per week Sex and Gender Information Value Date Recorded Sex Assigned at Not on file Legal Sex Male 3:42 PM EDT Gender Identity Not on file Sexual Orientation Not on file Last Filed Vital Signs Vital Sign Reading Time Taken Comments Blood Pressure - - Pulse - - Temperature - - Respiratory Rate - - Oxygen Saturation - - Inhaled Oxygen Concentration - - Weight 103.9 kg (229 lb) 07/22/2024 3:10 PM EDT Height 188 cm (6' 2 ) 07/22/2024 3:10 PM EDT Body Mass Index 29.4 07/22/2024 3:10 PM EDT Plan of Treatment Health Maintenance Due Date Last Done Comments DTap,Tdap,and Td (1 - Tdap) 1980 Pneumococcal 50+ (1 of 2 - PCV) 1988 Colonoscopy 2014 PSA YEARLY 2019 Shingrix (#1) 2019 Influenza Vaccine (#1) 2024 RSV Vaccine (60+ or ) (1 - 1-dose 75+ series) 2044 HPV Aged Out No longer eligi ble based on patient's age to complete this topic Meningococcal conjugate jordana nt 4 (MCV4) Aged Out No longer eligible b ased on patient's age to complete this topic RSV Immunization (<20 months) Aged Out No longer eligible based on patient's age to complete this topic Insurance [facility] NOT MEDICARE Care Teams Segmental Paver Installer Relationship Specialty Start Date End Date Other, Physician MD Georgiana Other PCP - General Internal Medicine 07/11/24
--- OUTSIDE RECORDS SUMMARY | 2024-10-07 11:26 | XMS_ITS | Encounter Summary ---
Author Organization [facility] Address [address] [place] [address] Care Team Providers Care Environmental Property Assessor Name Role Phone Anthony Wrightedwardstefani Ryanne JOAQUIN Primary Care Provider +1- [phone] Reason for Visit * Reason Onset Date Comments HCN - Patient Message 08/05/2024 Encounter Details Date Type Department Care Team ([facility] st Contact Info) Description 08/05/2024 Telephone [facility] [address], [address] [place] [address] Malia Metz MD [address] [place] [address] HCN - Patient Message Social History Tobacco Use Types Packs/Day Years Used Date Smoking Tobacco: Every Day Cigarettes 1 15 Smokeless Tobacco: Never Alcohol Use Standard Drinks/Week Comments Never 0 [...] on file documented as of this encounter Functional Status * Over the [...] television Not at all 09/02/2024 12:36 PM EDPatience Yin Moving or speaking so slowly that other people could have noticed? Or the opposite - being so fidgety or restless that you have been moving around a lot more than usual. Not at all 09/02/2024 12:36 PM EDT Patience Browning Thoughts that you would be b ankit off or hurting yourself in some way Not at all 09/02/2024 12:36 PM Patience Templeton Patient Health Questionnaire -9 Score 0 09/02/2024 12:36 PM EDT Patience Browning * If you checked off any problems on this questionnaire so far, Question Answer Date of Assessment Author How difficult have these problems made it for you to do your work, take care of things at home, or get along with other people? Not difficult at all 09/02/2024 12:36 PM Patience Templeton documented as of this encounter Miscellaneous Notes * Telephone Encounter - Kylie Ricks - 08/05/2024 3:05 PM EDT Patient Phone Message Reason for Call: Pt's is requesting lab orders be sent to pt's PCP office. Best contact number and optimal time of day to reach caller: [phone] Note: Please do not reply to this message. Follow-up communication and further actions as a result of this message need to be communicated with the patient directly, if the patient is not active onMyChart. If the patient is active on MyChart, they will receive notification of the communication/outcome via MyChart. documented in this encounter Plan of Treatment Upcoming Encounters Date Type Department Care Team (Late st Contact Info) Description 08/26/2025 11:40 AM EDT Office Visit [email or web address] [address], [address] [place] [address] Malia Metz MD [address] [place] [address] documented as of this encounter Visit Diagnoses Not on filedocumented in this encounter Additional Health Concerns Assessment Noted Time PHQ-9 Depression Total Score: 0 05/30/19 25 9:38 AM EST A fall risk assessment has been complete d for the patient 06/11/2024 3:09 PM EDT A Body Mass Index follow-up plan has been documented for the patient 06/22/2024 10:58 AM EDT documented as of this encounter Care Teams Environmental Property Assessor Relationship Specialty Start Date End Date Kristina Wright APRN [address] [place] [address] PCP - General 01/07/24 documented as of this encounter
--- OUTSIDE RECORDS SUMMARY | 2024-10-07 11:26 | XMS_ITS | Encounter Summary ---
Author Organization [facility] Address [address] [place] [address] Care Team Providers Care Commercial Engineer Name Role Phone Kristina Wright EMANI Primary Care Provider +1- [phone] Encounter Details Date Type Department Care Team (Late st Contact Info) Description 09/05/2024 Telephone [facility] [address] [place] [address] Neurology, Physician, [address] [place] [address] Social History Tobacco Use Types Packs/Day Years [...] on file documented as of this encounter Plan of Treatment Upcoming Encounters Date Type Department Care Team (Late st Contact Info) Description 08/26/2025 11:40 AM EDT Office Visit [facility] Bone & Mineral Metabolism [address] , [address] [place] [address] Malia Metz MD [address] [place] [address] documented as of this encounter [...] documented as of this encounter Care Teams Commercial Engineer Relationship Specialty Start Date End Date Kristina Wright APRN [address] [place] [address] PCP - General 01/07/24 documented as of this encounter
--- OUTSIDE RECORDS SUMMARY | 2024-10-07 11:26 | XMS_ITS | Encounter Summary ---
Author Organization [facility] Address [address] [place] [address] Phone Care Team Providers Care Pool Cleaner Name Role Phone Other, Physician Georgiana REYES Primary Care Provi gael Unavailable Encounter Details Date Type Department Care Team (Late st Contact Info) Description 07/11/2024 Telephone [facility] [place] [facility] [address] [place] [address] [place] [address] [place], [place] [id number] Social History Tobacco Use Types Packs/Day Years Used Date Smoking Tobacco: Never Assessed Sex and Gender Information Value Date Recorded Sex Assigned at Not on file Legal Sex Male 3:42 PM EDT Gender Identity Not on file Sexual Orientation Not on file documented as of this encounter Miscellaneous Notes * Telephone Encounter - Michell Reddy - 07/11/2024 3:55 PM EDT LM regarding [employer] appt referred to Dr. Eagle for venous insufficiency for the [place] location. Nexttime Dr. Eagle is there is 5.2.25, 8:15 + 9:45 available. Please fill out the rest of the chart whenhe calls. Filled out with what was sent to us. All paperwork scanned into chart. No testing. documented in this encounter Plan of Treatment Not on file documented as of this encounter Visit Diagnoses Not on filedocumented in this encounter Care Teams Pool Cleaner Relationship Specialty Start Date End Date Other, Physician MD Georgiana Other PCP - General Internal Medicine 07/11/24 documented as of this encounter
--- OUTSIDE RECORDS SUMMARY | 2024-10-07 11:26 | XMS_ITS | Encounter Summary ---
Author Organization [facility] Address [address] [place] [address] Care Team Providers Care Seo Coordinator Name Role Phone Kristina Wright Ryanne JOAQUIN Primary Care Provider +1- [phone] Encounter Details Date Type Department Care Team (Latest Contact Info) Description 08/14/2024 Travel Social History Tobacco Use Types Packs/Day Years [...] 1 08/14/2024 12:01 PM EDT Logan Quintero B * If you checked off any problems on this questionnaire so far, Question Answer Date of Assessment Author How difficult have these problems made it for you to do your work, take care of things at home, or get along with other people? Not difficult at all 08/14/2024 12:01 PM EDT Barbara Quintero documented as of this encounter Plan of Treatment Upcoming Encounters Date Type Department Care Team (Late st Contact Info) Description 08/26/2025 11:40 AM EDT Office Visit [facility] [address], [address] [place] [address] Malia Metz MD [address] [place] [address] documented as of this encounter [...] documented as of this encounter Care Teams Seo Coordinator Relationship Specialty Start Date End Date Kristina Wright APRN [address] [place] [address] PCP - General 01/07/24 documented as of this encounter
--- OUTSIDE RECORDS SUMMARY | 2024-10-07 11:26 | XMS_ITS | Clinical Summary ---
Author Organization [facility] Address [address] [place] [address] Phone Care Team Providers Care Finisher Card Tender Name Role Phone Unavailable Primary Care Provider Unavailabl e Allergies Active Allergy Reactions Criticality Noted Date Comments Fish Containing Products Hives Certain fish Medications buPROPion (WELLBUTRIN) 75 mg Oral Tablet Take 75 mg by mouth 2 times daily. 05/02/2024 Active lisinopriL (PRINIVIL;ZESTR IL) 5 mg Oral Tablet Take 5 mg by mouth daily. 05/16/2024 Active naproxen (NAPROSYN) 375 mg Oral Tablet Take 375 mg by mouth every 12 hours as needed. Active ALPRAZolam (XANAX) 0.25 mg Oral Tablet Take 0.25 mg by mouth 2 times daily as needed. 05/16/2024 Active propranoloL (INDERAL) 10 mg Oral TabletIndicatio ns:Tremor Take 2 Tablets by mouth every 12 hours. 120 Tablet 2 09/24/2024 Active Active Problems No known active problems Encounters Date Type Department Care Team Description 09/23/2024 Refill [facility] [address] [place] [address] Marley Starks MD Medication Refill 08/04/2024 Telephone [facility] [address] [place] [address] Marley Starks MD Other (STD- medical record request) 07/31/2024 10:20 AM EDT Office Visit [facility] [address] [place] [address] Marley Starks MD Tremor (Primary Dx) from Last 3 Months Social History Tobacco Use Types Packs/Day Years Used Date Smoking Tobacco: Every Day Cigarettes Passive Smoke Exposure: Never Smokeless Tobacco: Never Sex and Gender Information Value Date Recorded Sex Assigned at Not on file Legal Sex Male 8:43 AM EDT Gender Identity Not on file Sexual Orientation Not on file Obstetrics History Last Filed Vital Signs Vital Sign Reading Time Taken Comments Blood Pressure 120/70 07/31/2024 10:15 AM EDT Pulse 82 07/31/2024 10:15 AM EDT Temperature 36.8 C (98.3 F) 07/31/2024 10:15 AM EDT Respiratory Rate - - Oxygen Saturation 98% 07/31/2024 10:15 AM EDT Inhaled Oxygen Concentration - - Weight 105.2 kg (232 lb) 07/31/2024 10:15 AM EDT Height 188 cm (6' 2 ) 07/31/2024 10:15 AM EDT Body Mass Index 29.79 07/31/2024 10:15 AM EDT Plan of Treatment Upcoming Encounters Date Type Department Care Team (Late st Contact Info) Description 11/21/2024 2:00 PM EDT Office Visit [facility] [address] [place] [address] Milo [place] MD [address] [place] [address] [place] [address] 03/05/2025 10:00 AM EST Office Visit [facility] [address] [place] [address] Carmen Kennedy MD [address] [place] [address] Health Maintenance Due Date Last Done Comments Annual Wellness Exam 1972 DTaP/TDaP/Td (1 - Tdap) 1988 Hepatitis B Vaccine (1 of 3 - 19+ 3-dose series) 1988 Pneumococcal Vaccine 50+ (1 of 2 - PCV) 1988 Cologuard 2014 Colon Cancer Screening 2014 Colonoscopy 2014 FIT 2014 Sigmoidoscopy 2014 Virtual Colonography 2014 Zoster (1 of 2) 2019 COVID-19 Vaccine (2023-2 5 season) 2023 Influenza Vaccine (#1) 2024 Meningococcal B Vaccine Aged Out No l onger eligible based on patient's age to complete this topic Insurance [facility] [facility] Member Subscriber Plan / Payer (Ef fective 2024-Present) Name:Demarcus Martin Relation to Subscriber:Self Name:Demarcus Martin Payer ID:Not on file Group ID:Not on file Type:Not on file Address: [address]
--- OUTSIDE RECORDS SUMMARY | 2024-10-07 11:26 | XMS_ITS | Encounter Summary ---
Author Organization [facility] Address [address] [place] [address] Care Team Providers Care Bill Clerk Name Role Phone Kristina Wright Ryanne JOAQUIN Primary Care Provider +1- [phone] Encounter Details Date Type Department Care Team (Latest Contact Info) Description 08/11/2024 Travel Social History Tobacco Use Types Packs/Day Years Used Date Smoking Tobacco: Every Day Cigarettes 1 15 Smokeless Tobacco: Never Alcohol Use Standard Drinks/Week Comments Never 0 (1 standard drink = 0.6 oz pur e alcohol) PHQ-2 Answer Date Recorded Patient Health Questionnaire-2 Score 2 06/11/2024 PHQ-9 Answer Date Recorded Patient Health Questionnaire-9 [...] 08/26/2025 11:40 AM EDT Office Visit [facility] [address] [place] [address] Malia Metz MD [address] [place] [address] documented as of this encounter Visit Diagnoses Not on filedocumented in this encounter Additional Health Concerns Assessment Noted Time PHQ-9 Depression Total Score: 0 05/30/19 9:38 AM EST A fall risk assessment has been complete d for the patient 06/11/2024 3:09 PM EDT A Body Mass Index follow-up plan has been documented for the patient 06/22/2024 10:58 AM EDT documented as of this encounter Care Teams Bill Clerk Relationship Specialty Start Date End Date Kristina Wright APRN [address] [place] [address] PCP - General 01/07/24 documented as of this encounter
--- OUTSIDE RECORDS SUMMARY | 2024-10-07 11:26 | XMS_ITS | Clinical Summary ---
Author Organization [facility] Address [address] [place] [address] Care Team Providers Care Remedy Developer Name Role Phone Adriana Kristina Pearl APRN Primary Care Provider +1- [phone] Allergies No known active allergies Medications ALPRAZolam (Xanax) 0.25 MG tablet TAKE ONE (1) TABLET TWICE A DAY BY ORAL ROUTE NEEDED FOR THREE (3) DAYS. 5 Active buPROPion (Wellbutrin) 75 MG tablet TAKE ONE (1) TABLET BY MOUTH DAILY FOR TWO (2) WEEKS THEN INCREASE TO ONE (1) TABLET TWICE DAILY FOR TWO (2) WEEKS 5 Active lisinopril 5 MG tablet take one (1) tablet every day by oral route. 5 Active propranolol (Inderal) 10 MG tablet TAKE ONE (1) TABLET BY MOUTH EVERY 12 HOURS FOR 14 DAYS, THEN TWO (2) TABLETS EVERY 12 HOURS FOR 30 DAYS. 5 Active naproxen (Naprosyn) 375 MG tablet Take 1 tablet by mouth 2 times a day. 5 Active predniSONE (Deltasone) 5 MG tabletIndication s:Arthralgia, unspecified joint Take 3 tablets for 5 days, then take 2 tablets for 5 days, then take 1 tablet for 5 days. 30 tablet 5 Active Active Problems Problem Noted Date Diagnosed Date Idiopathic peripheral neuropathy 06/22/2024 Anxiety 05/02/2024 Bone lesion 10/18/2022 Pain of right hip joint 10/12/2022 Chronic low back pain 10/12/2022 Encounters Date Type Department Care Team Description 09/05/2024 Telephone [facility] [address], [address] [place] [address] Neurology, Physician, 09/02/2024 12:50 PM EDT Office Visit [facility] [address], [address] [place] [address] Nadine Key APRN Arthralgia, unspecified joint (Primary Dx) 09/02/2024 Travel 08/28/2024 Travel 08/14/2024 12:00 PM EDT Office Visit [facility] [address], [address] [place] [address] Malia Metz MD Bone lesion (Primary Dx); Chronic low back pain, unspecified back pain laterality, unspecified whether sciatica present 08/14/2024 Travel 08/11/2024 Travel 08/08/2024 Telephone [facility] [address] , [address] [place] [address] Augustus Lee 08/05/2024 Telephone [facility] [address], [address] [place] [address] Augustus Lee 08/05/2024 Telephone [facility] [address], [address] [place] [address] Malia Metz MD HCN - Patient Message 08/01/2024 Telephone [facility] [address], [address] [place] [address] Augustus Lee 07/28/2024 1:44 PM EDT - 07/28/2024 11:59 PM EDT Hospital Encounter [facility] [address] [place] [address] Discharge Disposition: Home or Self Care 07/28/2024 11:37 AM EDT - 07/28/2024 1:43 PM EDT Hospital Encounter [facility] [address] [place] [address] 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 Discharge Disposition: Home or Self Care 07/28/2024 Travel 07/23/2024 Telephone [facility] [address], [address] [place] [address] Breanna Whaley 07/21/2024 Travel 07/09/2024 Travel from Last 3 Months Family History Medical History Relation Name Comments Autoimmune disease Mother Nevin Relation Name Status Comments Mother Nevin Social History Tobacco Use Types Packs/Day Years [...] Mass Index 30.54 09/02/2024 12:28 PM EDT Plan of Treatment Upcoming Encounters Date Type Department Care Team (Late st Contact Info) Description 08/26/2025 11:40 AM EDT [facility] Visit [facility] [address] , [address] [place] [address] aMlia Metz MD [address] [address] Health Maintenance Due Date Last Done Comments [facility]-HIV Screening 1970 [facility]-/Child/Adol SDOH Screenings 1970 [id number]-[id number] Vaccine (#1) 1974 [facility]- SDOH Screenings 1987 [facility]-Adult SDOH Screenings 1987 [facility]-DTaP,Tdap,and Td Vaccines (1 - Tdap) 1988 [facility]-Hepatitis B Vaccines (1 of 3 - 19+ 3-dose series) 1988 [facility]-Pneumococcal Vaccine: 50+ Years (1 of 2 - PCV) 1988 [facility]-Zoster Vaccines (1 of 2) 1988 CT Colonography 2014 Colonoscopy 2014 FIT-DNA 2014 FIT 2014 FOBT 2014 Sigmoidoscopy 2014 [facility]-Colorectal Cancer Screening 2014 [facility]-Influenza Vaccine (#1) 2024 [facility]-Bone Density Scan 06/11/2025 06/11/2024 [facility]-Depression Screening 09/02/2025 09/02/2024, 05/2024 [facility]-Hepatitis C Screening Completed 06/18/2024, [facility]-Obesity Intervention Completed 025, 08/14/2024, 06/11/2024, Additional history exists HPV Vaccines Aged Out No longer eligi ble based on patient's age to complete this topic [facility]-HIB Vaccines Aged Out No longer e ligible based on patient's age to complete this topic [facility]-Hepatitis A Vaccines Aged Out No longer eligible based on patient's age to complete this topic [facility]-IPV Vaccines Aged Out No longer e ligible based on patient's age to complete this topic [facility]-Rotavirus Vaccines Aged Out No lo nger eligible based on patient's age to complete this topic Procedures Procedure Name Priority Date/Time Associated Diagnosis Comments NM BONE SCAN WHOLE BODY Routine 07/28/2024 3:13 PM EDT 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 Absence of abnormal bone scan findings suggestive of benign process. No scintigraphic evidence of abnormal osteoblastic bone pathology. CRITICAL RESULT: No. COMMUNICATION: Per this written report. By electronically signing this report, I, the attending physician, attest that I have personally reviewed the images/data for the above examination(s) and agree with the final edited report. Drafted by Emiliano Max MD on 07/28/2024 3:12 PM Final report signed by Angel Benites MD on 07/28/2024 3:44 PM Narrative 07/28/2024 3:44 PM EDT CLINICAL INDICATION: Bone mass or bone pain, pelvis, benign features on xray. TECHNIQUE: At 2-3 hours following intravenous administration of 26 mCi of Tc-99m MDP, whole-body images were acquired in anterior and posterior projections. Regional images of skull, cervical spine, thorax, upper extremities, and post-void pelvis were acquired in multiple projections. COMPARISON/CORRELATION: Hip radiograph 06/11/2024 FINDINGS: Bones: No sites of focal increased or decreased radiotracer uptake in axial and appendicular skeleton. Specifically, no abnormal radiotracer localization associated with the radiographic finding in the left ischium. Bones/Joints: Focal mildly intense increased uptake involving shoulders, acromioclavicular joints, sternomanubrial joint, sternoclavicular joints, elbows, wrists and hands, knees, ankles and feet, consistent with benign/arthritic/degenerative/post-traumatic changes. Soft-tissues: Normal. Two kidneys visualized. Procedure Note Angel Benites MD - 07/28/2024 CLINICAL INDICATION: Bone mass or bone pain, pelvis, benign features on xray. TECHNIQUE: At 2-3 hours following intravenous administration of 26 mCi of Tc-99m MDP,whole- body images were acquired in anterior and posterior projections.Regional images of skull, cervical spine, thorax, upper extremities, andpost-void pelvis were acquired in multiple projections. COMPARISON/CORRELATION: Hip radiograph 06/11/2024 FINDINGS: Bones: No sites of focal increased or decreased radiotracer uptake inaxial and appendicular skeleton. Specifically, no abnormal radiotracerlocalization associated with the radiographic finding in the leftischium. Bones/Joints: Focal mildly intense increased uptake involving shoulders,acromioclavicular joints, sternomanubrial joint, sternoclavicular joints,elbows, wrists and hands, knees, ankles and feet, consistent withbenign/arthritic/degenerative/post-traumatic changes. Soft-tissues: Normal. Two kidneys visualized. IMPRESSION: No abnormal or suspicious radiotracer uptake associated with theradiographic findings in the left ischium. Absence of abnormal bone scanfindings suggestive of benign process. No scintigraphic evidence of abnormal osteoblastic bone pathology. CRITICAL RESULT: No. COMMUNICATION: Per this written report. By electronically signing this report, I, the attending physician, attestthat I have personally reviewed the images/data for the aboveexamination(s) and agree with the final edited report. Drafted by Emiliano Max MD on 07/28/2024 3:12 PM Final report signed by Angel Benites MD on 07/28/2024 3:44 PM Malia Metz MD IMG NM PROCEDURES Final Result * Hepatitis C Antibody - ED W/Reflex to HCV Quant PCR (06/18/2024 11:39 AM EDT) Blood Venous blood specimen / Unknown Historical Provider LAB BLOOD ORDERABLES Izzy l Result * Dexa Bone Density Axial Skeleton W VFA (06/11/2024 2:10 PM EDT) Anatomical Region Laterality Modality Body Radio Fluoroscop y Narrative 06/21/2024 5:44 PM EDT [facility] [address] [place], [place] [id number] DXA Bone Densitometry Report: [06/11/2024] BMD test performed using the [employer]oghead DXA System (analysis version: 14.10) manufactured by [employer]. REFERRING PROVIDER: Dr. Abbey Denton APRN CLINICAL INFORMATION: osteoporosis PATIENT NAME: Demarcus Martin PATIENT AGE: 54 y.o. LEGAL SEX: male RADIOGRAPHIC VIEWS: Sites scanned: AP Spine, HIP Right , HIP Left, VFA, and TBS COMPARISON STUDY: DXA Axial Prior studies are not available for comparison, VFA Prior studies are not available for comparison, and TBS Prior studies are not available for comparison FINDINGS: Based on T-score (males over 50 years of age) the diagnosis is Normal bone density The presence of arthritic or degenerative joint changes in the spine could artefactually increase measured BMD. TBS: The TBS L1-L4 of 1.514 indicates normal microarchitecture VFA: LVA Morphometry performed on T8-L4 vertebrae: There is no e/o vertebral compression deformity on the VFA study TREATMENT RECOMMENDATIONS: Work up for secondary osteoporosis and metabolic bone disease could be considered based on clinical indications. Suggest general measures to optimize calcium and vitamin D status, fall prevention measures and reduce fracture risk. Consider repeating this study in 2 year(s) or as clinically indicated to assess bone density change or response to treatment (should be performed on the same DXA scanner to allow for direct comparison and calculation of change in BMD). Abbey Denton APRN IMG DXA PROCEDURES Final Res ult from Last 3 Months or Most Recently Relevant to Health Maintenance [facility] [place] Care Teams Remedy Developer Relationship Specialty Start Date End Date Kristina Wright APRN [address] [place] [id number] PCP - General 01/07/24
--- OUTSIDE RECORDS SUMMARY | 2024-10-07 11:26 | XMS_ITS | Referral Summary ---
Author Organization [facility] Address [address] [place] [address] Care Team Providers Care Rn Navigator Name Role Phone Other, Physician Georgiana REYES Primary Care Provi gael Unavailable Encounters Date Type Department Care Team Description 07/22/2024 Abstract [facility] [address] [place] [address] Finesse Eagle MD Anxiety (Primary Dx); Acute contact otitis externa of left ear; Venous insufficiency; Pain in joint of right hip; Tinea pedis of both feet 07/11/2024 Telephone [facility] [address] [place] [address] Finesse Eagle MD from Last 3 Months Allergies No known active allergies Medications buPROPion (WELLBUTRIN) 75 MG TABS Take 75 mg by mouth as needed. 5 Active lisinopril (PRINIVIL,ZESTR IL) 5 mg TABS Take 5 mg by mouth daily. 5 Active ALPRAZolam (XANAX) 0.25 MG TABS Take [...] otitis externa of left ear 07/22/2024 07/22/2024 Social History Tobacco Use Types Packs/Day Years [...] 07/22/2024 3:10 PM EDT Plan of Treatment Not on file Insurance [employer] ALL OTHERS NOT MEDICARE * Guarantor: Demarcus Martin Account Type Relation to Patient Date of Phone Billing Address Personal/Family Self 1970 [address] [place] [address] Care Teams Rn Navigator Relationship Specialty Start Date End Date Other, Physician MD Georgiana Other PCP - General Internal Medicine 07/11/24
--- OUTSIDE RECORDS SUMMARY | 2024-10-07 11:26 | XMS_ITS | Encounter Summary ---
Author Organization [facility] Address [address] [place] [address] Care Team Providers Care Ship Worker Name Role Phone Kristina wen Ryanne JOAQUIN Primary Care Provider +1- [phone] Encounter Details Date Type Department Care Team (Latest Contact Info) Description 09/02/2024 Travel Social History Tobacco Use Types Packs/Day [...] Patience Browning documented as of this encounter Plan of Treatment Upcoming Encounters Date Type Department Care Team (Late st Contact Info) Description 08/26/2025 11:40 AM EDT Office Visit [facility] [address] [facility], [address] [place] [address] Malia Metz MD [address] [facility] [address] [place] [address] documented as of this encounter [...] documented as of this encounter Care Teams Ship Worker Relationship Specialty Start Date End Date Kristina Wright APRN [address] [place] [address] PCP - General 01/07/24 documented as of this encounter
--- OUTSIDE RECORDS SUMMARY | 2024-10-07 11:26 | XMS_ITS | Continuity of Care Document ---
Author Organization [facility] Address [address] [place] [address] Care Team Providers Care Dragline Operator Name Role Phone TAY WRIGHT Primary Care Provider [phone] Assessment No assessment recorded. Plan of Treatment Reminders Order Date Submit Date Provider Last Modified By Organization Details Last Modified Time Details Appointments None recorded. Lab None recorded. Referral None recorded. Procedures None recorded. Surgeries None recorded. Imaging None recorded. Medication Orders lisinopril 5 mg tablet [address] [place] [address], [address], 5 16:40:59 propranolol 10 mg tablet [address] [place] [address], [address], 5 16:41:00 bupropion HCl 75 mg tablet [address] [place] [address], [address], 5 17:01:04 Patient TargetsNo targets recorded. Patient InstructionsNo instructions recorded. Reason for Referral None Reported. Problems Name Problem SNOMED Code Status Onset Date Resolution Date Notes Provider Name and Address Organization Details Recorded Time Hypertensi ve disorder 56896303 Active Anamaria Benitez [facility] 2 13:33:52 Pain of right hip joint 4283255764263 02 Active 2022 Tay Wright APRN [address], [place], [address] , [place] - [facility] 5 13:17:14 Imaging of musculoske letal system abnormal 269109471 Active 2022 Freedom Amin APRN [address], [place], [address] , [place] [facility] 3 14:09:59 Venous insufficie ncy of leg 617861340 Active 2022 Tay Wright APRN [address], [place], [address] , [place] [facility] 5 13:17:21 Chronic low back pain 088999603 Active 2022 Tay Wright APRN [address], [place], [address] , [place] [facility] 5 13:17:08 Acute otitis externa of left ear 6138737838929 108 Active 2022 Freedom Amin APRN [address], [place], [address] , [place] [facility] 3 14:36:40 Lesion of bone 070116662 Active 2022 Tay Wright APRN [address], [place], [address] , [place] [facility] 5 13:17:11 Anxiety 25791421 Active 2024 Tay Wright APRN [address], [place], [address] , [place] [facility] 5 13:17:03 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 Procedures Surgical History Date Name Laterality Status Provider Name and Address Organization Details Recorded Time 12/14/19 24 Medication Reconcilliation completed Anamaria Benitez [place] - [facility] 12/14/2023 09:30:53 02/21/20 23 Splint Application completed Tay Wright APRN [address], [place], [address], [place] - [facility] 02/20/2023 15:07:09 02/21/20 23 Medication Reconcilliation completed Anamaria Benitez [place] - [facility] 02/20/2023 14:30:20 Explore scrotum completed Anamaria RODRIGUEZ - [facility] 12/02/2021 13:35:15 Imaging Results None [...] height Body mass index (BMI) Body weight Oxygen saturation Oxygen saturation in Arterial blood by Pulse oximetry Respiratory rate Heart rate Body temperature Systolic And Diastolic Provider Name and Address Organization Details Last Updated DateTime 5 187.96 cm 29.8 kg/m2 332642. 43 g 98 % 98 % 18 /min 78 /min 97.9 [degF] 132/90 mm[Hg] Simonajeff Roland [place] - [facility] 5 15:29:37 Social History Question Answer Notes LastModified by [...] Or The Highest Degree You Have Received? [id number] Information not available 06/17/2024 Have There Been Any Changes To Your Family Or Social Situation? No Information no t available 04/21/2022 What Is The Fluoride Status Of Your Home? Unknown Information not available 04/21/2022 Have You Recently Or Are You Planning To Travel To An Area With Zika Virus? No Information not available 09/14/2022 Do You Have A Medical Power Of Hot Cell Technician? No Information not available 04/21/2022 What Was [...] anxious, or unable to sleep at night)? [id number] Information not available 04/21/2022 Do you have [...] Condition Response Depression Y Anxiety Disorder Y Hypertension Y Arthritis Y Past Encounters Encounter ID Performer Location Encounter Start Date Encounter Closed Date Diagnosis/Indication Diagnosis SNOMED-CT Code Diagnosis ICD10 Code Diagnosis Note [id number] Tay Wright [address] [address] 07/21/2024 14:56:30 07/21/2024 15:51:20 Pain of hip region 07446551 M25.552 call ra richardson for appointmen t asapif symptoms worsen or no improvemen t [facility] follow up appointmen ts [id number] Tay Lombardibettye [address] [address] 08/07/2024 15:10:48 08/07/2024 16:29:22 Lesion of bone 578381206 M89.9 follow up with mdcopy of all labs given to pt Anxiety 64349567 F41.9 Pt compliant with plan of careKasper reviewedme dication compliance discussedL ast uds: 5Control substance agreement on file Low back pain 376379740 M54.50 [id number] Tay Wright [address] [address] 08/14/2024 15:53:23 08/14/2024 16:31:34 Acute bronchitis 55050260 J20.9 encouraged to stop smokingret urn if any worsening of symptoms Pain of mu ltiple joints 04781286 M25.50 if worsen or no improvemen t returnfoll ow up with ra richardson- as scheduled Functional movement disorder 390590167 G25.9 ok to return to trial of work [id number] Tay Lombardibettye [address] [address] 08/19/2024 15:08:34 08/19/2024 16:30:50 Functional movement disorder 790040956 G25.9 ok to return to trial of work Anxiety 75538665 F41.9 Pt compliant with plan of careKasper reviewedme dication compliance discussedL ast uds: 5Control substance agreement on file Hypertensive disorder 38 658236 I10 Health Concerns Section Related Observation LastModified by Organization Detai ls LastModified Time None Recorded Concern Status LastModified by Organization Details LastModified Time None Recorded Payers Encounter Date Sequence Insurance Name Policy Number Policy Ramos Covered Member ID Ramos Member ID Guarantor Name 08/19/2024 1 [employer] (PPO) [id number] Demarcus Martin [id number] Demarcus Martin 08/19/2024 2 PASSPORT BY [facility] (MEDICAID REPLACEMENT - HMO) Demarcus Martin [id number] Demarcus Martin Notes Date Note Type Note Provider Name and Address Organization Details Recorded Time 08/19/2024 text/html 54 year old male who presents to the office today for a follow up onfunctional movement/neurologic al disorderwants to discuss returning to work-pt states he thinks he is ready to returnalso needs meds refilled for htn,anxiety and fmd Tay Wright, FOOD AND BEVERAGE OPERATIONS MANAGER [address], [place], [address], [place] - [facility] 08/19/2024 17:01:10
--- OUTSIDE RECORDS SUMMARY | 2024-10-07 11:26 | XMS_ITS | Encounter Summary ---
Author Organization [facility] Address [address] [place] [address] Care Team Providers Care Plant Utilities Engineer Name Role Phone Kristina Wright EMANI Primary Care Provider +1- [phone] Encounter Details Date Type Department Care Team (Late Contact Info) Description 08/08/2024 Telephone [facility] [address] [facility], [address] [place] [address] Augustus Lee Social History Tobacco Use Types Packs/Day Years [...] encounter Miscellaneous Notes * Telephone Encounter - Augustus Lee - 08/08/2024 8:54 AM EDT Called pt regarding a message that labs where not fax tp pcp, pt states they have the labs andshe well fax them to our clinic. documented in this encounter Plan of Treatment Upcoming Encounters Date Type Department Care Team (Late Contact Info) Description 08/26/2025 11:40 AM EDT Office Visit [facility] [address] [facility], [address] [place] [address] Malia Metz MD [address] [place] [address] documented as of this encounter [...] documented as of this encounter Care Teams Plant Utilities Engineer Relationship Specialty Start Date End Date Kristina Wright APRN [address] [place] [id number] PCP - General 01/07/24 documented as of this encounter
--- OUTSIDE RECORDS SUMMARY | 2024-10-07 11:26 | XMS_ITS | Data Portability ---
Author Organization [facility] Address [address] [place] [address] Care Team Providers Care Fruit Grading Supervisor Name Role Phone ETHAN TAY Primary Care Provider [phone] Assessment No assessment recorded. Plan of Treatment Reminders Order Date Submit Date Provider Last Modified By Organization Details Last Modified Time Details Appointments None recorded. Lab None recorded. Referral neurologist referral 2024 025 [facility] Katina Grace MD, [address], [address], 13:41:07 rheumatolog ist referral 2024 025 [facility], [address] [place] [address], [place], [address], 5 09:08:55 neurologica l surgeon referral 2024 025 BLAYNE Vergara MD, [address] [place], [address], 15:23:17 Procedures None recorded. Surgeries None recorded. Imaging None recorded. Medication Orders lisinopril 5 mg tablet 2024 025 [facility], [address] [place], [address], 16:40:59 propranolol 10 mg tablet 2024 025 [facility], [address] [place], [address], 5 16:41:00 bupropion HCl 75 mg tablet 2024 025 [facility], [address] [place] [address], [address], 5 17:01:04 albuterol sulfate HFA 90 mcg/actuati on aerosol inhaler 2024 025 [facility], [address] [place] [address], [place], [address], 5 16:48:58 Xanax 0.25 mg tablet [address], [address], 5 16:11:01 naproxen 375 mg tablet 2024 025 [facility], [address] [place] [address], [address], 5 16:10:41 Patient TargetsNo targets recorded. Patient InstructionsNo instructions recorded. Reason for Referral Neurological Surgeon Referra l for Low back pain Referring Physician: Tay Wright [facility], Encounter Date: 08/07/2024 [employer] Referral for Pain of multiple joints Referring Physician: [facility], Encounter Date: 08/14/2024 Neurologist Referral for Fun ctional movement disorder Referring Physician: Tay Wright [facility], Encounter Date: 09/30/2024 Problems Name Problem SNOMED Code Status Onset Date Resolution Date Notes Provider Name and Address Organization Details Recorded Time Hypertensi ve disorder 47258262 Active JENNIFER Miller - [facility] 2 13:33:52 Pain of right hip joint 5413634351461 02 Active 2022 Tay Wright APRN [address], [place], [address] , [place] - [facility] 5 13:17:14 Imaging of musculoske letal system abnormal 897701545 Active 2022 Freedom Amin, HOSPICE CLINICAL MARKETER [address], [place], [address] , [place] [facility] 3 14:09:59 Venous insufficie ncy of leg 393461749 Active 2022 Tay Wright, HOSPICE CLINICAL MARKETER [address], [place], [address] , [place] [facility] 5 13:17:21 Chronic low back pain 121928810 Active 2022 Tay Wright APRN [address], [place], [address] , [place] [facility] 5 13:17:08 Acute otitis externa of left ear 4208406747290 108 Active 2022 Freedom Amin, EMANI [address], [place], [address] , [place] [facility] 3 14:36:40 Lesion of bone 559409237 Active 2022 Tay Wright APRN [address], [place], [address] , [place] [facility] 5 13:17:11 Anxiety 01590917 Active 2024 Tay Wright APRN [address], [place], [address] , [place] [facility] 5 13:17:03 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 Procedures Surgical History Date Name Laterality Status Provider Name and Address Organization Details Recorded Time 12/14/19 24 Medication Reconcilliation completed Anamaria Benitez [place] - [facility] 12/14/2023 09:30:53 02/21/20 23 Splint Application completed Tay Wright HOSP[employer] MARK[employer] [address], [place], [address], [place] - [facility] 02/20/2023 15:07:09 02/21/20 23 [...] Details Last Updated DateTime 5 187.96 cm 29.5 kg/m2 616485. 25 g 79 /min 97 % 97 % 18 /min 132/80 mm[Hg] Anamaria Benitez [place] - [facility] 5 15:19:29 Date Recorded Body height Respiratory rate Body mass index (BMI) Body weight Oxygen saturation Oxygen saturation in Arterial blood by Pulse oximetry Heart rate Systolic And Diastolic Provider Name and Address Organization Details Last Updated DateTime 5 187.96 cm 18 /min 29.9 kg/m2 892510. 02 g 97 % 97 % 74 /min 160/92 mm[Hg] Simona Fatumas [place] - [facility] 5 15:27:52 Date Recorded Body height Body mass index (BMI) Body weight Heart rate Oxygen saturation Oxygen saturation in Arterial blood by Pulse oximetry Respiratory rate Body temperature Systolic And Diastolic Provider Name and Address Organization Details Last Updated DateTime 5 187.96 cm 30.2 kg/m2 611920. 21 g 80 /min 98 % 98 % 18 /min 98 [degF] 146/84 mm[Hg] Simona Stears [place] - [facility] 5 16:13:13 Date Recorded Body height Body mass index (BMI) Body weight Oxygen saturation Oxygen saturation in Arterial blood by Pulse oximetry Respiratory rate Heart rate Body temperature Systolic And Diastolic Provider Name and Address Organization Details Last Updated DateTime 5 187.96 cm 29.8 kg/m2 991765. 43 g 98 % 98 % 18 /min 78 /min 97.9 [degF] 132/90 mm[Hg] Simona Stears [place] - [facility] 5 15:29:37 Date Recorded Body height Body mass index (BMI) Body weight Heart rate Oxygen saturation Oxygen saturation in Arterial blood by Pulse oximetry Respiratory rate Systolic And Diastolic Provider Name and Address Organization Details Last Updated DateTime 5 187.96 cm 29.4 kg/m2 243179. 65 g 75 /min 96 % 96 % 18 /min 144/88 mm[Hg] Anamaria Benitez [place] - [facility] 15:37:33 Social History Question Answer Notes LastModified by Organizat ion Details LastModified Time Tobacco Smoking Status Current Every Day Smoker Anamaria [place], [place] - [facility] 12/02/2021 13:34:35 Do [...] Or The Highest Degree You Have Received? WI34008-6 Information not available 06/17/2024 Have There Been Any Changes To Your Family Or Social Situation? No Information no t available 04/21/2022 What Is The Fluoride Status Of Your Home? Unknown Information not available 04/21/2022 Have You Recently Or Are You Planning To Travel To An Area With Zika Virus? No Information not available 09/14/2022 Do You Have A Medical Power Of Conference Services Director? No Information not available 04/21/2022 What [...] anxious, or unable to sleep at night)? [id number] Information not available 04/21/2022 Do you have difficulty concentrating, remembering or making decisions? No Information no t available 04/21/2022 Family History Relationship Description Onset Age of this Age Resolved Age Notes LastModified by Organization Details LastModified Time Maternal Grandfather Malignant neoplasm of lung bstears Not available 2022 09:04:33 Maternal Aunt Malignant tumor of breast [id number] Not available 2024 13:53:02 Medical History Condition Response Anxiety Disorder Y Arthritis Y Hypertension Y Depression Y Past Encounters Encounter ID Performer Location Encounter Start Date Encounter Closed Date Diagnosis/Indication Diagnosis SNOMED-CT Code Diagnosis ICD10 Code Diagnosis Note [id number] Tay Wright APRN [address] [address] 12/02/2021 12:50:44 12/02/2021 14:06:29 COVID-19 108580766 U07.1 Acute bronchitis 8114347 2 J20.9 [id number] Tay Wright APRN [address] [address] 12/06/2021 08:22:31 12/06/2021 09:07:57 Suspected COVID-19 295148673 Z20.822 COVID-19 124341216 U07.1 no sign of a bacterial infection. likely viral. viruses can take 7-14 days to run their course. nasal saline and bulb syringe to remove nasal drainage to help with congestion . monitor temp. Tylenol or Motrin as needed for pain or fever. encourage fluids, water, Gatorade, power aide, Pedialyte if infant/tod dler/child warm salt water gargles warm fluids sore throat lozenges sleep elevated humidifier /vaporizer follow up immediatel y for new or worsening symptoms or no noticeable improvemen t over the next 48-72 hours may return to workif around pt at high risk wear mask [id number] Tay Wright [address] [address] 04/21/2022 08:51:16 04/21/2022 10:03:28 Hypertensive disorder 41540308 I10 keep log after labs will restart med, call office if bp is highreturn in 2 weeks Fluttering heart 6910180 04 R00.2 Pain of ri ght hip joint 8059156646 66206 M25.551 Low back pain 907620949 M54.50 Numbness of hand 4895753 04 R20.0 [id number] Tay Wright [address] [address] 09/14/2022 09:22:57 09/14/2022 10:36:10 Body mass index 25-29 - overweight 000090768 Z68.28 Overweight 693522178 E66 .3 Pain of mu ltiple joints 53831126 M25.50 Low back pain 613121000 M54.50 Edema 328390220 R60.9 Bilateral cramp of muscle of lower limbs 4752865092 6713010 R25.2 [id number] Freedom Amin [address] [address] 10/12/2022 13:43:34 10/12/2022 15:00:27 Imaging of musculoskeletal system abnormal 946352343 R93.7 f/u for 7.3 lytic lesion of left ischium as seen on xray Venous ins ufficiency of leg 721575792 I87.2 I83.892 US right lower extremity for verificati on Chronic low back pain 27 6285786 M54.50 M51.36 lumbar spine imaging + degenerati ve changes Acute otit is externa of left ear 5228727490 826060 H60.174 [id number] Tay Wright[address] [address] 11/03/2022 14:39:40 11/03/2022 15:03:04 Acute left otitis media 185502572 H66.92 Acute bronchitis 5209827 2 J20.9 steroids [id number] Tay Wright[address] [address] 01/12/2023 09:49:17 01/12/2023 10:59:50 Pain of right elbow joint 4778491982 0247766 M25.521 Pain of le ft hip joint 2876319324 89041 M25.552 Tremor 65916562 R25.1 [id number] Tay Wright [address] [address] 02/05/2023 14:46:28 02/05/2023 16:04:51 Acute bronchitis 55616007 J20.9 pt states he has steroids at homereturn if any worsening of symptoms [id number] Tay Wright[address] [address] 02/20/2023 14:11:02 02/20/2023 15:03:45 Pain in right foot 2238378853 10015 M79.681 [id number] Tay Wright[address] [address] 02/26/2023 14:10:39 02/26/2023 15:24:16 Pain in right foot 1221073228 [address] serrano and she will see pt sooner.res ent new xraysno work until seen by Dr Brizuela [id number] Tay Wright [address] [address] 04/19/2023 09:12:37 04/19/2023 11:12:00 Acute maxillary sinusitis 01513763 J01.00 [id number] Tay Wright [address] [address] 07/13/2023 13:37:26 07/13/2023 14:27:55 Pain of right hip joint 9823868691 45494 M25.551 Pain of ri ght knee joint 2383622194 50982 M25.561 Pain in right hand 74409 51230 23518 M79.641 Gastroesop hageal reflux disease without esophagitis 427811766 K21.9 Arthritis 7447036 M19.90 [id number] Tay Wright [address] [address] 08/14/2023 09:13:23 08/14/2023 10:21:11 Acute maxillary sinusitis 97055320 J01.00 Acute bronchitis 4827875 2 J20.9 return if any worsening of symptoms Seasonal a llergic rhinitis 026422104 J30.2 [id number] Tay Wright [address] [address] 10/16/2023 13:21:47 10/16/2023 14:50:36 Prediabetes 770074905 R73.03 Tested A1c to r/o diabetes, based on patient statements and assessment . Anxiety 64153342 F41.9 discussed med in detail- any issues or concerns go to ed meghna Low back pain 681440770 M54.50 Pain of le ft hip joint 9536088631 39048 M25.552 Gastroesop hageal reflux disease 928635231 K21.9 [id number] Tay Wright [address] [address] 12/10/2023 16:19:02 12/10/2023 17:00:02 Anterior chest wall pain 314476491 R07.89 spoke with addie- sent pt to ed for eval Neck pain 42598345 M54.2 [id number] Anthonytyrone ethan [address] [address] 12/14/2023 09:16:57 12/14/2023 10:28:34 Anxiety 53627800 F41.9 discussed med in detail- any issues or concerns go to ed meghna Gastroesop hageal reflux disease 746981649 K21.9 Renal osteodystrophy 167 18894 N25.0 Neck pain 04105361 M54.2 Computed t omography result abnormal 364483988 R93.[address] neck 12/10/23 [id number] [facility] [address] 01/03/2024 13:10:36 01/03/2024 14:42:09 Renal osteodystrophy 00822505 N25.0 [id number] Anthonytyrone Wright [address] [address] 05/02/2024 13:41:48 05/02/2024 15:08:48 Anxiety 95888695 F41.9 discussed med in detail- any issues or concerns go to ed meghna Panic attack 598047127 F 41.0 trial of xanax until meds back in system and panic under control Computed t omography result abnormal 674320525 R93.[address] neck 12/10/23sylvia forrest md and rescudule appointmen t Pain of mu ltiple joints 27093128 M25.50 will refer to ra richardson [id number] Tay Wright[address] [address] 05/16/2024 13:30:20 05/16/2024 14:58:00 Anxiety 93491963 F41.9 discussed med in detail- any issues or concerns go to ed asapwill give 3 more days of xanax- advised to take wellbutrin every day and how it was ordered Venous ins ufficiency of leg 453339700 I87.2 I83.892 Chronic low back pain 27 3119768 M54.50 Pain of ri ght hip joint 1548616135 51944 M25.551 Hypertensive disorder 38 333717 I10 Imaging of musculoskeletal system abnormal 451324699 R93.7 [id number] Tay Wright [address] [address] 06/09/2024 14:51:45 06/09/2024 15:51:21 Pain of multiple joints 28649643 M25.50 labsfollow up with ra richardson Anxiety 81987635 F41.9 discussed med in detail- any issues or concerns go to ed asapwill give 7 more days of xanax- advised to take wellbutrin every day and how it was ordered Hypertensive disorder 38 552365 I10 Long-term current use of drug therapy 729620989 Z79.438 [id number] Tay Wright [address] [address] 06/12/2024 12:51:57 06/12/2024 14:10:23 Osteoporosis 72856743 M81.0 [id number] Tay Wright [address] [address] 06/17/2024 13:50:20 06/17/2024 15:07:36 General examination of patient 981246479 Z00.00 Exercises education, guidance, and counseling 686937418 Z71.82 The patient was advised to continue a healthy diet and exercise regularly. Dietary ma alexa surveillance 366457709 Z71.3 Tremor 96999474 R25.1 refer to neuro Pain of mu ltiple joints 40400539 M25.50 if worsen or no improvemen t returnfoll ow up with ra - as scheduled [id number] Tay Wright [address] [address] 07/11/2024 12:49:26 07/11/2024 13:46:10 Anxiety 78543973 F41.9 Pt compliant with plan of careKasper reviewedme dication compliance discussedL ast uds: 5Control substance agreement on file Hypertensive disorder 38 571981 I10 Tinea pedis 9766620 B35. 3 Vascular insufficiency 60277795 I87.2 [id number] Tay Wright [address] [address] 07/21/2024 14:56:30 07/21/2024 15:51:20 Pain of hip region 94121111 M25.552 call ra richardson for appointmen t asapif symptoms worsen or no improvemen t return or go to edep all follow up appointmen ts [id number] Tay Wright [address] [address] 08/07/2024 15:10:48 08/07/2024 16:29:22 Lesion of bone 905471371 M89.9 follow up with mdcopy of all labs given to pt Anxiety 21604924 F41.9 Pt compliant with plan of careKasper reviewedme dication compliance discussedL ast uds: 5Control substance agreement on file Low back pain 486918037 M54.50 [id number] Tay Wright [address] [address] 08/14/2024 15:53:23 08/14/2024 16:31:34 Acute bronchitis 39432536 J20.9 encouraged to stop smokingret urn if any worsening of symptoms Pain of mu ltiple joints 37711351 M25.50 if worsen or no improvemen t returnfoll ow up with ra richardson- as scheduled Functional movement disorder 723151729 G25.9 ok to return to trial of work [id number] Tay Wright [address] [address] 08/19/2024 15:08:34 08/19/2024 16:30:50 Functional movement disorder 644881999 G25.9 ok to return to trial of work Anxiety 66476486 F41.9 Pt compliant with plan of careFran reviewedme dication compliance discussedL ast uds: 5Control substance agreement on file Hypertensive disorder 38 419750 I10 [id number] Tay Wright APRN [address] [address] 09/30/2024 15:15:39 09/30/2024 16:25:40 Functional movement disorder 864936999 G25.9 off work until pt completed and mricalled [facility] office to see if they can see him meghna Health Concerns Section Related Observation LastModified by Organization Detai ls LastModified Time None Recorded Concern Status LastModified by Organization Details LastModified Time None Recorded Advance Directives Directive N: Payers Insurance Date Sequence Insurance Name Policy Number Policy Ramos Covered Member ID Ramos Member ID Guarantor Name 04/21/2022 2 *SELF PAY* Wi lliajanae Martin 09/30/2024 2 PASSPORT BY [email or web address] (MEDICAID REPLACEMENT - HMO) Demarcus Martin [id number] Demarcus Martin 02/26/2023 [facility] [id number] Demarcus Martin 09/30/2024 [place] [id number] Demarcus Martin [id number] Demarcus Martin 09/30/2024 1 [place] [id number] Demarcus Martin [id number] Demarcus Martin Notes Date Note Type Note Provider Name and Address Organization Details Recorded Time 07/21/2024 text/html 54 yr old male presents for left hip pain and pain in multiple joints and his head is leaning down and he can't hold it up. He will see neurology on July 31. Tay Wright APRN [address], [place], [address], [place] - [facility] 07/21/2024 16:42:56 08/07/2024 text/html 54 year old male who presents to the office today for a follow up on a bone lesion- needs labs drawn for Dr. Metz. states he sees him next . pt states he also would like to see someone for his low back pain.pt states he also is out of xanax. pt states it helps with his panic attacks Tay LombardiEMANI wen [address], [place], [address], [place] - [facility] 08/07/2024 16:19:56 08/14/2024 text/html 54 year old male who presents to the office today with concerns ofcough when waking up in the morning and wheezing in chest when laying downpt states he is doing much better and would like to return to work 08/23/24.would like a new referral sent to ra richardson at [facility] Tay EMANI wen [address], [place], [address], [place] - [facility] 08/14/2024 16:50:13 08/19/2024 text/html 54 year old male who presents to the office today for a follow up onfunctional movement/neurologic al disorderwants to discuss returning to work-pt states he thinks he is ready to returnalso needs meds refilled for htn,anxiety and fmd Anthonytyrone EMANI wen [address], [place], [address], [place] - [facility] 08/19/2024 17:01:10 09/30/2024 text/html 54 yr old male presents [...] as ordered mri but needs PT first. Anthonytyrone EMANI wen [address], [place], [address], [place] [facility] 09/30/2024 18:24:33
--- OUTSIDE RECORDS SUMMARY | 2024-10-07 11:26 | XMS_ITS | Encounter Summary ---
Author Organization Healthcare Address [address] [place] [address] Care Team Providers Care Home Health Care Case Manager Name Role Phone Kristina Wright Ryanne JOAQUIN Primary Care Provider [phone] Encounter Details Date Type Department Care Team (Latest Contact Info) Description 08/28/2024 Travel Social History Tobacco Use Types Packs/Day [...] 08/26/2025 11:40 AM EDT Office Visit Professional [facility] [address] , [address] [place] [address] Malia Metz MD [address] [place] [address] documented as of this encounter [...] documented as of this encounter Care Teams Home Health Care Case Manager Relationship Specialty Start Date End Date Kristina Wright APRN [address] [place] [address] PCP - General 01/07/24 documented as of this encounter
--- OUTSIDE RECORDS SUMMARY | 2024-10-07 11:26 | XMS_ITS | Encounter Summary ---
Author Organization [place] [address] Care Team Providers Care Oyster Grader Name Role Phone Unavailable Primary Care Provider Unavailabl e Reason for Visit * Reason Onset Date Comments Medication Refill 09/23/2024 Encounter Details Date Type Department Care Team (Late st Contact Info) Description 09/23/2024 Refill SEP Neurology [facility] [address] [place] [address] Marley Starks MD [address] [place] [place] [address] Medication Refill Social History Tobacco Use Types Packs/Day Years Used Date Smoking Tobacco: Every Day Cigarettes Passive Smoke Exposure: Never Smokeless Tobacco: Never Sex and Gender Information Value Date Recorded Sex Assigned at Not on file Legal Sex Male 8:43 AM EDT Gender Identity Not on file Sexual Orientation Not on file documented as of this encounter Ordered Prescriptions Prescription Sig Dispense Quantity Refills Last Filled Start Date End Date propranoloL (INDERAL) 10 mg Oral TabletIndications: Tremor Take 2 Tablets by mouth every 12 hours. 120 Tablet 2 09/24/2024 documented in this encounter Miscellaneous Notes * Telephone Encounter - Barry Hoffman MD - 09/24/2024 10:06 AM EDT Record reviewed, request appropriate Will refill Rx for patient. * Telephone Encounter - Kelly lGass MA - 09/24/2024 9:23 AM EDT patient: Patient confirmed he is taking 2 tablets by mouth BID. Can you please refill in place of ?Thank you * Telephone Encounter - Kelly Glass MA - 09/23/2024 11:17 AM EDT Medication Details: Name: Propranolol Tablet Dose: 10 mg Sig: Confirming with patient Side effects: no Verified Pharmacy: yes Last office visit: 07/31/2024 Next office visit: 11/21/2024 Neurology notes reviewed: yes Need AILYN/AILYN result: n/a Last Urine Drug Screen (must be at least annual if on controlled substance): n/a Drug Contract Signed: n/a documented in this encounter Plan of Treatment Upcoming Encounters Date Type Department Care Team (Late st Contact Info) Description 11/21/2024 2:00 PM EDT Office Visit SEP Neurology [facility] [address] [place] [address] Milo Lancaster MD [address] [place] [address] 03/05/2025 10:00 AM EST Office Visit [facility]G RHEUMATOLOGY [facility] [address] [place] [address] Carmen Kennedy MD [address] [place] [address] documented as of this encounter Visit Diagnoses Diagnosis Tremor- Primary Abnormal involuntary movements documented in this encounter Discontinued Medications Medication Sig Discontinue Reason Start Date End Da te propranoloL (INDERAL) 10 mg Oral Tablet Take 1 Tablet by mouth every 12 hours for 14 days, THEN 2 Tablets every 12 hours for 30 days. Reorder 07/31/2024 09/23/2024 documented as of this encounter
[2024-10-07 11:37] VITALS: BP 139/95; PULSE 72; RESP 20; TEMP 37.1; O2SAT 97; BMI 29.5
[2024-10-07 11:45] VITALS: BP 131/92; PULSE 70; O2SAT 96
[2024-10-07 12:00] VITALS: BP 147/104; PULSE 65; O2SAT 95
--- NOTE | 2024-10-07 12:10 | ED_ITS ---
Discharge Plan Disposition Patient Disposition: Home, Self-Care Prescriptions Prescriptions: New cyclobenzaprine 10 mg tablet 10 mg PO TID PRN (Reason: muscle spasm) 5 Days Qty: 15 0RF lidocaine 4 % adhesive patch,medicated 1 patch topical DAILY Qty: 5 0RF Rx Instructions: may leave on for up to 12 hrs ibuprofen 800 mg tablet 800 mg PO TID PRN (Reason: pain) 7 Days Qty: 20 0RF prednisone 50 mg tablet 50 mg PO DAILY 5 Days Qty: 5 0RF Rx Instructions: Please begin 1 day after ED visit No Action ibuprofen 800 mg tablet 800 mg PO Q8H Qty: 90 2RF prednisone 50 mg tablet 50 mg PO DAILY 5 Days Qty: 5 0RF Referrals Follow up/Referrals: Kristina Wright APRN [Primary Care Provider, Medical] - See instructions Activity Restrictions/Add. Instructions Additional Instructions/Restrictions: You have no clinical signs or symptoms of central nervous system compression that would require emergency MRI or emergency neurosurgical intervention. Please continue to follow-up with your neurosurgeon and technical training manager as you have previously been doing. Return with any significant lower extremity weakness persistent bowel or bladder incontinence urinary retention numbness between your legs high fevers or other concerns. Clinical Impressions Clinical Impression: Chronic back pain Instructions Patient Instructions: DI for Low Back Pain Print Language Print Language: Swiss Discharge ED Provider: Aundrea Lynne General Adult HPI General Chief complaint: Back Pain/Injury Stated complaint: back pain, incontinence Time Seen by Provider: 10/07/24 11:22 Mode of Arrival: Wheelchair Source of Information: Patient Description of Symptoms (Recalled from ER Triage Doc. by RN): Pt reports having right side low back pain that is ongoing for 2-3 years. Pt reports having worsening pain that radiates into his right leg. Pt also states he has noticed incontinence of bladder for approx 1 week. History of Present Illness HPI narrative: Patient is a 54-year-old male presenting today with chronic back pain that is been worsening recently. States has had pain for 2 to 3 years. Has symptoms that are radiating down into his leg. He denies any significant urinary incontinence to me however did tell nursing that he had some bladder incontinence. When asked further about this he states he has had some overflow very mild incontinence but no complete loss of bladder fluid. No bowel incont inence no saddle anesthesia no paralysis no fevers. States he has been evaluated extensively by neurosurgeon has had CT imaging that has been done and was supposed to follow-up with physical therapy however he could not tolerate this therefore an outpatient MRI has not yet been approved but he is being followed by them. Additionally he has been seen by technical training manager and they believe he might have some rheumatoid arthritis but have not started on any immune suppressing agents because they are worried about his immune system. Related Data Previous Rx's ?Medication ?Instructions ?Recorded ibuprofen 800 mg tablet 800 mg PO Q8H #90 tabs 04/27 prednisone 50 mg tablet 50 mg PO DAILY 5 days #5 tab s 12/10/23 cyclobenzaprine 10 mg tablet 10 mg PO TID PRN muscle s pasm 5 10/07/24 days #15 tabs ibuprofen 800 mg tablet 800 mg PO TID PRN pain 7 day s #20 10/07/24 tabs lidocaine 4 % topical patch 1 patch topical DAILY #5 e a 10/07/24 prednisone 50 mg tablet 50 mg PO DAILY 5 days #5 tab s 10/07/24 Allergies Allergy/AdvReac Type Severity Reaction Status Date / Time grass pollen-perennial rye, Allergy Verified 04/26/23 11:04 standar shellfish derived Allergy Verified 04/26/23 11:04 [facility] Disclaimer: The information contained in this section may have been updated after the patient was seen, as this information can be updated by other users. Medical History Anxiety Depression Social History Smoking Status: Current every day smoker tobacco type: cigarettes packs per day: 1 second hand exposure: No alcohol intake: never current occupational status: other Travel in the last 8 weeks?: None Have you lived/traveled outside [place] in past 30 days?: No Contact w/someone who lives/traveled outside [place] past 30 days?: No Exposure to someone with infectious disease in past 14 days?: No Do you have a fever (greater than 100.4 F or 38 C)?: No Have you tested positive for COVID-19?: No Exposed to someone with COVID-19 in past 14 days?: No Do you have a sore throat?: No Do you have a cough?: No Do you have any weakness?: No Do you have any diarrhea?: No Are you experiencing any unusual bleeding?: No Do you have any muscle aches/pain?: No Do you have any abdominal pain?: No Are you experiencing loss of taste or smell?: No Other Medical History Have you received the Flu Vaccine for this season: No Have you received the Pneumonia Vaccine: No ROS Obtained: Yes All systems reviewed & no additional complaints except as documented Physical Exam General General appearance: alert and in no apparent distress Respiratory Respiratory exam: Present normal lung sounds bilaterally Cardiovascular Cardiovascular exam: Present regular rate Back Exam Back exam: Present tenderness (No midline tenderness there is normal neurovascular exam distal to this no saddle anesthesia) Neurological Exam Neurological exam: Present alert and oriented X3 Medical Decision Making Medical Records Screening: Per USPSTF and CDC recommendations, given the prevalence of disease in our region, it is our hospital?s policy to screen for HIV and viral Hepatitis for all patients aged 18 and over and those with ongoing risk factors. Fran Inquiry Pt receiving controlled substance: No Vital Signs: 10/07/24 11:37 Temperature 98.8 F Temperature Source Oral Pulse Rate [Left] 72 Respiratory Rate 20 Blood Pressure [Right Arm] 139/95 H Blood Pressure Mean [Right Arm] 109 Blood Pressure Source [Right Arm] Automatic Cuff 02 Sat by Pulse Oximetry 97 Oxygen Delivery Method Room Air Orders (Tests/Meds): ED MEDICATIONS Generic Name Dose Route Start Last Admin Trade Name Freq PRN Reason Stop Dose Admin Cyclobenzaprine HCl 10 mg 10/07/24 12:06 Cyclobenzaprine 10mg Tablet PO 10/07/24 12:07 ONCE ONE Ketorolac Tromethamine 30 mg 10/07/24 12:06 Ketorolac 30mg/Ml Vial IM 10/07/24 12:07 ONCE ONE Lidocaine 1 each 10/07/24 12:06 Lidocaine 5% Transdermal Patch TD 10/07/24 12:07 ONCE ONE Prednisone 60 mg 10/07/24 12:06 Prednisone 20mg Tab PO 10/07/24 12:07 ONCE ONE ORDERS Category Date Time Status HIV Combo Stat Lab 10/07/24 11:44 Ordered Hepatitis C Ab Qual. W/ RFX Stat Lab 10/07/24 11:44 Ordered Medical Decision Narrative: 54-year-old with above history and physical no red flags from history or physical standpoint to suggest that he has any central nervous system sign ificant compression that would require emergent neurosurgical we will intervention. He has been dealing with this for several years and has been outpatient followed by rheumatology and neurosurgery and seems to be getting appropriate workup and evaluation. No emergent indication for an MRI right now as he has no symptoms to suggest that he has cauda equina syndrome etc. He did note to the nurses that he had some bladder incontinence but it sounds like he is only had a little bit of overflow incontinence and no significant urinary incontinence also he has no other signs or symptoms of cauda equina. I did discuss with him and told him to come back if he is having any significant urinary incontinence bowel incontinence lower extremity weakness fevers etc. He is understanding of the symptomatic medications given to him he is also been advised to follow-up with his technical training manager in addition to his neurosurgeon. Claims that he has polyarthralgias at different times and all of this could also be associated with underlying rheumatologic disorders that could be improved with immunologic's. Nonetheless steroids are indicated today and may give him some improvement. Patient's understanding of his follow-up instructions and return precautions and was discharged in stable condition with symptomatic medication sent to his pharmacy Critical Care Critical Care Time Critical Care Time: No
[2024-10-07 12:14] VITALS: BP 126/90; PULSE 67; O2SAT 96
[2024-10-07] MEDS: KETOROLAC 30MG/ML VIAL 30 MG IM (12:18)
[2024-10-07] MEDS: CYCLOBENZAPRINE 10MG TABLET 10 MG PO (12:18)
[2024-10-07] MEDS: LIDOCAINE 5% TRANSDERMAL PATCH 1 EACH TD (12:19)
[2024-10-07 12:32] VITALS: BP 126/90; PULSE 80; RESP 20; TEMP 36.8; O2SAT 98
== END 2024-10-07 12:34 | disposition home or self-care (01) ==
PROVIDERS: Emergency Provider Student in an Organized Health Care Education/Training Program; PCP Nurse Practitioner Family
DX: M54.50 Low back pain, unspecified (principal); G89.29 Other chronic pain
CPT/HCPCS: 96372; 99283; J1885

== ENCOUNTER 2024-10-23 11:00 | Outpatient (RCR) | payer BC, SELFPAY | END 2024-10-23 23:59 | disposition home or self-care (01) | LOC: PT 11:00 | PROVIDERS: PCP Nurse Practitioner Family; Visit Provider Neurological Surgery | DX: M54.16 Radiculopathy, lumbar region (principal) | CPT/HCPCS: 97014; 97110; 97163; G0283 ==

== ENCOUNTER 2024-11-11 15:00 | Outpatient (RCR) | payer BC, SELFPAY | END 2024-11-11 23:59 | disposition home or self-care (01) | LOC: PT 15:00 | PROVIDERS: PCP Nurse Practitioner Family; Visit Provider Neurological Surgery | DX: M54.16 Radiculopathy, lumbar region (principal) | CPT/HCPCS: 97014; 97032; 97110; G0283 ==